=== PATIENT | male | born 1965 | race Two or more races ===

== ENCOUNTER 2018-07-27 07:04 | Emergency (ER) | payer MEDICARE, OTHER ==
[~2018-07-27] VITALS: Ht 177.8 cm; Wt 118.0 kg
--- NOTE | 2018-07-27 07:15 | NUR ---
[facility] [id number][facility] HYPERGLYCEMIA 497, PER PT "HE DID NOT GET HIS INSULIN YESTERDAY". PT DENIES PAIN. NAD NOTED. RESP EVEN AND UNLABORED. PT ON MONITOR IN BED 3. WILL CONTINUE TO MONITOR.
--- NOTE | 2018-07-27 07:25 | NUR ---
URINE COLLECTED AND SENT TO LAB
[2018-07-27] MEDS ORDERED: IV NS 0.9% 1,000 ML BAG IV ONE ×2 (07:30)
--- NOTE | 2018-07-27 07:35 | NUR ---
PHLEB AT BEDSIDE FOR LAB DRAW
[2018-07-27 07:47] LABS: APPEARANCE,URINE CLEAR (CLEAR); BILIRUBIN,URINE NEGATIVE (NEGATIVE); BLOOD, URINE NEGATIVE Ery/uL (NEGATIVE); COLOR,URINE YELLOW (YELLOW); KETONES,URINE TRACE (NEGATIVE); LEUKOCYTE ESTERASE ,URINE NEGATIVE (NEGATIVE); NITRITE, URINE NEGATIVE (NEGATIVE); PH,URINE 6.5 (5.0-8.0); PROTEIN,URINE NEGATIVE (NEGATIVE); UGLUCOSE 3+ mg/dL (NEGATIVE); UROBILINOGEN,URINE 0.2 EU/dL (0.2)
[2018-07-27 07:49] LABS: BASOPHILS % (AUTO) 0.5 % (0.0-2.0); EOSINOPHILS % (AUTO) 1.8 % (0.0-6.0); HEMATOCRIT 44 % (39-51); HEMOGLOBIN 15.1 g/dL (13.5-17.5); LYMPHOCYTES # (AUTO) 1.4 /CMM (0.8-4.8); LYMPHOCYTES % (AUTO) 23.1 % (20.0-44.0); MEAN CORPUSCULAR HGB CONC 34 g/dl (31.0-36.0); MEAN CORPUSCULAR VOLUME 91 fL (80-96); MONOCYTES # (AUTO) 0.6 /CMM (0.1-1.30); MONOCYTES % (AUTO) 9.1 % (2.0-12.0); NEUTROPHILS % (AUTO) 65.5 % (43.0-81.0); PLATELET COUNT (AUTO) 193 /CMM (150-450); RED BLOOD CELL COUNT(AUTO) 4.87 MIL/uL (4.5-6.0); WHITE BLOOD COUNT (AUTO) 6.1 K/uL (4.3-11.0)
[2018-07-27 07:54] LABS: BACTERIA,URINE Rare /HPF (None Seen); RBC,URINE 0-2 /HPF (0-2); SQUAMOUS EPITHELIAL CELL,UR Few /HPF (None Seen); WBC,URINE 0-2 /HPF (0-3)
[2018-07-27 08:02] LABS: ALBUMIN 3.1 g/dL (3.4-5.0); BILIRUBIN,DIRECT 0.1 mg/dL (0.0-0.2); BILIRUBIN,TOTAL 0.3 mg/dL (0.2-1.0); CALCIUM, SERUM 8.2 mg/dL (8.5-10.1); POTASSIUM 4.4 mmol/L (3.5-5.1); TOTAL PROTEIN, SERUM 6.7 g/dL (6.4-8.2)
[2018-07-27] MEDS ORDERED: INSULIN REGULAR, HUMAN 100 UNIT/ML 10 ML VIAL ONE ×2 (08:09→09:33)
[2018-07-27] MEDS ORDERED: METFORMIN XR 500 MG TAB.SR.24H PO ONE (08:22)
[2018-07-27] MEDS ORDERED: INSULIN REGULAR, HUMAN 100 UNIT/ML 10 ML VIAL SQ ONE (08:30)
[2018-07-27] MEDS ORDERED: METFORMIN 500 MG TABLET PO ONE (08:30)
--- NOTE | 2018-07-27 08:51 | NUR ---
BG 302. AWARE.
[2018-07-27] MEDS ORDERED: INSULIN REGULAR, HUMAN 100 UNIT/ML 3 ML VIAL IV ONE (09:30)
--- NOTE | 2018-07-27 10:15 | NUR ---
CALLED [facility] FOR TRANSPORT ETA OF [id number] WAS GIVEN. TRIP#[id number]
[2018-07-27 10:22] VITALS: BP 118/72
--- NOTE | 2018-07-27 11:40 | NUR ---
REPORT GIVEN TO TAWNYA NGUYEN FOR LEIDY
--- NOTE | 2018-07-27 11:48 | NUR ---
REPORT GIVEN TO CHARGE NURSGE IN [facility]
--- NOTE | 2018-07-27 12:15 | NUR ---
PT TRANSPORTED TO [facility] VIA PRIVATE AMBULANCE. PT LEFT IN STABLE CONDTION, GIVEN ALL PAPERWORKS TO TRANSPORT STAFF, LARON FROM [facility] AWARE.
== END 2018-07-27 13:25 ==
LOC: ER 07:06
DX: E11.65 Type 2 diabetes mellitus with hyperglycemia (principal); F20.9 Schizophrenia, unspecified; F41.9 Anxiety disorder, unspecified; Z91.19 Patient's noncompliance with other medical treatment and regimen
CPT/HCPCS: 36415; 80048-TC; 80076-TC; 81000-TC; 82010-TC; 82962-TC; 83690-TC; 85025-TC; J1815; J7030

== ENCOUNTER 2018-10-13 04:41 | Inpatient (IN) | payer MEDICARE, OTHER ==
[~2018-10-13] VITALS: Ht 180.3 cm; Wt 111.1 kg
--- NOTE | 2018-10-13 04:55 | NUR ---
BIB RA. AAOX4. NAD. NO SOB, BREATHING EVEN AND UNLABORED. CAME IN ON A WHEELCHAIR BUT ABLE TO AMBULATE ON HIS OWN. DENIES CP. CAME IN FOR C/O RFA SWELLING AND REDNESS, WARM AND DRY TO TOUCH. PT ALSO COMPLAINS OF R LOWER BACK PAIN, SHARP 01/15. TO ER BED 2. AWAITING MD FOR EVAL.
--- NOTE | 2018-10-13 05:21 | NUR ---
iv line obtained on l ac 18g. blood drawn and botany laboratory assistant at bedside. ekg done.
[2018-10-13 05:23] LABS: BASOPHILS # (AUTO) 0.1 /CMM (0.0-0.2); BASOPHILS % (AUTO) 0.6 % (0.0-2.0); HEMATOCRIT 39 % (39-51); HEMOGLOBIN 13.2 g/dL (13.5-17.5); LYMPHOCYTES # (AUTO) 0.5 /CMM (0.8-4.8); MEAN CORPUSCULAR HGB CONC 34 g/dl (31.0-36.0); MEAN CORPUSCULAR VOLUME 91 fL (80-96); MONOCYTES # (AUTO) 1.4 /CMM (0.1-1.30); NEUTROPHILS # (AUTO) 15.2 /CMM (1.8-8.9); NEUTROPHILS % (AUTO) 88.4 % (43.0-81.0); PLATELET COUNT (AUTO) 246 /CMM (150-450); WHITE BLOOD COUNT (AUTO) 17.2 K/uL (4.3-11.0)
[2018-10-13] MEDS ORDERED: PIPERACILLIN /TAZOBACTAM 3.375 G VIAL IV ONE (05:27)
[2018-10-13] MEDS ORDERED: IBUPROFEN 600 MG TABLET PO ONE ×2 (05:28→05:30)
[2018-10-13] MEDS ORDERED: VANCOMYCIN 1 GM in IV D5W 250 ML IV ONE (05:30)
[2018-10-13] MEDS ORDERED: IV NS 0.9% 1,000 ML BAG IV ONE (05:30)
[2018-10-13] MEDS ORDERED: PIPERACILLIN /TAZOBACTAM 3.375 G in IV D5W 50 ML IV ONE (05:30)
--- NOTE | 2018-10-13 05:31 | NUR ---
XRAY AT BEDSIDE
--- NOTE | 2018-10-13 05:35 | NUR ---
PAGED DR. GORDILLO FOR A PANNEL CALL.
[2018-10-13] MEDS ORDERED: VANCOMYCIN 1 GM VIAL ONE (05:43)
[2018-10-13 05:48] LABS: ALBUMIN 2.7 g/dL (3.4-5.0); BILIRUBIN,DIRECT 0.2 mg/dL (0.0-0.2); BILIRUBIN,TOTAL 0.9 mg/dL (0.2-1.0); CALCIUM, SERUM 8.9 mg/dL (8.5-10.1); CREATININE 1.4 mg/dL (0.6-1.3); POTASSIUM 4.7 mmol/L (3.5-5.1)
--- NOTE | 2018-10-13 06:17 | NUR ---
EPIC PAGED FOR PANEL CALL
--- NOTE | 2018-10-13 06:38 | NUR ---
PT IN BED SLEEPING. EASILY ARROUSABLE.
--- NOTE | 2018-10-13 06:42 | NUR ---
EPIC PAGED FOR PANEL CALL
--- NOTE | 2018-10-13 06:42 | NUR ---
Karine chakraborty in ED - 10/13/18 at 0644 by ARTIE PT PLACED ON VIA NC 2LPMFOR O2 SAT 93%.
--- NOTE | 2018-10-13 06:44 | NUR ---
PT PLACED ON 02 VIA NC 2LPMFOR O2 SAT 93%. DR. MUÑOZ MADE AWARE.
--- NOTE | 2018-10-13 07:18 | NUR ---
REPORT GIVEN TO TAWNYA ANDREWS FOR LEIDY. PT IN BED SLEEPING. EASILY ARROUSABLE. NAD NOTED.
--- NOTE | 2018-10-13 08:32 | NUR ---
report given to Trena BOWLING for idalia.
--- NOTE | 2018-10-13 08:45 | NUR ---
LABOR TRAINING MANAGER DOCTOR FROM [facility]
[2018-10-13 09:58] LABS: CREATININE, URINE 43.9 MG/DL (30.0-125.0); URINE TOTAL PROTEIN 146.1 mg/dL (0-11.9)
--- NOTE | 2018-10-13 10:00 | NUR ---
patient wheelled via gurney accompanied by emt and rn in no apparent distress noted.
[2018-10-13 10:06] LABS: APPEARANCE,URINE CLEAR (CLEAR); BILIRUBIN,URINE NEGATIVE (NEGATIVE); BLOOD, URINE 2+ Ery/uL (NEGATIVE); COLOR,URINE YELLOW (YELLOW); KETONES,URINE 2+ (NEGATIVE); LEUKOCYTE ESTERASE ,URINE NEGATIVE (NEGATIVE); NITRITE, URINE NEGATIVE (NEGATIVE); PROTEIN,URINE 2+ mg/dl (NEGATIVE); UGLUCOSE 3+ mg/dL (NEGATIVE); UROBILINOGEN,URINE 0.2 EU/dL (0.2)
--- NOTE | 2018-10-13 10:20 | NUR ---
MS ADMISSION NOTE RECEIVED PT FROM ER VIA GURNEY. PT AMBULATED WITH ASSIST TO BED. PT IS ALERT AND ORIENTED X4, DENIES CHEST PAIN, SOB, N/V. BREATHING IS EVEN AND UNLABORED ON 2L NC. PT STATES HE HAS PAIN IN THE RIGHT ARM, LOWER BACK, AND LEFT LEG RATED 10/10 AND SHARP. PT HAS A LEFT AC #18G IV THAT IS PATENT, CLEAN, DRY AND INTACT. UNIT ORIENTATION PROVIDED PER PROTOCOL. ALL BELONGINGS ACCOUNTED FOR, PT MEDICATIONS TAKEN TO PHARMACY, PACK OF CIGARETTES AND JOINT FINISHER TAKEN AND PLACED AT NURSING STATION. BED IS LOCKED AND IN LOWEST POSITION, SIDE RAILS UP X2, BED ALARM ON, CALL LIGHT AND POSSESSIONS WITHIN REACH. AWAITING ADMISSION ORDERS FROM STEPHAN CUI NP.
--- NOTE | 2018-10-13 10:27 | NUR ---
MS RN NOTE INFORMED STEPHAN CUI NP OF PT ADMISSION AND ELEVATED BLOOD SUGAR, AWAITING RESPONSE.
[2018-10-13 10:30] VITALS: BP 130/82
[2018-10-13] MEDS ORDERED: DEXTROSE 50%-WATER 50 ML DISP.SYRIN IV PRN (10:30)
--- NOTE | 2018-10-13 10:46 | NUR ---
MS RN NOTE PER STEPHAN CUI, BACK TENDER KEEP PT NPO, START AGGRESSIVE SLIDING SCALE INSULIN PROTOCOL. PER STEPHAN, NO FOOD OR SNACK WITH INSULIN ADMINISTRATION AT THIS TIME. AWAITING STATE LAB GLUCOSE LAB DRAW PER PROTOCOL.
[2018-10-13 10:51] LABS: WBC,URINE 0-2 /HPF (0-3)
[2018-10-13 10:55] LABS: BACTERIA,URINE Few /HPF (None Seen); SQUAMOUS EPITHELIAL CELL,UR Rare /HPF (None Seen)
[2018-10-13] MEDS ORDERED: ONDANSETRON HCL/PF 4 MG/2 ML VIAL IVP PRN (12:00)
--- NOTE | 2018-10-13 12:00 | NUR ---
MS RN CRITICAL LAB VALUE CRITICAL LAB VALUE OF GLUCOSE 519 REPORTED TO STEPHAN CUI NP PER PROTOCOL. ORDERS RECEIVED TO INITIATE AGRESSIVE SLIDING SCALE INSULIN AND ADMINISTER PER SLIDING SCALE. INFORMED STEPHAN THAT PT IS STILL NPO, PER STEPHAN RE CHECK BS IN 1 HOUR.
[2018-10-13] MEDS: BLOOD SUGAR DIAGNOSTIC 1 EACH STRIP IN SCH ×3 (12:15→20:54)
[2018-10-13] MEDS ORDERED: METF-440 PO (12:23)
[2018-10-13] MEDS: INSULIN REGULAR, HUMAN 100 UNIT/ML 3 ML VIAL SQ PRN ×2 (12:23→18:12)
[2018-10-13] MEDS ORDERED: ARIP5TAB10 PO (12:23)
[2018-10-13] MEDS ORDERED: FEE PK DOSING 1 MIN EA MC ONE (12:56)
[2018-10-13 13:47] LABS: EOSINOPHIL,URINE None Seen
--- NOTE | 2018-10-13 14:02 | NUR ---
MS RN NOTE INFORMED STEPHAN CUI NP THAT PT BS CHECK IS 447 AND THEN 427. PER STEPHAN NO STAT LAB DRAW NEEDED, ORDERS RECEIVED FOR 15 UNITS REGULAR INSULIN X1.
--- NOTE | 2018-10-13 14:03 | NUR ---
Social service consult requested by VILMA Barrera for homelessness. Pt. is a 52 year old male who was admitted to [facility] for sepsis and hyperglycemia. SW met with pt. bedside. Pt. is alert and oriented x 4. Pt. wears eyeglasses. Pt. had his eyes closed throughout the entire assessment. Pt. states he resides with his sister in an apartment located at [address] [place] [address]. However, pt. states he doesn't want to live there and wants to live in an assisted living/board and care facility. SW informed pt. she will inform lead case manager regarding his request. Pt's emergency contact is his mother Danielle Devi . Pt. states he is ambulatory with a walker. Pt. receives approximately $931 in [employer] money per month and states he will be getting an increase as well. Pt. denies any current alcohol use but has a history of alcohol use 20 years ago. Pt. has a history of using marijuana and "ICE" (crystal methamphetamines). Pt. is denies any current use of drugs. Pt. denies any psychiatric diagnoses. Pt. is diabetic. Pt's only complaint is that he is in pain. Pt' RN Tosha was bedside. No other social service needs are requested at this time.
[2018-10-13] MEDS ORDERED: INSULIN REGULAR, HUMAN 100 UNIT/ML 3 ML VIAL SQ ONE (14:30)
[2018-10-13] MEDS: IV NS 0.9% 1,000 ML IV PRN (14:49)
[2018-10-13 16:00] VITALS: BP 138/69
--- NOTE | 2018-10-13 16:24 | NUR ---
RN PT OFF UNIT PT OFF UNIT FOR CT SCAN.
--- NOTE | 2018-10-13 16:33 | NUR ---
MS BOWLING PT BACK ON UNIT PT BACK ON UNIT FROM CT SCAN
[2018-10-13] MEDS: HYDROCODONE/APAP 5/325MG 1 EACH TABLET PO PRN ×2 (16:51→21:56)
[2018-10-13] MEDS: PIPERACILLIN /TAZOBACTAM 3.375 G in IV D5W 50 ML IV SCH ×2 (16:52→20:54)
[2018-10-13] MEDS: VANCOMYCIN 1.25 GM in IV D5W 500 ML IV SCH (18:03)
--- NOTE | 2018-10-13 18:34 | NUR ---
MS RN CLOSING NOTE PT IN BED, RESTING WITH EYES CLOSED AND EASILY AROUSABLE. PT IS ALERT AND ORIENTED X4, DENIES CHEST PAIN, SOB, N/V. BREATHING IS EVEN AND UNLABORED ON 2L NC. PT HAS A LEFT AC #18G IV IS INFUSING ORDERED WITHOUT REDNESS OR SWELLING. UNIT ORIENTATION PROVIDED PER PROTOCOL. BED IS LOCKED AND IN LOWEST POSITION, SIDE RAILS UP X2, BED ALARM ON, CALL LIGHT AND POSSESSIONS WITHIN REACH. WILL ENDORSE TO SURVEY DIRECTOR NURSE FOR CONTINUITY OF CARE.
[2018-10-13] MEDS: ACETAMINOPHEN 325 MG TABLET PO PRN (18:39)
--- NOTE | 2018-10-13 18:39 | NUR ---
MS RN NOTE TYLENOL 650MG ADMINISTERED ORDERED FOR TEMPERATURE 100.7
[2018-10-13 20:00] VITALS: BP 143/77
--- NOTE | 2018-10-13 20:00 | NUR ---
MS/RN OPENING NOTES RECEIVED PATIENT IN BED, AWAKE, ALERT X3, ABLE TO VERBALIZE NEEDS, WITH CELLULITIS ON RIGHT UPPER ARM, RESPIRATIONS EVEN AND UNLABORED, REQUIRE ASSISTANCE AND MONITORING , BLOOD SUGAR ELEVATED AND WITH FEVER,ON ANTIBIOTIC THERAPHY, VITAL SIGNS CHECK . BED LOCKED CALL LIGHTS WITHIN REACH. INSTRUCTED TO CALL FOR ASSISTANCE, REQUESTED FOR SNACKS ONCE BLOOD SUGAR CHECK, EDUCATED ON DIET, WILL MONITOR.
[2018-10-13] MEDS: *INSULIN REGULAR(HUMULIN R)HUM 100 UNIT/ML VIAL SQ PRN (21:12)
--- NOTE | 2018-10-13 22:16 | NUR ---
MS/RN NOTES JENNIFER MCKEON MD CONTACTED LEFT MESSAGE AWAITING FOR ORDER FOR PAIN OF 9/10 LEVEL REPORTED BY PATIENT UNRELIEVED WITH NORCO 5-325 MG PO. WILL MONITOR.
[2018-10-14] MEDS: HYDROCODONE/APAP 5/325MG 1 EACH TABLET PO PRN ×3 (00:14→17:34)
--- NOTE | 2018-10-14 00:17 | NUR ---
MS/RN NOTES PATIENT REQUESTED FOR NORCO TO RELIEVE PAIN AT THIS TIME WILL MONITOR.
[2018-10-14] MEDS: ACETAMINOPHEN 325 MG TABLET PO PRN ×3 (02:12→20:21)
[2018-10-14] MEDS: PIPERACILLIN /TAZOBACTAM 3.375 G in IV D5W 50 ML IV SCH ×4 (02:40→20:24)
[2018-10-14] MEDS: BLOOD SUGAR DIAGNOSTIC 1 EACH STRIP IN SCH ×4 (06:08→21:24)
[2018-10-14] MEDS: VANCOMYCIN 1.25 GM in IV D5W 500 ML IV SCH ×3 (06:09→23:46)
[2018-10-14] MEDS: INSULIN REGULAR, HUMAN 100 UNIT/ML 3 ML VIAL SQ PRN ×3 (06:27→17:40)
--- NOTE | 2018-10-14 06:32 | NUR ---
MS/RN NOTES PATIENT BLOOD SUGAR CHECK AT 347, ADMINISTERED COVERAGE, HAD SNACK OF MILK AND CRACKERS. REPORTED BEING HUNGRY. EDUCATED REGARDING DIET RECOMMENDED. VERBALIZED.
--- NOTE | 2018-10-14 06:36 | NUR ---
313-MS/RN NOTES PATIENT ABLE TO SLEEP INTERMITENTLY WITH PAIN MONITORING, ON IV ANTIBIOTIC , ABLE TO VERBALIZE NEEDS, PROVIDED COMFORT MEASURES, MONITORED GYPO.HYPER GLYCEMIA. BED LOCKED, CLAL LIGHTS WITHIN REACH.]
--- NOTE | 2018-10-14 07:23 | NUR ---
ms/rn notes patient requested for pain medication 12/15 norco 5-325 mg po given, will monitor.
--- NOTE | 2018-10-14 07:30 | NUR ---
MS RN OPENING NOTE RECEIVED PATIENT FROM ENTRY LEVEL SOFTWARE DEVELOPER RN. PATIENT A/OX4, DENIES CHEST PAIN, SHORTNESS OF BREATH, N/V, BREATHING IS EVEN AND UNLABORED ON 2LPM N/C. PATIENT JUST RECEIVED NORCO / FROM ENTRY LEVEL SOFTWARE DEVELOPER RN FOR RIGHT SHOULDER PAIN. LEFT AC 18 GAUGE INFUSING VANCO ORDERED W/O REDNESS OR SWELLING. ALL NEEDS ATTENDED TO, BED LOCKED AND LOWEST POSITION, SIDE RAILS UPX2, SEIZURE PRECAUTIONS IN PLACE, BED ALARM ACTIVE, CALL LIGHT AND POSSESSIONS WITHIN REACH.
[2018-10-14 07:55] LABS: ALBUMIN 2.2 g/dL (3.4-5.0); BILIRUBIN,TOTAL 0.7 mg/dL (0.2-1.0); CALCIUM, SERUM 8.5 mg/dL (8.5-10.1); CREATININE 0.9 mg/dL (0.6-1.3); MAGNESIUM 1.9 mg/dL (1.8-2.4); POTASSIUM 4.4 mmol/L (3.5-5.1); TOTAL PROTEIN, SERUM 6.7 g/dL (6.4-8.2)
[2018-10-14 08:00] VITALS: BP 158/82
--- NOTE | 2018-10-14 08:10 | NUR ---
MS BOWLING CRITICAL VALUE RECEIVED CRITICAL GLUCOSE VALUE FROM LAB (367). INFORMED STEPHAN CUI NP. RECEIVED ORDERS TO REPEAT ACCUCHECK AND INFORM HER OF RESULTS.
[2018-10-14] MEDS: PANTOPRAZOLE 40 MG TABLET.DR PO SCH (08:28)
[2018-10-14] MEDS: ARIPIPRAZOLE 5 MG TABLET PO SCH (08:28)
[2018-10-14] MEDS: NICOTINE PATCH (14MG) 14 MG PATCH.TD24 TD SCH (08:28)
[2018-10-14 08:30] LABS: THYROID STIMULATING HORMONE 0.646 uIU/mL (0.358-3.74)
--- NOTE | 2018-10-14 08:35 | NUR ---
MS RN NOTE INFORMED STEPHAN CUI NP OF NEW ACCUCHECK RESULT. PER STEPHAN GIVE SCHEDULE LANTUS.
[2018-10-14] MEDS ORDERED: PANTOPRAZOLE 40 MG VIAL IV SCH (09:00)
[2018-10-14 09:19] LABS: BASOPHILS % (AUTO) 0.2 % (0.0-2.0); EOSINOPHILS % (AUTO) 0.2 % (0.0-6.0); HEMATOCRIT 40 % (39-51); HEMOGLOBIN 13.4 g/dL (13.5-17.5); LYMPHOCYTES # (AUTO) 0.4 /CMM (0.8-4.8); LYMPHOCYTES % (AUTO) 3.2 % (20.0-44.0); MEAN CORPUSCULAR HGB CONC 33 g/dl (31.0-36.0); MEAN CORPUSCULAR VOLUME 92 fL (80-96); MONOCYTES # (AUTO) 1.2 /CMM (0.1-1.30); MONOCYTES % (AUTO) 8.3 % (2.0-12.0); NEUTROPHILS # (AUTO) 12.6 /CMM (1.8-8.9); NEUTROPHILS % (AUTO) 88.1 % (43.0-81.0); PLATELET COUNT (AUTO) 191 /CMM (150-450); RED BLOOD CELL COUNT(AUTO) 4.41 MIL/uL (4.5-6.0); WHITE BLOOD COUNT (AUTO) 14.2 K/uL (4.3-11.0)
[2018-10-14] MEDS: INSULIN GLARGINE, 100 UNIT/ML CARTRIDGE SQ SCH ×2 (10:51→17:41)
[2018-10-14] MEDS ORDERED: NEUTRA PHOS 1 POWD.PACKET PO ONE (14:00)
[2018-10-14 15:51] VITALS: BP 158/74
--- NOTE | 2018-10-14 15:59 | NUR ---
MS RN NOTE PT WAS FOUND WITH LEFT AC PULLED STATING "IT FELL OUT". NO REDNESS OR SWELLING NOTED. NEW IV INSERTED #22 GAUGE LEFT FOREARM PIV. LINE PATENT, CLEAN, DRY, AND INTACT. PATIENT TOLERATED PROCEDURE WELL AND RECONNECTED TO IV ATB.
--- NOTE | 2018-10-14 16:56 | NUR ---
Patient is alert and pleasant, states he lives locally with his sister. He ambulates with a walker and independent with adl's. Patient does not want to return home. He is requesting B&C or SNF placement. Patient receives approximately $931 in SSI money per month and states he will be getting an increase. Patient denies any current alcohol use but has a history of alcohol use 20 years ago. Will refer patient to local SNF for acceptance. Addendum: 10/14/18 at 1657 by MO MARCH RN Amended: Links added.
[2018-10-14] MEDS: LACTOBACILLUS RHAMNOSUS GG 1 EACH CAP.SPRINK PO SCH (17:33)
[2018-10-14] MEDS: IV NS 0.9% 1,000 ML IV PRN (17:33)
--- NOTE | 2018-10-14 18:24 | NUR ---
MS RN CLOSING NOTE PT IN BED, RESTING WITH EYES CLOSED AND EASILY AROUSABLE. PT IS ALERT AND ORIENTED X4, DENIES CHEST PAIN, SOB, N/V. BREATHING IS EVEN AND UNLABORED ON 2L NC. PT HAS A LEFT FA #22G IV IS INFUSING ORDERED WITHOUT REDNESS OR SWELLING. UNIT ORIENTATION PROVIDED PER PROTOCOL. BED IS LOCKED AND IN LOWEST POSITION, SIDE RAILS UP X2, BED ALARM ON, CALL LIGHT AND POSSESSIONS WITHIN REACH. WILL ENDORSE TO RESOURCE COORDINATOR NURSE FOR CONTINUITY OF CARE.
--- NOTE | 2018-10-14 19:00 | NUR ---
MS RN NOTES Received patient in bed watching TV, alert, oriented x 4. Breathing even and unlabored. Not in any distress, on room air. IV antibiotic infusing well. No complaints at this time. Safety measures in place; call light within reach. Bed in low, locked position.Patient stable as endorsed by the morning RN. Will continue to monitor accordingly
[2018-10-14 20:00] VITALS: BP 168/80
--- NOTE | 2018-10-14 20:22 | NUR ---
RN NOTES Patient's temp. is 100.4. Tylenol 650mg PO given as ordered. Cooling measures initiated
[2018-10-14 20:41] VITALS: BP 168/80
[2018-10-14] MEDS: *INSULIN REGULAR(HUMULIN R)HUM 100 UNIT/ML VIAL SQ PRN (21:30)
--- NOTE | 2018-10-14 21:30 | NUR ---
RN NOTES BSL- 273mg/dL. 6units of insulin given per sliding scale. Snacks provided
[2018-10-14 21:50] VITALS: BP 139/76
--- NOTE | 2018-10-14 21:51 | NUR ---
RN NOTES Vital signs rechecked: BP- 139/76mmHg, HR-100bpm, Temp-99.0F
[2018-10-14] MEDS ORDERED: INSULIN GLARGINE, 100 UNIT/ML CARTRIDGE SQ SCH (22:00)
[2018-10-15] MEDS: HYDROCODONE/APAP 5/325MG 1 EACH TABLET PO PRN ×2 (02:37→11:11)
--- NOTE | 2018-10-15 02:38 | NUR ---
RN NOTES Patient c/o generalized pain, 01/15. Eclectic 5-325 given as ordered. Will continue to monitor
[2018-10-15] MEDS: PIPERACILLIN /TAZOBACTAM 3.375 G in IV D5W 50 ML IV SCH ×2 (02:58→10:53)
[2018-10-15] MEDS: BLOOD SUGAR DIAGNOSTIC 1 EACH STRIP IN SCH ×4 (06:33→21:07)
[2018-10-15] MEDS: INSULIN REGULAR, HUMAN 100 UNIT/ML 3 ML VIAL SQ PRN ×3 (06:35→18:00)
--- NOTE | 2018-10-15 06:40 | NUR ---
RN NOTES Patient's BSL 424mg/dL. Stat glucose lab draw done. 20 units of insulin given per sliding scale. VILMA Pinedo made aware. Awaiting for orders
[2018-10-15 06:59] LABS: BASOPHILS # (AUTO) 0.1 /CMM (0.0-0.2); BASOPHILS % (AUTO) 0.4 % (0.0-2.0); CALCIUM, SERUM 7.8 mg/dL (8.5-10.1); CREATININE 0.7 mg/dL (0.6-1.3); EOSINOPHILS % (AUTO) 0.3 % (0.0-6.0); HEMATOCRIT 35 % (39-51); HEMOGLOBIN 11.7 g/dL (13.5-17.5); LYMPHOCYTES # (AUTO) 0.7 /CMM (0.8-4.8); LYMPHOCYTES % (AUTO) 5.9 % (20.0-44.0); MAGNESIUM 1.9 mg/dL (1.8-2.4); MEAN CORPUSCULAR HGB CONC 34 g/dl (31.0-36.0); MEAN CORPUSCULAR VOLUME 90 fL (80-96); MONOCYTES # (AUTO) 1.3 /CMM (0.1-1.30); MONOCYTES % (AUTO) 9.8 % (2.0-12.0); NEUTROPHILS # (AUTO) 10.7 /CMM (1.8-8.9); NEUTROPHILS % (AUTO) 83.6 % (43.0-81.0); PHOSPHORUS 2.3 mg/dL (2.5-4.9); PLATELET COUNT (AUTO) 250 /CMM (150-450); POTASSIUM 4.1 mmol/L (3.5-5.1); RED BLOOD CELL COUNT(AUTO) 3.85 MIL/uL (4.5-6.0); WHITE BLOOD COUNT (AUTO) 12.7 K/uL (4.3-11.0)
--- NOTE | 2018-10-15 07:03 | NUR ---
RN NOTES Lab called for critical value of glucose 381. TRAUMA DIRECTOR Pankaj was already notified earlier. Still waiting for orders
--- NOTE | 2018-10-15 07:08 | NUR ---
MS RN CLOSING NOTES Patient sitting up in bed, alert, oriented x 4. Not in any distress. Peripheral IV infusing at 100mL/hr. All needs attended and met. Will endorse LEIDY to oncoming RN
--- NOTE | 2018-10-15 07:57 | NUR ---
MS RN NOTES PATIENT RESTING INSIDE ROOM. SLEEPING, EASILY AROUSABLE THROUGH VERBAL AND TACTILE STIMULI. BREATHING EVEN AND UNLABORE. NO ACUTE DISTRESS AT THIS TIME. NO CHANGES IN LOC NOTED AT THIS TIME. IV INTACT AND PATENT. WILL CONTINUE TO MONITOR. BED LOCKED AND IN LOW POSITION. BILATERAL UPPER SIDE RAILS UP AND LOCKED. CALL LIGHT WITHIN EASY REACH
[2018-10-15 08:00] VITALS: BP 145/83
[2018-10-15] MEDS: VANCOMYCIN 1.25 GM in IV D5W 500 ML IV SCH (08:37)
[2018-10-15] MEDS: IV NS 0.9% 1,000 ML IV PRN (08:38)
[2018-10-15] MEDS: INSULIN GLARGINE, 100 UNIT/ML CARTRIDGE SQ SCH ×2 (09:09→21:09)
[2018-10-15] MEDS: PANTOPRAZOLE 40 MG TABLET.DR PO SCH (09:10)
[2018-10-15] MEDS: LACTOBACILLUS RHAMNOSUS GG 1 EACH CAP.SPRINK PO SCH ×2 (09:10→18:01)
[2018-10-15] MEDS: ARIPIPRAZOLE 5 MG TABLET PO SCH (09:10)
[2018-10-15] MEDS: NICOTINE PATCH (14MG) 14 MG PATCH.TD24 TD SCH (09:10)
--- NOTE | 2018-10-15 10:47 | NUR ---
MS RN NOTES PATIENT SEEN AND EXAMINED BY STEPHAN CUI LINE CONTROLLER, WITH ORDER TO INFORM PHARMACY TO CHANGE IV ATB TO MIX WITH NS INSTEAD OF D5. PLACED CALL TO PHARMACY AND MADE AWARE. WILL CONTINUE TO MONITOR
[2018-10-15] MEDS ORDERED: VANCOMYCIN 1.25 GM in IV D5W 500 ML IV SCH (11:00)
[2018-10-15] MEDS ORDERED: K PHOS NEUTRAL 250 MG TABLET PO ONE (13:00)
[2018-10-15] MEDS: VANCOMYCIN 1.25 GM in IV NS 0.9% 500 ML IV SCH (15:10)
[2018-10-15] MEDS ORDERED: GADODIAMIDE 5 MMOL/10 ML VIAL ONE (15:59)
[2018-10-15 16:00] VITALS: BP 148/68
--- NOTE | 2018-10-15 17:02 | NUR ---
MS RN NOTES RECEIVED CALL FROM ON/CALL RADIOLOGY REGARDING SHIVAM VENOUS DOPPLER RESULT WITH REPORT OF POSITIVE DVT ON RIGHT BASILIC AND RIGHT CEPHALIC VEIN. PLACED CALL TO STEPHAN CUI PRINCIPAL SOFTWARE ARCHITECT WITH NEW ORDER TO START HEPARIN DRIP. ALSO GOT OK TO START MIDLINE INSERTION. ORDER NOTED AND CARRIED OUT. PATIENT MADE AWARE AND VERBALIZED UNDERSTANDING. PHARMACY MADE AWARE. WILL CONTINUE TO MONITOR
[2018-10-15] MEDS: PIPERACILLIN /TAZOBACTAM 3.375 G in IV NS 0.9% 50 ML IV SCH ×2 (17:35→23:29)
[2018-10-15] MEDS: ACETAMINOPHEN 325 MG TABLET PO PRN (18:01)
--- NOTE | 2018-10-15 18:26 | NUR ---
MS RN NOTES INIATED HEPARIN BOLUS 8000 UNITS IV, WITNESSED BY JUNIOR BOWLING. AWAITING FOR HEPARIN DRIP FROM PHARMACY
[2018-10-15] MEDS ORDERED: HEPARIN SODIUM, PORCINE 5000 UNITS/1 ML VIAL IV ONE (18:30)
[2018-10-15] MEDS ORDERED: HEPARIN INFUSION/D5W 500 ML IV PRN (18:30)
--- NOTE | 2018-10-15 19:00 | NUR ---
MS RN NOTES STARTED HEPARIN DRIP. PATIENT TOLERATING WELL. WILL CONTINUE TO MONITOR
--- NOTE | 2018-10-15 19:00 | NUR ---
MS RN NOTES PATIENT RESTING INSIDE ROOM. AWAKE, ALERT AND ORIENTED, VERBALLY RESPONSIVE AND RESPONDS TO VERBAL AND TACTILE STIMULI. IVF INFUSING WELL. NO S/S OF BLEEDING NOTED AT THIS TIME. WILL ENDORSE TO INCOMING SHIFT. BED LOCKED AND IN LOW POSITION. BILATERAL UPPER SIDE RAILS UP AND LOCKED. CALL LIGHT WITHIN EASY REACH
--- NOTE | 2018-10-15 19:25 | NUR ---
MS/RN OPENING NOTES PT RECEIVED AWAKE, SITTING UP IN BED. ON ROOM AIR, BREATHING EVEN AND UNLABORED. DENIES SOB AND PAIN AT THIS TIME. VAMSI MIDLINE, LFA IV AND LAC IV ALL PATENT AND INTACT RUNNING IVF ORDERED. HEPARIN GTT RUNNING AT 36ML/HR. AWAITING NEXT PTT FOR 0030. NO NEEDS EXPRESSED AT THIS TIME. BED IN LOW/LOCKED POSITION WITH HOB ELEVATED AND BILAT. UPPER SIDE RAILS IN PLACE. WILL CONTINUE TO MONITOR
[2018-10-15 20:00] VITALS: BP 146/77
[2018-10-15] MEDS: *INSULIN REGULAR(HUMULIN R)HUM 100 UNIT/ML VIAL SQ PRN (21:09)
[2018-10-16] MEDS: VANCOMYCIN 1.25 GM in IV NS 0.9% 500 ML IV SCH ×3 (00:17→16:16)
[2018-10-16] MEDS: HYDROCODONE/APAP 5/325MG 1 EACH TABLET PO PRN (02:10)
--- NOTE | 2018-10-16 02:15 | NUR ---
MS/RN NOTES SPOKE TO LAB TO FOLLOW UP ON RESULT OF PTT. AWAITING RESULT Addendum: 10/16/18 at 0300 by NAOMI KLEIN RN CRITICAL PTT = 88.2 READBACK PER PROTOCOL. DECREASED HEPARIN GTT BY 200 UNITS/KG. NOW RUNNING AT 1600 UNIT/HR (32ML/HR) QUENCHER OPERATOR NOTIFIED
--- NOTE | 2018-10-16 05:27 | NUR ---
MS/RN NOTES PT BECAME UPSET AND AGITATED. RAISING VOICE AND THREATENING TO PULL IV'S AND DEMANDING TO LEAVE AMA. UNABLE TO REDIRECT PATIENT AND CALM HIM DOWN. MIDDLE SCHOOL ASSISTANT PRINCIPAL TRIED TO DE-ESCALATE WITH NO SUCCESS. PAGED EPIC
--- NOTE | 2018-10-16 05:50 | NUR ---
MS/RN NOTES EPIC CALLED BACK. ABLE TO CALM PT DOWN AND PROVIDED SNACKS. INFORMED JENNIFER MCKEON NP OF SITUATION. WITH ORDERS FOR ATIVAN 1MG IV X ONE. ORDERS READBACK PER PROTOCOL. WILL ADMINISTER ORDERED.
[2018-10-16] MEDS ORDERED: LORAZEPAM INJ 2 MG/ML VIAL IV ONE ×2 (06:00→10:20)
[2018-10-16] MEDS: PIPERACILLIN /TAZOBACTAM 3.375 G in IV NS 0.9% 50 ML IV SCH ×4 (06:09→23:52)
[2018-10-16] MEDS: INSULIN REGULAR, HUMAN 100 UNIT/ML 3 ML VIAL SQ PRN ×4 (06:21→21:27)
[2018-10-16] MEDS: BLOOD SUGAR DIAGNOSTIC 1 EACH STRIP IN SCH ×4 (06:22→21:22)
--- NOTE | 2018-10-16 07:40 | NUR ---
MS/RN CLOSING NOTES PT AWAKE, RESTING COMFORTABLY IN BED. ON ROOM AIR, BREATHING EVEN AND UNLABORED. DENIES SOB AND PAIN AT THIS TIME. VAMSI MIDLINE, LFA IV AND LAC IV ALL PATENT AND INTACT RUNNING IVF ORDERED. HEPARIN GTT CHANGED TO 1600 UNITS/HR(32ML/HR) PER PROTOCOL. NEXT PTT TO BE DRAWN AT 0900. PT IS MORE CALM POST ADMINISTRATION OF ATIVAN. DIRECTABLE AND FOLLOWS COMMANDS. BED IN LOW/LOCKED POSITION WITH HOB ELEVATED AND BILAT. UPPER SIDE RAILS IN PLACE. ENDORSED TO DAY SHIFT RN LEIDY.
--- NOTE | 2018-10-16 07:41 | NUR ---
M/S RN OPENING NOTES RECEIVED PATIENT ON BED A/O X 3 AND ABLE TO MAKE NEEDS KNOWN, RESPONSIVE TO ALL STIMULI. RESPIRATION EVEN AND NON LABORED WITH NO ACUTE RESPIRATORY DISTRESS. ABDOMEN SOFT AND NON DISTENDED WITH ACTIVE BOWEL SOUNDS. SKIN WARM TO TOUCH AND DRY. DENIES PAIN AND DISCOMFORT. LEFT FA, LAC AND VAMSI MIDLINE WITH NS AT 100 CC/HR, HEPARIN 1600 U/HR WITH WAITING LAB DRAW AT 0900 FOR HEPARIN ADJUSTMENT. ALL CONCERNS ADDRESSED. PLACED CALL LIGHT WITHIN REACH FOR SAFETY. WILL CONTINUE TO EVALUATE CARE.
[2018-10-16 08:00] VITALS: BP 132/75
[2018-10-16] MEDS: LACTOBACILLUS RHAMNOSUS GG 1 EACH CAP.SPRINK PO SCH ×2 (08:23→16:42)
[2018-10-16] MEDS: PANTOPRAZOLE 40 MG TABLET.DR PO SCH (08:23)
[2018-10-16] MEDS: NICOTINE PATCH (14MG) 14 MG PATCH.TD24 TD SCH (08:23)
[2018-10-16] MEDS: ARIPIPRAZOLE 5 MG TABLET PO SCH (08:23)
[2018-10-16] MEDS: INSULIN GLARGINE, 100 UNIT/ML CARTRIDGE SQ SCH (08:30)
[2018-10-16 09:42] LABS: BASOPHILS # (AUTO) 0.1 /CMM (0.0-0.2); BASOPHILS % (AUTO) 1.4 % (0.0-2.0); EOSINOPHILS % (AUTO) 0.8 % (0.0-6.0); HEMATOCRIT 33 % (39-51); HEMOGLOBIN 11.1 g/dL (13.5-17.5); LYMPHOCYTES # (AUTO) 0.8 /CMM (0.8-4.8); LYMPHOCYTES % (AUTO) 8.4 % (20.0-44.0); MEAN CORPUSCULAR HGB CONC 34 g/dl (31.0-36.0); MEAN CORPUSCULAR VOLUME 91 fL (80-96); MONOCYTES # (AUTO) 0.9 /CMM (0.1-1.30); MONOCYTES % (AUTO) 9.2 % (2.0-12.0); NEUTROPHILS # (AUTO) 7.4 /CMM (1.8-8.9); NEUTROPHILS % (AUTO) 80.2 % (43.0-81.0); PLATELET COUNT (AUTO) 331 /CMM (150-450); RED BLOOD CELL COUNT(AUTO) 3.64 MIL/uL (4.5-6.0); WHITE BLOOD COUNT (AUTO) 9.2 K/uL (4.3-11.0)
[2018-10-16 09:55] LABS: ALBUMIN 1.6 g/dL (3.4-5.0); BILIRUBIN,TOTAL 0.3 mg/dL (0.2-1.0); CALCIUM, SERUM 7.4 mg/dL (8.5-10.1); CREATININE 0.8 mg/dL (0.6-1.3); MAGNESIUM 1.9 mg/dL (1.8-2.4); POTASSIUM 3.8 mmol/L (3.5-5.1); TOTAL PROTEIN, SERUM 5.7 g/dL (6.4-8.2)
--- NOTE | 2018-10-16 10:10 | NUR ---
M/S RN NOTES RECEIVED A CALL FROM KIZZY AT LAB DUE TO HIGH GLUCOSE OF 42. PAGED JANNET HORTICULTURE SUPERVISOR AND WILL SEE PATIENT ON FLOOR.
--- NOTE | 2018-10-16 10:21 | NUR ---
M/S RN NOTES PATIENT TRYING TO PULL OUT IV LINE AND GETTING OUT OF THE BED UNASSISTED, PATIENT ON HEPARIN DRIP AND VANCOMYCIN RUNNING. PROVIDED THERAPEUTIC COMMUNICATION, EXPLAIN TREATMENT PLANS AND PATIENT STILL WITH AGGRESSIVE BEHAVIOR. PATIENT PLACE OF SAFE ENVIRONMENT AT THIS TIME. CALLED JANNET ELDER COUNSELOR WITH NEW ORDER OF ATIVAN 1 MG IB ONE TIME DOSE ONLY. READ BACK ORDER, NOTED AND CARRIED OUT. WILL CONTINUE TO MONITOR CARE.
--- NOTE | 2018-10-16 10:40 | NUR ---
N/S RN NOTES PATIENT SEEN BY JANNET ESPARZA. HELD ATIVAN ORDERED. 2 MG WASTED WITNESSED BY TAWNYA CHOPRA. REFERRED TO PSYCH EVAL DISCUSSED. PROVIDED SAFETY RO PATIENT
--- NOTE | 2018-10-16 11:00 | NUR ---
M/S RN NOTED APTT RESULT 52.5, JANNET TEAM MEMBER NOTIFIED WITH NEW ORDER TO DC HEPARIN DRIP AND CHANGE TO LOVENOX 100 MG SQ Q12. ORDER READ BACK, NOTED AND CARRIED OUT. PATIENT NOTIFIED
[2018-10-16 11:10] LABS: BAND % (MANUAL) 4 % (0.0-5.0); LYMPHOCYTES % (MANUAL) 10 % (16-48); MONOCYTES % (MANUAL) 9 % (0-11.0); MYELOCYTES % 1 % (0-0); NEUTROPHILS % (MANUAL) 76 (42-76)
[2018-10-16] MEDS: IV NS 0.9% 1,000 ML IV PRN (11:37)
--- NOTE | 2018-10-16 12:21 | NUR ---
M/S RN NOTES JANNET PLAN EXAMINER WITH EZ RODER TO D/C ACCUCHECK AGGRESSIVE CHANGE TO MILD ACHS. READ BACK ORDER,NOTED AND CARRIED OUT. PATIENT NOTIFIED
[2018-10-16] MEDS: ENOXAPARIN SODIUM 100 MG/ML DISP.SYRIN SQ SCH ×2 (12:26→21:27)
[2018-10-16] MEDS ORDERED: DEXTROSE 50%-WATER 50 ML DISP.SYRIN IV PRN (12:30)
[2018-10-16] MEDS: INSULIN ASPART/LISPRO 100 UNIT/ML CARTRIDGE SQ SCH ×2 (14:04→17:39)
[2018-10-16 16:00] VITALS: BP 154/82
[2018-10-16] MEDS ORDERED: PROSOURCE / PROSTAT (PYXIS) 30 ML UDC PO SCH (17:00)
--- NOTE | 2018-10-16 18:57 | NUR ---
M/S RN CLOSING NOTES PATIENT A/O X 4 AND ABLE TO MAKE NEEDS KNOWN, SLEEPY BUT EASILY AROUSABLE. WITH BEHAVIOR OF PULLING OUT OF IV YET REDIRECTABLE. RESPIRATION EVEN AND NON LABORED WITH NO ACUTE RESPIRATORY DISTRESS. ABDOMEN SOFT AND NON DISTENDED WITH ACTIVE BOWEL SOUNDS. SKIN WARM TO TOUCH AND DRY. WITH 100.2 TEMP, TSB PERFORMED WITH PATIENT WENT DOWN TO 98.7, ADJUSTED ROOM TEMP, PATIENT COMFORTABLE VERBALIZED. REFUSED TYLENOL ORDERED WITH RISK AND BENEFITS DISCUSSED, PER PATIENT HE IS USED TO BEING WARM AND TSB IS OKAY. DENIES PAIN AND DISCOMFORT. IV SITES AT LEFT FA, LEFT AC, LEFT UA MIDLINE WITH PATENT IN FLUSHING, NS RUNNING AT 100 CC/HR. ALL CONCERNS ADDRESSED. PLACED CALL LIGHT WITHIN REACH FOR SAFETY. ENDORSED PATIENT CARE TO NEXT SHIFT.
--- NOTE | 2018-10-16 19:30 | NUR ---
MS/RN RECEIVE PATIENT IN BED AWAKE, ALERT, ORIENTED, COMFORTABLE, NO SIGNS OF DISTRESS NOTED, CALL LIGHT IN REACH. WILL MONITOR.
[2018-10-16 20:00] VITALS: BP 140/69
[2018-10-16] MEDS ORDERED: ARIPIPRAZOLE 5 MG TABLET PO SCH (22:00)
[2018-10-16] MEDS ORDERED: INSULIN GLARGINE, 100 UNIT/ML CARTRIDGE SQ SCH (22:00)
--- NOTE | 2018-10-16 22:23 | NUR ---
MS/RN PATIENT IS SLEEPING AT THIS TIME, AROUSABLE, APPEAR COMFORTABLE, NO SIGNS OF DISTRESS NOTED, CALL LIGHT IN REACH. WILL CONTINUE TO MONITOR.
[2018-10-17] MEDS: VANCOMYCIN 1.25 GM in IV NS 0.9% 500 ML IV SCH (01:07)
[2018-10-17] MEDS: HYDROCODONE/APAP 5/325MG 1 EACH TABLET PO PRN (01:15)
--- NOTE | 2018-10-17 04:14 | NUR ---
MS/RN AROUND 0300, I ANSWERED THE CALL LIGHT, PATIENT SAID HE WANTS TO TALK TO HIS NURSE. I WENT TO THE ROOM, FOUND PATIENT DRESSED UP, AWAKE, ALERT, ORIENTED, AND TOLD ME THAT HE WANTS TO GO AGAINST MEDICAL ADVICE (AMA), I ASKED THE PATIENT THE REASON WHY AT THIS VERY WELDER MACHINE OPERATOR HE SUDDENLY WANTS TO GO AMA, PATIENT REPLIED " BECAUSE I WANT TO GO", INFORMED THE PATIENT ABOUT THE RISK AND CONSEQUENCES OF GOING AMA, AMONG OTHERS, THE HOSPITAL AND THE DOCTOR WILL NOT BE RESPONSIBLE IF SOMETHING HAPPENED TO HIM, PATIENT VERBALIZED UNDERSTANDING, BUT STILL INSISTED TO GO AMA. CHARGE NURSE MADE AWARE AND SHE ALSO TALKED TO THE PATIENT BUT WAS UNABLE TO CONVINCE THE PATIENT TO STAY. CHARGE NURSE THEN CALLED THE NURSING JOURNEYMAN PRESS OPERATOR AND MADE HER AWARE ABOUT THE PATIENT'S GOING AMA. I MADE A CALL TO [employer] TO INFORM THE DOCTOR, AT AROUND 0330, LEFT MESSAGE. PATIENT SIGNED PERTINENT PAPER WORKS FOR AMA, IV LINES INCLUDING MIDLINE WERE REMOVED, ARM BAND REMOVED, BELONGINGS RETURNED TO THE PATIENT. ADVISED THE PATIENT TO RETURN TO THE E.R. HE FEELS NECESSARY, PATIENT VERBALIZED UNDERSTANDING. PATIENT HAS HOME MEDS AT THE PHARMACY BUT HE WAS VERY EAGER TO LEAVE AND THAT HE CAN NOT WAIT. PATIENT LEFT THE FLOOR AT AROUND 0355. DR. JENNIFER MCKEON CALLED BACK AT AROUND 0400 INFORMED HIM THAT THE PATIENT WENT AMA.
== END 2018-10-17 03:55 | disposition left against medical advice (07) | DRG 871 ==
LOC: ER 04:44 → TELE 08:41 → MED 10:43
PROVIDERS: ADMIT Registered Nurse; ATTEND Nurse Practitioner Acute Care
PROC: 05H633Z Insertion of Infusion Device into Left Subclavian Vein, Percutaneous Approach (ICD-10-PCS; principal; 2018-10-15)
PROC: B547ZZA Ultrasonography of Left Subclavian Vein, Guidance (ICD-10-PCS; 2018-10-15)
DX: A41.01 Sepsis due to Methicillin susceptible Staphylococcus aureus (principal); J15.9 Unspecified bacterial pneumonia; N17.0 Acute kidney failure with tubular necrosis; L03.113 Cellulitis of right upper limb; E44.0 Moderate protein-calorie malnutrition; E87.1 Hypo-osmolality and hyponatremia; I82.621 Acute embolism and thrombosis of deep veins of right upper extremity; E11.65 Type 2 diabetes mellitus with hyperglycemia; Z59.0 Homelessness; G40.909 Epilepsy, unspecified, not intractable, without status epilepticus; I10 Essential (primary) hypertension; F20.9 Schizophrenia, unspecified; F41.9 Anxiety disorder, unspecified; F17.210 Nicotine dependence, cigarettes, uncomplicated; I80.9 Phlebitis and thrombophlebitis of unspecified site; E88.09 Other disorders of plasma-protein metabolism, not elsewhere classified; Z68.34 Body mass index [BMI] 34.0-34.9, adult; F19.10 Other psychoactive substance abuse, uncomplicated; E66.9 Obesity, unspecified; J44.9 Chronic obstructive pulmonary disease, unspecified; E86.9 Volume depletion, unspecified; D72.829 Elevated white blood cell count, unspecified; E83.39 Other disorders of phosphorus metabolism; M51.26 Other intervertebral disc displacement, lumbar region; M25.429 Effusion, unspecified elbow; M77.9 Enthesopathy, unspecified; F15.159 Other stimulant abuse with stimulant-induced psychotic disorder, unspecified; Z91.81 History of falling; D64.9 Anemia, unspecified
CPT/HCPCS: 36415; 36569; 71045-TC; 71250-TC; 73223-TC; 80048-TC; 80053-TC; 80061-TC; 80076-TC; 80202-TC; 80305; 81000-TC; 82570-TC; 82947-TC; 82962-TC; 83605-TC; 83735-TC; 83935-TC; 84100-TC; 84155-TC; 84300-TC; 84443-TC; 84484-TC; 85025-TC; 85730-TC; 87040-TC; 87070-TC; 87081-TC; 93971-TC; 97116-TC; 97530-TC; A4216; A9579; G0378; J1644; J1650; J1815; J2060; J2405; J2543; J3370; J7030; J7040; J7050; J7060

== ENCOUNTER 2018-10-17 20:58 | Emergency (ER) | payer MEDICARE, OTHER ==
[~2018-10-17] VITALS: Ht 180.3 cm; Wt 108.4 kg
[~2018-10-17 20:58] MED LIST: ARIP5TAB10 PO; METF-440 PO
--- NOTE | 2018-10-17 21:13 | NUR ---
PT BIBS. C/O "I REALLY NEED HEPARIN TREATMENT FOR MY STD." -DIZZY AOX4. -N/V -SOB -ACUTE DISTRESS. AMBULATORY W.STEADY GAIT.
[2018-10-17 21:22] VITALS: BP 135/75
--- NOTE | 2018-10-17 23:45 | NUR ---
Patient is resting comfortably in bed with eyes closed. Easily aroused. VSS
--- NOTE | 2018-10-18 01:46 | NUR ---
Patient is resting comfortably in bed with eyes closed. Easily aroused. VSS
== END 2018-10-18 02:42 | disposition home or self-care (01) ==
LOC: ER 21:06
DX: F41.9 Anxiety disorder, unspecified (principal); F20.0 Paranoid schizophrenia; G40.909 Epilepsy, unspecified, not intractable, without status epilepticus; I10 Essential (primary) hypertension; E11.9 Type 2 diabetes mellitus without complications; F17.200 Nicotine dependence, unspecified, uncomplicated; Z59.0 Homelessness; Z88.9 Allergy status to unspecified drugs, medicaments and biological substances

== ENCOUNTER 2018-10-18 03:58 | Emergency (ER) | payer MEDICARE, OTHER ==
[~2018-10-18] VITALS: Ht 170.2 cm; Wt 90.7 kg
[2018-10-18 04:12] VITALS: BP 142/88
--- NOTE | 2018-10-18 04:33 | NUR ---
PT WAITING FOR RN TELE IN THE AM.
--- NOTE | 2018-10-18 10:21 | NUR ---
SW met with pt. in the waiting area since pt. was discharged earlier today. Pt. is a 52 year old male who came to [facility] ED complaining of anxiety and wanting to see a SW regarding placement. Pt. is alert and oriented x 4. Pt had his backpack next to him. Pt. states he would like to be placed at [facility] located on [facility] in [place]. Pt contacted [facility] and SW spoke with Rhea who informed SW that they do not have an opening at this time. Pt. has a history of Schizophrenia. SW offered pt. voluntary psychiatric admission, however pt. declined. SW offered pt. other homeless usp resources, but pt. declined stating he knows all about the homeless resources. Pt. requested for a TAP card which was provided to him. No other social science research assistant are needed at this time.
== END 2018-10-18 05:24 | disposition home or self-care (01) ==
LOC: ER 04:00
DX: F41.9 Anxiety disorder, unspecified (principal); F20.0 Paranoid schizophrenia; I10 Essential (primary) hypertension; E11.9 Type 2 diabetes mellitus without complications; G40.909 Epilepsy, unspecified, not intractable, without status epilepticus; F17.200 Nicotine dependence, unspecified, uncomplicated; Z59.0 Homelessness; Z88.9 Allergy status to unspecified drugs, medicaments and biological substances

== ENCOUNTER 2019-02-23 07:31 | Emergency (ER) | payer MEDICARE, OTHER ==
[~2019-02-23] VITALS: Ht 180.3 cm; Wt 99.3 kg
--- NOTE | 2019-02-23 07:37 | NUR ---
[id number], FROM HOME, C/O RLQ PAIN x 2-3 WEEKS, LAST BM 3 DAYS AGO, ALSO HAVING A HARD TIME URINATING, 02/15 PS, PATIENT ON NECK COLLAR FOR S/P SPINAL SURGERY 4 MONTHS AGO. TO ER BED 10, HOOKED TO MONITOR, CHANGED TO HOSPITAL [facility], PROVIDED W WARM BLANKET, AWAITING MD ABRAMS.
--- NOTE | 2019-02-23 07:45 | NUR ---
DR GREY AT BEDSIDE
[2019-02-23 08:09] LABS: BASOPHILS # (AUTO) 0.1 /CMM (0.0-0.2); BASOPHILS % (AUTO) 0.9 % (0.0-2.0); BILIRUBIN,URINE Negative (NEGATIVE); BLOOD, URINE Small Ery/uL (NEGATIVE); COLOR,URINE Yellow (YELLOW); HEMATOCRIT 35 % (39-51); HEMOGLOBIN 11.1 g/dL (13.5-17.5); KETONES,URINE Negative (NEGATIVE); LEUKOCYTE ESTERASE ,URINE Negative (NEGATIVE); LYMPHOCYTES # (AUTO) 1.1 /CMM (0.8-4.8); LYMPHOCYTES % (AUTO) 17.6 % (20.0-44.0); MEAN CORPUSCULAR HGB CONC 32 g/dl (31.0-36.0); MEAN CORPUSCULAR VOLUME 81 fL (80-96); MONOCYTES # (AUTO) 0.6 /CMM (0.1-1.30); NEUTROPHILS # (AUTO) 4.5 /CMM (1.8-8.9); NEUTROPHILS % (AUTO) 69.5 % (43.0-81.0); NITRITE, URINE Negative (NEGATIVE); PLATELET COUNT (AUTO) 310 /CMM (150-450); PROTEIN,URINE >=300 mg/dl (NEGATIVE); RED BLOOD CELL COUNT(AUTO) 4.32 MIL/uL (4.5-6.0); UGLUCOSE Negative (NEGATIVE); UROBILINOGEN,URINE 0.2 EU/dL (0.2); WHITE BLOOD COUNT (AUTO) 6.5 K/uL (4.3-11.0)
[2019-02-23 08:10] LABS: APPEARANCE,URINE Slightly Hazy (CLEAR)
[2019-02-23 08:18] LABS: BACTERIA,URINE None seen /HPF (None Seen); CREATININE 1.1 mg/dL (0.6-1.3); POTASSIUM 4.9 mmol/L (3.5-5.1); SQUAMOUS EPITHELIAL CELL,UR Few /HPF (None Seen); WBC,URINE 0-2 /HPF (0-3)
[2019-02-23 08:24] LABS: ALBUMIN 2.9 g/dL (3.4-5.0); BILIRUBIN,DIRECT 0.1 mg/dL (0.0-0.2); BILIRUBIN,TOTAL 0.2 mg/dL (0.2-1.0); TOTAL PROTEIN, SERUM 8.5 g/dL (6.4-8.2)
[2019-02-23] MEDS ORDERED: IOHEXOL-300 100 ML VIAL IV ONE (08:28)
[2019-02-23] MEDS ORDERED: IV NS 0.9% 250 ML IV ONE (08:28)
[2019-02-23] MEDS ORDERED: CT SWABBABLE VALVE TRANS SET 1 EA INFUS.SET MC ONE (08:28)
--- NOTE | 2019-02-23 08:30 | NUR ---
WHEELED OUT VIA RNEY FOR CT SCAN
--- NOTE | 2019-02-23 09:42 | NUR ---
Boarding Room Fixer Daphnie at bedside
[2019-02-23 09:58] VITALS: BP 146/97
--- NOTE | 2019-02-23 10:00 | NUR ---
Social service consult requested by NIC Lynn for possible homelessness. Pt. is a 53 year old male with history of seizure disorder, schizophrenia, remote cholecystectomy, and more recent spinal injury status post long-term neck brace, currently presenting with intermittent right lower quadrant abdominal pains over the prior 2 weeks. Patient states that he has had such pain intermittently and presented today for evaluation as the pain has not abated over time. SW met with pt. bedside. Pt. is alert and oriented x 4. Pt. states he is homeless as of February 04 but has been staying at his mom's house in [place]. SW offered pt. fci placement, however pt. declined staying he will go back to his mom's house located at [address] [place] [phone] in [place]. Pt. denies suicidal and homicidal ideations and visual/auditory hallucinations. Pt. is ambulatory with a steady gait using a walker. Pt. declined all resources. Homeless patient waiver form was signed by the pt. and placed in pt's chart. Pt. was provided with TAP card.
--- NOTE | 2019-02-23 10:01 | NUR ---
Patient given written and verbal discharge instructions. Patient verbalizes understanding of instructions. Patient is ambulatory using walker with steady gait. Refuses offer of half-way placement. Patient given list of available shelters in surrounding area. patient in proper clothing upon discharge, name band removed. Tapcard provided
== END 2019-02-23 10:05 | disposition home or self-care (01) ==
LOC: ER 07:39
DX: N28.89 Other specified disorders of kidney and ureter (principal); G40.909 Epilepsy, unspecified, not intractable, without status epilepticus; I10 Essential (primary) hypertension; E11.9 Type 2 diabetes mellitus without complications; F20.0 Paranoid schizophrenia; F17.200 Nicotine dependence, unspecified, uncomplicated; Z88.8 Allergy status to other drugs, medicaments and biological substances; Z59.0 Homelessness; Z79.84 Long term (current) use of oral hypoglycemic drugs; Z79.899 Other long term (current) drug therapy
CPT/HCPCS: 36415; 74177; 80048; 80076; 81001; 83605; 83690; 85025; 99284; J7050; Q9967; 81000-TC

== ENCOUNTER 2021-08-09 12:52 | Emergency (ER) | payer MEDICARE, OTHER ==
[~2021-08-09] VITALS: Ht 180.3 cm; Wt 106.6 kg
--- NOTE | 2021-08-09 13:09 | NUR ---
DR SQUIRES AT BEDSIDE
--- NOTE | 2021-08-09 13:35 | NUR ---
URINE SAMPLE COLLECTED AND SENT TO LAB
[2021-08-09 13:57] LABS: BASOPHILS % (AUTO) 0.7 % (0.0-2.0); EOSINOPHILS % (AUTO) 1.6 % (0.0-6.0); HEMATOCRIT 31 % (39-51); HEMOGLOBIN 9.8 g/dL (13.5-17.5); LYMPHOCYTES # (AUTO) 0.8 K/uL (0.8-4.8); LYMPHOCYTES % (AUTO) 12.2 % (20.0-44.0); MEAN CORPUSCULAR HGB CONC 32 g/dl (31.0-36.0); MEAN CORPUSCULAR VOLUME 83 fL (80-96); MONOCYTES # (AUTO) 0.5 K/uL (0.1-1.30); MONOCYTES % (AUTO) 8.1 % (2.0-12.0); NEUTROPHILS # (AUTO) 5.1 K/uL (1.8-8.9); NEUTROPHILS % (AUTO) 77.4 % (43.0-81.0); PLATELET COUNT (AUTO) 329 K/uL (150-450); RED BLOOD CELL COUNT(AUTO) 3.69 MIL/uL (4.5-6.0); WHITE BLOOD COUNT (AUTO) 6.6 K/uL (4.3-11.0)
[2021-08-09 13:58] LABS: BILIRUBIN,URINE NEGATIVE (NEGATIVE); COLOR,URINE YELLOW (YELLOW); LEUKOCYTE ESTERASE ,URINE NEGATIVE (NEGATIVE); NITRITE, URINE NEGATIVE (NEGATIVE); PROTEIN,URINE >=300 mg/dl (NEGATIVE); UGLUCOSE NEGATIVE (NEGATIVE); UROBILINOGEN,URINE 0.2 EU/dL (0.2)
[2021-08-09 14:19] LABS: ALCOHOL, BLOOD < 3 mg/dL (0-0)
[2021-08-09] MEDS ORDERED: IOHEXOL-300 100 ML VIAL IV ONE (14:19)
[2021-08-09 14:24] LABS: ALBUMIN 2.3 g/dL (3.4-5.0); CREATININE 1.6 mg/dL (0.6-1.3); POTASSIUM 4.5 mmol/L (3.5-5.1); TOTAL PROTEIN, SERUM 7.8 g/dL (6.4-8.2)
--- NOTE | 2021-08-09 14:53 | NUR ---
AWARE OF BLOOD PRESSURE
[2021-08-09 14:54] LABS: ACETAMINOPHEN 0 ug/ml (10-30); BACTERIA,URINE None seen /HPF (None Seen); SQUAMOUS EPITHELIAL CELL,UR Few /HPF (None Seen)
[2021-08-09 15:28] LABS: BILIRUBIN,DIRECT 0.1 mg/dL (0.0-0.2); BILIRUBIN,TOTAL 0.2 mg/dL (0.2-1.0)
--- NOTE | 2021-08-09 16:44 | NUR ---
AWARE OF BLOOD PRESSURE
--- NOTE | 2021-08-09 17:00 | NUR ---
EXPLAINED NOT TO TAKE METFORMIN 48 HOURS AFTER CONTRAST ADMINISTRATION. PATIENT VERBALIZED UNDERSTANDING. SIGNED INSTRUCTION FOR DIABETIC PATIENTS
--- NOTE | 2021-08-09 18:10 | NUR ---
IV removed. Catheter intact and site benign. Pressure and 4x4 applied to site. No bleeding noted.Patient discharged to home in stable condition. Written and verbal after care instructions given. Patient verbalizes understanding of instruction.
[2021-08-09 18:12] VITALS: BP 180/94
== END 2021-08-09 18:12 | disposition home or self-care (01) ==
LOC: ER 13:03
DX: R10.84 Generalized abdominal pain (principal); F20.0 Paranoid schizophrenia; E11.9 Type 2 diabetes mellitus without complications; I10 Essential (primary) hypertension; F17.200 Nicotine dependence, unspecified, uncomplicated; Z88.8 Allergy status to other drugs, medicaments and biological substances; Z59.00 Homelessness unspecified; Z79.84 Long term (current) use of oral hypoglycemic drugs; Z79.899 Other long term (current) drug therapy
CPT/HCPCS: 36415; 74177; 80048; 80076; 80143; 80307; 80320; 81001; 83690; 85025; 99285; Q9967; G0480

== ENCOUNTER 2024-11-22 12:22 | Inpatient (IN) | payer MEDICARE, OTHER ==
[~2024-11-22] VITALS: Ht 185.4 cm; Wt 97.1 kg
[~2024-11-22 12:22] MED LIST changes: +EPOE200011 SQ
[2024-11-22] MEDS: VANCOMYCIN 1 GM in IV D5W 250 ML IV ONE (12:30)
[2024-11-22] MEDS: CEFEPIME 1 GM in IV D5W 50 ML IV ONE (12:50)
[2024-11-22] MEDS: IV NS 0.9% 1,000 ML BAG IV ONE (12:50)
[2024-11-22 12:53] LABS: BASOPHILS # (AUTO) 0.1 K/uL (0.0-0.2); EOSINOPHILS # (AUTO) 0.2 K/uL (0.0-0.7); HEMOGLOBIN 8.2 g/dL (13.5-17.5); LYMPHOCYTES # (AUTO) 0.7 K/uL (0.8-4.8); NEUTROPHILS # (AUTO) 2.8 K/uL (1.8-8.9); WHITE BLOOD COUNT (AUTO) 4.2 K/uL (4.3-11.0)
[2024-11-22] MEDS ORDERED: ACETAMINOPHEN ES 500 MG TABLET ONE (12:54)
[2024-11-22 12:55] LABS: NEUTROPHILS % (AUTO) 67.5 % (43.0-81.0); PLATELET COUNT (AUTO) 199 K/uL (150-450)
[2024-11-22 12:58] LABS: BASOPHILS % (AUTO) 1.2 % (0.0-2.0); EOSINOPHILS % (AUTO) 4.2 % (0.0-6.0); HEMATOCRIT 26 % (39-51); LYMPHOCYTES % (AUTO) 15.7 % (20.0-44.0); MEAN CORPUSCULAR HEMOGLOBIN 29 PG (26.0-33.0); MEAN CORPUSCULAR HGB CONC 32 g/dl (31.0-36.0); MEAN CORPUSCULAR VOLUME 92 fL (80-96); MONOCYTES # (AUTO) 0.5 K/uL (0.1-1.30); MONOCYTES % (AUTO) 11.4 % (2.0-12.0); RED CELL DISTRIBUTION WIDTH 17.6 % (11.5-15.0)
[2024-11-22 13:00] LABS: APPEARANCE,URINE SLIGHTLY CLOUDY (CLEAR); BILIRUBIN,URINE Negative (NEGATIVE); BLOOD, URINE Trace-intact Ery/uL (NEGATIVE); COLOR,URINE YELLOW (YELLOW); KETONES,URINE Trace mg/dL (NEGATIVE); LEUKOCYTE ESTERASE ,URINE Small (NEGATIVE); PROTEIN,URINE >=300 mg/dl (NEGATIVE); UGLUCOSE Negative (NEGATIVE); UROBILINOGEN,URINE 0.2 EU/dL (0.2)
[2024-11-22 13:05] LABS: INR 0.96 (0.91-1.10); PARTIAL THROMBOPLASTIN TIME 34.1 SEC (24.3-34.3); PROTHROMBIN TIME 9.9 SECS (9.2-11.1)
[2024-11-22 13:08] LABS: LACTIC ACID 0.4 mmol/L (0.4-2.0)
[2024-11-22] MEDS: ACETAMINOPHEN ES 500 MG TABLET PO ONE (13:09)
[2024-11-22 13:13] LABS: CALCIUM, SERUM 8.9 mg/dL (8.5-10.1); CARBON DIOXIDE 32 mmol/L (21-32); CHLORIDE 104 mmol/L (98-107); CREATININE 3.1 mg/dL (0.6-1.3); GLUCOSE 80 mg/dL (74-106); POTASSIUM 5.6 mmol/L (3.5-5.1); SODIUM SERUM 137 mmol/L (136-145); UREA NITROGEN, BLOOD 24 mg/dL (7-18)
[2024-11-22 13:17] LABS: ALANINE AMINOTRANSFERASE 7 U/L (12-78); ALBUMIN 2.3 g/dL (3.4-5.0); ALKALINE PHOSPHATASE 83 U/L (46-116); ASPARTATE AMINOTRANSFERASE 17 U/L (15-37); BILIRUBIN,TOTAL 0.2 mg/dL (0.2-1.0); TOTAL PROTEIN, SERUM 7.7 g/dL (6.4-8.2)
[2024-11-22 13:18] LABS: BILIRUBIN,DIRECT 0.1 mg/dL (0.0-0.2)
[2024-11-22 13:24] LABS: NITRITE, URINE NEGATIVE (NEGATIVE)
[2024-11-22 13:25] LABS: ADD URINE CULTURE YES; BACTERIA,URINE Few /HPF (None Seen); SQUAMOUS EPITHELIAL CELL,UR Few /HPF (None Seen)
[2024-11-22] MEDS ORDERED: MAGNESIUM HYDROXIDE 30 ML UDC PO PRN ×2 (14:00→17:00)
[2024-11-22] MEDS ORDERED: Z GUARD REMEDY 4 OZ OINT TP PRN (14:00)
[2024-11-22] MEDS ORDERED: MAG HYDROX/AL HYDROX/SIMETH 30 ML UDC PO PRN (14:00)
[2024-11-22] MEDS ORDERED: ONDANSETRON HCL/PF 4 MG/2 ML VIAL IVP PRN (14:00)
[2024-11-22] MEDS: METOPROLOL TARTRATE 25 MG TABLET PO SCH (14:00)
[2024-11-22] MEDS ORDERED: CLONIDINE HCL 0.1 MG TABLET PO PRN ×2 (14:00→17:00)
[2024-11-22] MEDS ORDERED: ACET325T53 PO (14:28)
[2024-11-22] MEDS ORDERED: CLON0.1T PO (14:28)
[2024-11-22] MEDS ORDERED: HYDR100T27 PO (14:28)
[2024-11-22] MEDS ORDERED: MULT-213 PO (14:28)
[2024-11-22] MEDS ORDERED: ASPI-1420 PO (14:28)
[2024-11-22] MEDS ORDERED: AMLO-213 PO (14:28)
[2024-11-22] MEDS ORDERED: ALBU18HF2 IH (14:28)
[2024-11-22] MEDS ORDERED: ATOR40TA PO (14:28)
[2024-11-22] MEDS ORDERED: OLAN10TA3 PO (14:28)
[2024-11-22] MEDS ORDERED: SENN-261 PO (14:28)
[2024-11-22] MEDS ORDERED: ACET-73 PO (14:28)
[2024-11-22] MEDS ORDERED: LACT100C2 PO (14:28)
[2024-11-22] MEDS ORDERED: TAMS-12 PO (14:28)
[2024-11-22] MEDS ORDERED: HYDR-4303 PO (14:28)
[2024-11-22] MEDS ORDERED: TRAZ-182 PO (14:28)
[2024-11-22] MEDS ORDERED: DOXA1TAB2 PO (14:28)
[2024-11-22] MEDS ORDERED: ASCO500T10 PO (14:28)
[2024-11-22] MEDS ORDERED: BUME1TAB8 PO (14:28)
[2024-11-22] MEDS ORDERED: CALC-494 PO (14:28)
[2024-11-22] MEDS ORDERED: INSU100V39 SQ (14:28)
[2024-11-22] MEDS ORDERED: OMEP20CA15 PO (14:28)
[2024-11-22] MEDS ORDERED: ALLO100T PO (14:28)
[2024-11-22] MEDS ORDERED: CRAN300T PO (14:28)
[2024-11-22] MEDS ORDERED: DULO-79 PO (14:28)
[2024-11-22] MEDS ORDERED: DIVA-76 PO (14:28)
[2024-11-22] MEDS ORDERED: BISA10SU11 RC (14:28)
[2024-11-22] MEDS ORDERED: MAGN400O6 PO (14:28)
[2024-11-22] MEDS ORDERED: NICO-676 TD (14:28)
[2024-11-22] MEDS ORDERED: DOCU100C36 PO (14:28)
[2024-11-22] MEDS ORDERED: NA P133E RC (14:28)
[2024-11-22] MEDS ORDERED: SEVE800T8 PO (14:28)
[2024-11-22] MEDS ORDERED: FERR325T24 PO (14:28)
[2024-11-22] MEDS ORDERED: IPRA3AMP23 IH (14:28)
[2024-11-22 16:00] VITALS: BP 162/88; TEMP 97.7
[2024-11-22] MEDS: BLOOD SUGAR DIAGNOSTIC 1 EACH STRIP IN SCH (16:55)
[2024-11-22] MEDS: SODIUM ZIRCONIUM CYCLOSILICATE 10 GM POWD.PACK PO SCH (16:55)
[2024-11-22] MEDS ORDERED: METFORMIN 500 MG TABLET PO SCH (17:00)
[2024-11-22] MEDS ORDERED: DOXAZOSIN MESYLATE (1 MG) 1 MG TABLET PO SCH (17:00)
[2024-11-22] MEDS ORDERED: SENNOSIDES 8.6 MG TABLET PO PRN (17:00)
[2024-11-22] MEDS ORDERED: BISACODYL SUPP (10 MG) 10 MG/SUPP.RECT SUPP.RECT RC PRN (17:00)
[2024-11-22] MEDS ORDERED: LEVALBUTEROL HCL NEB 1.25 MG/0.5 ML VIAL.NEB NEB PRN (17:30)
[2024-11-22] MEDS: SEVELAMER CARBONATE 800 MG TABLET PO SCH (17:40)
[2024-11-22] MEDS: DOCUSATE SODIUM 100 MG CAPSULE PO SCH (17:40)
[2024-11-22] MEDS: DIVALPROEX SODIUM 250 MG TABLET.DR PO SCH (17:40)
[2024-11-22] MEDS: FERROUS SULFATE (325 MG) 325 MG/TAB TABLET PO SCH (17:40)
[2024-11-22] MEDS ORDERED: CEFTRIAXONE 1 G in IV D5W 50 ML IV SCH (18:00)
[2024-11-22 19:04] LABS: CALCIUM, SERUM 8.2 mg/dL (8.5-10.1); CREATININE 2.8 mg/dL (0.6-1.3); POTASSIUM 5.7 mmol/L (3.5-5.1)
[2024-11-22 20:00] VITALS: BP 150/83; TEMP 97.3
[2024-11-22] MEDS: CEFTRIAXONE 1 G in IV D5W 50 ML IV SCH (20:37)
[2024-11-22] MEDS: TAMSULOSIN 0.4 MG CAP.SR.24H PO SCH (21:54)
[2024-11-22] MEDS: ATORVASTATIN 40 MG TABLET PO SCH (21:55)
[2024-11-22] MEDS: DOXAZOSIN MESYLATE (1 MG) 1 MG TABLET PO SCH (21:56)
[2024-11-23] VITALS: BP 136/77; TEMP 98.1; O2SAT 98
[2024-11-23 04:00] VITALS: BP 150/89; TEMP 97.2; O2SAT 93
[2024-11-23 07:10] LABS: BASOPHILS # (AUTO) 0.1 K/uL (0.0-0.2); BASOPHILS % (AUTO) 1.1 % (0.0-2.0); EOSINOPHILS # (AUTO) 0.1 K/uL (0.0-0.7); EOSINOPHILS % (AUTO) 2.7 % (0.0-6.0); HEMATOCRIT 26 % (39-51); LYMPHOCYTES # (AUTO) 0.6 K/uL (0.8-4.8); LYMPHOCYTES % (AUTO) 10.5 % (20.0-44.0); MEAN CORPUSCULAR HEMOGLOBIN 29 PG (26.0-33.0); MEAN CORPUSCULAR HGB CONC 31 g/dl (31.0-36.0); MEAN CORPUSCULAR VOLUME 93 fL (80-96); MONOCYTES # (AUTO) 0.6 K/uL (0.1-1.30); MONOCYTES % (AUTO) 11.2 % (2.0-12.0); NEUTROPHILS # (AUTO) 3.9 K/uL (1.8-8.9); NEUTROPHILS % (AUTO) 74.5 % (43.0-81.0); PLATELET COUNT (AUTO) 207 K/uL (150-450); RED BLOOD CELL COUNT(AUTO) 2.76 MIL/uL (4.5-6.0); RED CELL DISTRIBUTION WIDTH 17.7 % (11.5-15.0); WHITE BLOOD COUNT (AUTO) 5.3 K/uL (4.3-11.0)
[2024-11-23 07:26] LABS: ALBUMIN 2.4 g/dL (3.4-5.0); BILIRUBIN,TOTAL 0.3 mg/dL (0.2-1.0); CALCIUM, SERUM 8.3 mg/dL (8.5-10.1); CREATININE 2.8 mg/dL (0.6-1.3); MAGNESIUM 1.9 mg/dL (1.8-2.4); PHOSPHORUS 4.8 mg/dL (2.5-4.9); POTASSIUM 5.5 mmol/L (3.5-5.1); TOTAL PROTEIN, SERUM 7.4 g/dL (6.4-8.2)
[2024-11-23] MEDS: OLANZAPINE 10 MG TABLET PO SCH (08:48)
[2024-11-23] MEDS: ARIPIPRAZOLE 5 MG TABLET PO SCH (08:49)
[2024-11-23] MEDS: ASPIRIN EC 81 MG TABLET.DR PO SCH (08:49)
[2024-11-23] MEDS: ALLOPURINOL 100 MG TABLET PO SCH (08:49)
[2024-11-23] MEDS: ASCORBIC ACID 500 MG TABLET PO SCH (08:50)
[2024-11-23] MEDS: AMLODIPINE BESYLATE 10 MG TABLET PO SCH (08:50)
[2024-11-23] MEDS: IV NS 0.9% 1,000 ML IV PRN (08:55)
[2024-11-23] MEDS: SODIUM ZIRCONIUM CYCLOSILICATE 10 GM POWD.PACK PO SCH (09:33)
[2024-11-23 12:00] VITALS: BP 154/84; TEMP 97.5; O2SAT 93
[2024-11-23 15:23] LABS: CALCIUM, SERUM 8.4 mg/dL (8.5-10.1); CREATININE 2.9 mg/dL (0.6-1.3); POTASSIUM 4.8 mmol/L (3.5-5.1)
[2024-11-23 16:00] VITALS: BP 151/85; TEMP 97.9; O2SAT 95
[2024-11-23 20:00] VITALS: BP 158/87; TEMP 99.1; O2SAT 99
[2024-11-23] MEDS: INSULIN REGULAR, HUMAN 100 UNIT/ML 3 ML VIAL SQ PRN (22:10)
[2024-11-24] VITALS: BP 154/83; TEMP 97.5; O2SAT 95
[2024-11-24 04:00] VITALS: BP 145/75; TEMP 98.6; O2SAT 94
[2024-11-24 06:07] LABS: PTH, INTACT 59 pg/mL (15-65)
[2024-11-24 07:24] LABS: BASOPHILS # (AUTO) 0.1 K/uL (0.0-0.2); BASOPHILS % (AUTO) 0.6 % (0.0-2.0); EOSINOPHILS # (AUTO) 0.2 K/uL (0.0-0.7); EOSINOPHILS % (AUTO) 1.8 % (0.0-6.0); HEMATOCRIT 28 % (39-51); HEMOGLOBIN 8.8 g/dL (13.5-17.5); LYMPHOCYTES # (AUTO) 0.6 K/uL (0.8-4.8); LYMPHOCYTES % (AUTO) 5.6 % (20.0-44.0); MEAN CORPUSCULAR HEMOGLOBIN 29 PG (26.0-33.0); MEAN CORPUSCULAR HGB CONC 32 g/dl (31.0-36.0); MEAN CORPUSCULAR VOLUME 93 fL (80-96); MONOCYTES # (AUTO) 0.7 K/uL (0.1-1.30); MONOCYTES % (AUTO) 7.5 % (2.0-12.0); NEUTROPHILS # (AUTO) 8.4 K/uL (1.8-8.9); NEUTROPHILS % (AUTO) 84.5 % (43.0-81.0); PLATELET COUNT (AUTO) 192 K/uL (150-450); RED BLOOD CELL COUNT(AUTO) 2.99 MIL/uL (4.5-6.0); RED CELL DISTRIBUTION WIDTH 17.7 % (11.5-15.0)
[2024-11-24 07:56] LABS: ALANINE AMINOTRANSFERASE < 6 U/L (12-78); ALBUMIN 2.2 g/dL (3.4-5.0); ALKALINE PHOSPHATASE 82 U/L (46-116); ASPARTATE AMINOTRANSFERASE 14 U/L (15-37); BILIRUBIN,TOTAL 0.3 mg/dL (0.2-1.0); CARBON DIOXIDE 33 mmol/L (21-32); CHLORIDE 106 mmol/L (98-107); CREATININE 2.8 mg/dL (0.6-1.3); GLUCOSE 78 mg/dL (74-106); MAGNESIUM 1.8 mg/dL (1.8-2.4); PHOSPHORUS 4.4 mg/dL (2.5-4.9); POTASSIUM 4.6 mmol/L (3.5-5.1); SODIUM SERUM 141 mmol/L (136-145); TOTAL PROTEIN, SERUM 7.1 g/dL (6.4-8.2); UREA NITROGEN, BLOOD 23 mg/dL (7-18)
[2024-11-24 08:00] VITALS: BP 145/75; TEMP 98.1; O2SAT 94
[2024-11-24 08:53] LABS: CALCIUM, SERUM 8.4 mg/dL (8.5-10.1)
[2024-11-24 12:00] VITALS: BP 143/83; TEMP 97.3; O2SAT 95
[2024-11-24 16:00] VITALS: BP 149/82; TEMP 97.3; O2SAT 98
[2024-11-24 20:00] VITALS: BP 156/86; TEMP 97.5; O2SAT 94
[2024-11-25] VITALS (14 sets, daily range): BP systolic 114–165; BP diastolic 63–86; TEMP 96.3–98; O2SAT 93–100
[2024-11-25 07:32] LABS: CALCIUM, SERUM 8.5 mg/dL (8.5-10.1); CREATININE 2.9 mg/dL (0.6-1.3); MAGNESIUM 1.7 mg/dL (1.8-2.4); PHOSPHORUS 4.5 mg/dL (2.5-4.9); POTASSIUM 4.2 mmol/L (3.5-5.1)
[2024-11-25 07:46] LABS: BASOPHILS % (AUTO) 0.5 % (0.0-2.0); EOSINOPHILS # (AUTO) 0.2 K/uL (0.0-0.7); HEMATOCRIT 27 % (39-51); HEMOGLOBIN 8.7 g/dL (13.5-17.5); LYMPHOCYTES # (AUTO) 0.5 K/uL (0.8-4.8); LYMPHOCYTES % (AUTO) 7.2 % (20.0-44.0); MEAN CORPUSCULAR HEMOGLOBIN 30 PG (26.0-33.0); MEAN CORPUSCULAR HGB CONC 32 g/dl (31.0-36.0); MEAN CORPUSCULAR VOLUME 93 fL (80-96); MONOCYTES # (AUTO) 0.5 K/uL (0.1-1.30); MONOCYTES % (AUTO) 7.5 % (2.0-12.0); NEUTROPHILS # (AUTO) 5.5 K/uL (1.8-8.9); NEUTROPHILS % (AUTO) 81.8 % (43.0-81.0); PLATELET COUNT (AUTO) 212 K/uL (150-450); RED BLOOD CELL COUNT(AUTO) 2.95 MIL/uL (4.5-6.0); RED CELL DISTRIBUTION WIDTH 17.9 % (11.5-15.0); WHITE BLOOD COUNT (AUTO) 6.7 K/uL (4.3-11.0)
[2024-11-25 11:30] LABS: COHb 0.3 % (0.5-1.5); MetHb 0.4 % (0.0-1.5); SITE, ABG RIGHT RADIAL
[2024-11-25] MEDS: ACETYLCYSTEINE 10% SOLN 400 MG/4 ML VIAL NEB SCH (12:00)
[2024-11-25] MEDS: COLCHICINE 0.6 MG TABLET PO SCH (12:14)
[2024-11-25] MEDS: Magnesium 1GM/D5W 100ML PREMIX 100 ML IV SCH (12:14)
[2024-11-25 12:28] LABS: ABG BASE EXCESS 0.1 mmol/L (-2.0-3.0); ABG OXYGEN SATURATION 91.1 % (94.0-98.0); ABG PH 7.155 (7.350-7.450); ABG PO2 67.6 mmHg (83.0-108.0); ABG TOTAL HEMOGLOBIN 9.2 G/dL (13.5-17.5); COHb 0.3 % (0.5-1.5); MetHb 0.3 % (0.0-1.5); O2Hb 90.6 % (94.0-97.0)
[2024-11-25] MEDS ORDERED: FUROSEMIDE 40 MG/4 ML VIAL IV SCH (14:00)
[2024-11-25 14:11] LABS: *SPE A/G RATIO 0.7 (0.7-1.7); *SPE ALBUMIN 2.7 g/dL (2.9-4.4); *SPE ALPHA-1-GLOBULIN 0.3 g/dL (0.0-0.4); *SPE ALPHA-2-GLOBULIN 0.7 g/dL (0.4-1.0); *SPE BETA GLOBULIN 1.1 g/dL (0.7-1.3); *SPE GLOBULIN, TOTAL 3.7 g/dL (2.2-3.9); *SPE M-SPIKE Not Observed g/dL (Not Observed); *SPE PROTEIN TOTAL 6.4 g/dL (6.0-8.5); *SPEGAMMA GLOBULIN 1.7 g/dL (0.4-1.8)
[2024-11-25 14:20] LABS: ABG BASE EXCESS 0.6 mmol/L (-2.0-3.0); ABG OXYGEN SATURATION 93.8 % (94.0-98.0); ABG PCO2 75.7 mmHg (35.0-48.0); ABG PH 7.207 (7.350-7.450); ABG PO2 73.6 mmHg (83.0-108.0); ABG TOTAL HEMOGLOBIN 8.9 G/dL (13.5-17.5); COHb 0.3 % (0.5-1.5); MetHb 0.3 % (0.0-1.5); O2Hb 93.2 % (94.0-97.0); SITE, ABG RIGHT RADIAL
[2024-11-25 16:27] LABS: ABG OXYGEN SATURATION 92.8 % (94.0-98.0); ABG PH 7.221 (7.350-7.450); ABG PO2 67.1 mmHg (83.0-108.0); ABG TOTAL HEMOGLOBIN 9.2 G/dL (13.5-17.5); COHb 0.1 % (0.5-1.5); MetHb 0.5 % (0.0-1.5); O2Hb 92.2 % (94.0-97.0); SITE, ABG RIGHT RADIAL
[2024-11-25] MEDS: IPRATROPIUM NEB FS 0.5 MG/2.5 ML AMPUL.NEB NEB PRN (23:38)
[2024-11-26] VITALS (29 sets, daily range): BP systolic 111–159; BP diastolic 59–90; TEMP 98; O2SAT 94–100
[2024-11-26 04:55] LABS: BASOPHILS % (AUTO) 0.6 % (0.0-2.0); EOSINOPHILS # (AUTO) 0.2 K/uL (0.0-0.7); EOSINOPHILS % (AUTO) 2.9 % (0.0-6.0); HEMATOCRIT 23 % (39-51); HEMOGLOBIN 7.4 g/dL (13.5-17.5); LYMPHOCYTES # (AUTO) 0.6 K/uL (0.8-4.8); LYMPHOCYTES % (AUTO) 8.3 % (20.0-44.0); MEAN CORPUSCULAR HEMOGLOBIN 29 PG (26.0-33.0); MEAN CORPUSCULAR HGB CONC 32 g/dl (31.0-36.0); MEAN CORPUSCULAR VOLUME 90 fL (80-96); MONOCYTES # (AUTO) 0.6 K/uL (0.1-1.30); MONOCYTES % (AUTO) 9.3 % (2.0-12.0); NEUTROPHILS # (AUTO) 5.3 K/uL (1.8-8.9); NEUTROPHILS % (AUTO) 78.9 % (43.0-81.0); PLATELET COUNT (AUTO) 205 K/uL (150-450); RED BLOOD CELL COUNT(AUTO) 2.55 MIL/uL (4.5-6.0); RED CELL DISTRIBUTION WIDTH 17.8 % (11.5-15.0); WHITE BLOOD COUNT (AUTO) 6.7 K/uL (4.3-11.0)
[2024-11-26 05:00] LABS: CALCIUM, SERUM 8.2 mg/dL (8.5-10.1); CREATININE 2.8 mg/dL (0.6-1.3); MAGNESIUM 1.9 mg/dL (1.8-2.4); PHOSPHORUS 3.9 mg/dL (2.5-4.9)
[2024-11-26 05:08] LABS: INR 1.1 (0.91-1.10); PROTHROMBIN TIME 11.6 SECS (9.2-11.1)
[2024-11-26] MEDS: DEXTROSE 50%-WATER 50 ML DISP.SYRIN IV PRN (05:43)
[2024-11-26 09:40] LABS: ABG BASE EXCESS 2.7 mmol/L (-2.0-3.0); ABG PH 7.305 (7.350-7.450); ABG PO2 73.2 mmHg (83.0-108.0); ABG TOTAL HEMOGLOBIN 8.2 G/dL (13.5-17.5); COHb 0.3 % (0.5-1.5); MetHb 0.4 % (0.0-1.5); O2Hb 93.3 % (94.0-97.0); SITE, ABG RIGHT RADIAL
[2024-11-26 11:36] LABS: IRON, SERUM 35 ug/dl (50-175); TOTAL IRON BINDING CAPACITY 140 ug/dl (250-450)
[2024-11-26] MEDS: CEFEPIME 2 GM in IV D5W 100 ML IV SCH (12:37)
[2024-11-26] MEDS: FUROSEMIDE 20 MG/2 ML VIAL IV SCH (12:37)
[2024-11-26] MEDS ORDERED: HALOPERIDOL 1 MG TABLET PO PRN (14:00)
[2024-11-26 17:25] LABS: PROTEIN, BODY FLUID 2.6 G/DL
[2024-11-26 19:00] LABS: APPEARANCE,URINE CLEAR (CLEAR); BILIRUBIN,URINE NEGATIVE (NEGATIVE); BLOOD, URINE 2+ Ery/uL (NEGATIVE); COLOR,URINE YELLOW (YELLOW); KETONES,URINE NEGATIVE (NEGATIVE); LEUKOCYTE ESTERASE ,URINE TRACE (NEGATIVE); NITRITE, URINE NEGATIVE (NEGATIVE); PROTEIN,URINE 2+ mg/dl (NEGATIVE); UGLUCOSE NEGATIVE (NEGATIVE); UROBILINOGEN,URINE 0.2 EU/dL (0.2)
[2024-11-26 19:07] LABS: ADD URINE CULTURE YES; BACTERIA,URINE 1+ /HPF (None Seen); RBC,URINE 21-50 /HPF (0-2)
[2024-11-26 19:26] LABS: APPEARANCE,SPUN,BODY FLUID CLEAR (CLEAR)
[2024-11-26 19:27] LABS: TOTAL VOLUME,BODY FLUID 1200 mL
[2024-11-27] VITALS (21 sets, daily range): BP systolic 111–155; BP diastolic 55–89; TEMP 97.9–98; O2SAT 95–100
[2024-11-27 00:09] LABS: MONOCYTES,BODY FLUID 22 %
[2024-11-27 04:42] LABS: BASOPHILS % (AUTO) 0.6 % (0.0-2.0); EOSINOPHILS # (AUTO) 0.2 K/uL (0.0-0.7); HEMATOCRIT 24 % (39-51); HEMOGLOBIN 7.5 g/dL (13.5-17.5); LYMPHOCYTES # (AUTO) 0.7 K/uL (0.8-4.8); LYMPHOCYTES % (AUTO) 8.7 % (20.0-44.0); MEAN CORPUSCULAR HEMOGLOBIN 29 PG (26.0-33.0); MEAN CORPUSCULAR HGB CONC 31 g/dl (31.0-36.0); MEAN CORPUSCULAR VOLUME 91 fL (80-96); MONOCYTES # (AUTO) 0.7 K/uL (0.1-1.30); MONOCYTES % (AUTO) 9.4 % (2.0-12.0); NEUTROPHILS # (AUTO) 6.2 K/uL (1.8-8.9); NEUTROPHILS % (AUTO) 79.3 % (43.0-81.0); PLATELET COUNT (AUTO) 221 K/uL (150-450); RED BLOOD CELL COUNT(AUTO) 2.64 MIL/uL (4.5-6.0); RED CELL DISTRIBUTION WIDTH 17.7 % (11.5-15.0); WHITE BLOOD COUNT (AUTO) 7.9 K/uL (4.3-11.0)
[2024-11-27 05:00] LABS: CALCIUM, SERUM 8.1 mg/dL (8.5-10.1); CREATININE 2.6 mg/dL (0.6-1.3); MAGNESIUM 1.8 mg/dL (1.8-2.4); POTASSIUM 3.7 mmol/L (3.5-5.1)
[2024-11-27 08:58] LABS: ABG BASE EXCESS 4.6 mmol/L (-2.0-3.0); ABG OXYGEN SATURATION 95.7 % (94.0-98.0); ABG PCO2 58.2 mmHg (35.0-48.0); ABG PH 7.346 (7.350-7.450); ABG PO2 81.2 mmHg (83.0-108.0); ABG TOTAL HEMOGLOBIN 8.8 G/dL (13.5-17.5); COHb 0.3 % (0.5-1.5); MetHb 0.5 % (0.0-1.5); O2Hb 94.9 % (94.0-97.0); SITE, ABG LEFT BRACHIAL
[2024-11-27] MEDS: FUROSEMIDE 20 MG/2 ML VIAL IV SCH (16:46)
[2024-11-28] VITALS (10 sets, daily range): BP systolic 127–145; BP diastolic 63–81; TEMP 97.8–98.2; O2SAT 92–100
[2024-11-28 07:15] LABS: BASOPHILS % (AUTO) 0.5 % (0.0-2.0); EOSINOPHILS # (AUTO) 0.3 K/uL (0.0-0.7); EOSINOPHILS % (AUTO) 3.4 % (0.0-6.0); HEMATOCRIT 25 % (39-51); LYMPHOCYTES # (AUTO) 0.7 K/uL (0.8-4.8); LYMPHOCYTES % (AUTO) 8.7 % (20.0-44.0); MEAN CORPUSCULAR HEMOGLOBIN 29 PG (26.0-33.0); MEAN CORPUSCULAR HGB CONC 32 g/dl (31.0-36.0); MEAN CORPUSCULAR VOLUME 90 fL (80-96); MONOCYTES # (AUTO) 0.8 K/uL (0.1-1.30); MONOCYTES % (AUTO) 10.5 % (2.0-12.0); NEUTROPHILS # (AUTO) 6.1 K/uL (1.8-8.9); NEUTROPHILS % (AUTO) 76.9 % (43.0-81.0); PLATELET COUNT (AUTO) 246 K/uL (150-450); RED BLOOD CELL COUNT(AUTO) 2.78 MIL/uL (4.5-6.0); RED CELL DISTRIBUTION WIDTH 17.9 % (11.5-15.0); WHITE BLOOD COUNT (AUTO) 7.9 K/uL (4.3-11.0)
[2024-11-28 07:24] LABS: CALCIUM, SERUM 8.3 mg/dL (8.5-10.1); CREATININE 2.6 mg/dL (0.6-1.3); MAGNESIUM 1.7 mg/dL (1.8-2.4); PHOSPHORUS 3.1 mg/dL (2.5-4.9); POTASSIUM 3.8 mmol/L (3.5-5.1)
[2024-11-28] MEDS: Magnesium 1GM/D5W 100ML PREMIX 100 ML IV SCH (11:13)
[2024-11-28 11:33] LABS: ABG BASE EXCESS 1.5 mmol/L (-2.0-3.0); ABG OXYGEN SATURATION 71.9 % (94.0-98.0); ABG PCO2 71.1 mmHg (35.0-48.0); ABG PH 7.241 (7.350-7.450); ABG PO2 35.2 mmHg (83.0-108.0); ABG TOTAL HEMOGLOBIN 9.1 G/dL (13.5-17.5); O2Hb 71.4 % (94.0-97.0)
[2024-11-29] VITALS (8 sets, daily range): BP systolic 121–138; BP diastolic 64–77; TEMP 97.7–98.2; O2SAT 93–98
[2024-11-29] MEDS: ACETAMINOPHEN 325 MG TABLET PO PRN (02:59)
[2024-11-29 07:12] LABS: BASOPHILS % (AUTO) 0.6 % (0.0-2.0); EOSINOPHILS # (AUTO) 0.4 K/uL (0.0-0.7); EOSINOPHILS % (AUTO) 4.9 % (0.0-6.0); HEMATOCRIT 25 % (39-51); HEMOGLOBIN 8.1 g/dL (13.5-17.5); LYMPHOCYTES # (AUTO) 0.8 K/uL (0.8-4.8); MEAN CORPUSCULAR HEMOGLOBIN 29 PG (26.0-33.0); MEAN CORPUSCULAR HGB CONC 32 g/dl (31.0-36.0); MEAN CORPUSCULAR VOLUME 91 fL (80-96); NEUTROPHILS # (AUTO) 6.7 K/uL (1.8-8.9); NEUTROPHILS % (AUTO) 74.5 % (43.0-81.0); PLATELET COUNT (AUTO) 243 K/uL (150-450); RED BLOOD CELL COUNT(AUTO) 2.81 MIL/uL (4.5-6.0); RED CELL DISTRIBUTION WIDTH 18.5 % (11.5-15.0)
[2024-11-29 07:32] LABS: CALCIUM, SERUM 8.3 mg/dL (8.5-10.1); CREATININE 2.6 mg/dL (0.6-1.3); MAGNESIUM 1.9 mg/dL (1.8-2.4); POTASSIUM 3.8 mmol/L (3.5-5.1)
[2024-11-30] VITALS (9 sets, daily range): BP systolic 128–140; BP diastolic 68–83; TEMP 97.4–97.7; O2SAT 95–99
[2024-11-30] MEDS ORDERED: COLC0.6T67 PO (15:59)
[2024-11-30] MEDS ORDERED: FURO-144 PO (15:59)
[2024-11-30] MEDS ORDERED: LEVO500T90 PO (16:06)
[2024-12-01] MEDS ORDERED: FUROSEMIDE 40 MG TABLET PO SCH (09:00)
== END 2024-11-30 18:45 | DRG 698 ==
LOC: ER 12:27 → TELE1 14:06 → ICU 11-25 12:55 → TELE-TD 11-27 19:06 → TELE1 11-28 09:42
PROVIDERS: ADMIT Nurse Practitioner Acute Care; ATTEND Nurse Practitioner Family
PROC: 5A09357 Assistance with Respiratory Ventilation, Less than 24 Consecutive Hours, Continuous Positive Airway Pressure (ICD-10-PCS; 2024-11-25)
PROC: 0W9B3ZZ Drainage of Left Pleural Cavity, Percutaneous Approach (ICD-10-PCS; principal; 2024-11-28)
DX: T83.511A Infection and inflammatory reaction due to indwelling urethral catheter, initial encounter (principal); I21.A1 Myocardial infarction type 2; J15.69 Pneumonia due to other Gram-negative bacteria; I50.33 Acute on chronic diastolic (congestive) heart failure; J96.21 Acute and chronic respiratory failure with hypoxia; I13.0 Hypertensive heart and chronic kidney disease with heart failure and stage 1 through stage 4 chronic kidney disease, or unspecified chronic kidney disease; N17.9 Acute kidney failure, unspecified; Z59.00 Homelessness unspecified; E66.2 Morbid (severe) obesity with alveolar hypoventilation; I31.39 Other pericardial effusion (noninflammatory); J98.11 Atelectasis; G93.49 Other encephalopathy; F20.0 Paranoid schizophrenia; E87.29 Other acidosis; J90 Pleural effusion, not elsewhere classified; N39.0 Urinary tract infection, site not specified; E11.22 Type 2 diabetes mellitus with diabetic chronic kidney disease; N18.9 Chronic kidney disease, unspecified; B96.5 Pseudomonas (aeruginosa) (mallei) (pseudomallei) as the cause of diseases classified elsewhere; D64.9 Anemia, unspecified; D72.819 Decreased white blood cell count, unspecified; E66.9 Obesity, unspecified; Z91.199 Patient's noncompliance with other medical treatment and regimen due to unspecified reason; Z79.84 Long term (current) use of oral hypoglycemic drugs; K59.00 Constipation, unspecified; M10.9 Gout, unspecified; N40.1 Benign prostatic hyperplasia with lower urinary tract symptoms; E86.9 Volume depletion, unspecified; E83.9 Disorder of mineral metabolism, unspecified; F20.9 Schizophrenia, unspecified; E87.5 Hyperkalemia; Z71.3 Dietary counseling and surveillance; I07.1 Rheumatic tricuspid insufficiency; R33.8 Other retention of urine; F17.210 Nicotine dependence, cigarettes, uncomplicated; Z99.81 Dependence on supplemental oxygen; Y84.6 Urinary catheterization as the cause of abnormal reaction of the patient, or of later complication, without mention of misadventure at the time of the procedure; Y73.8 Miscellaneous gastroenterology and urology devices associated with adverse incidents, not elsewhere classified; Y92.129 Unspecified place in nursing home as the place of occurrence of the external cause
CPT/HCPCS: 36415; 36600; 71045-TC; 71250-TC; 76770-TC; 80048-TC; 80053-TC; 80076-TC; 81001; 82550-TC; 82607-TC; 82803-TC; 82962-TC; 83540-TC; 83605-TC; 83735-TC; 83880; 83970; 84100-TC; 84155; 84165; 84484-TC; 85025-TC; 85610-TC; 85652-TC; 85730-TC; 87040-TC; 87070-TC; 87086-TC; 87102-TC; 87186-TC; 88108-TC; 88305-TC; 88312-TC; 88313-TC; 88341; 88342; 89051-TC; 93307-TC; 93308-TC; 93970-TC; 94761-TC; 94799-TC; 99082-TC; A4223; A4624; G0378; J0692; J0696; J1815; J1938; J3370; J3475; J7030; J7040; J7042; J7050; J7060

== ENCOUNTER 2024-12-06 14:30 | Inpatient (IN) | payer MEDICARE, OTHER ==
[2024-12-06] VITALS (7 sets, daily range): BP systolic 97–128; BP diastolic 57–71; TEMP 97.3–97.6; O2SAT 97–99
[~2024-12-06] VITALS: Ht 172.7 cm; Wt 107.0 kg
[~2024-12-06 14:30] MED LIST changes: +ACET-73 PO; +ACET325T53 PO; +ALBU18HF2 IH; +ALLO100T PO; +AMLO-213 PO; -ARIP5TAB10 PO; +ASCO500T10 PO; +ASPI-1420 PO; +ATOR40TA PO; +BISA10SU11 RC; +CALC-494 PO; +CLON0.1T PO; +COLC0.6T67 PO; +CRAN300T PO; +DIVA-76 PO; +DOCU100C36 PO; +DOXA1TAB2 PO; +DULO-79 PO; +FERR325T24 PO; +FURO-144 PO; +HYDR-4303 PO; +HYDR100T27 PO; +INSU100V39 SQ; +IPRA3AMP23 IH; +LACT100C2 PO; +LEVO500T90 PO; +MAGN400O6 PO; -METF-440 PO; +MULT-213 PO; +NA P133E RC; +NICO-676 TD; +OLAN10TA3 PO; +OMEP20CA15 PO; +SENN-261 PO; +SEVE800T8 PO; +TAMS-12 PO; +TRAZ-182 PO
[2024-12-06 15:32] LABS: PLATELET COUNT (AUTO) 301 K/uL (150-450); RED BLOOD CELL COUNT(AUTO) 2.93 MIL/uL (4.5-6.0); RED CELL DISTRIBUTION WIDTH 19.8 % (11.5-15.0)
[2024-12-06 15:39] LABS: WHITE BLOOD COUNT (AUTO) 33.8 K/uL (4.3-11.0)
[2024-12-06] MEDS ORDERED: PIPERACI/TAZO 3.375GM/D5W 50ML PB IV ONE (15:41)
[2024-12-06 15:44] LABS: CALCIUM, SERUM 8.5 mg/dL (8.5-10.1); CREATININE 4.0 mg/dL (0.6-1.3); SODIUM SERUM 134 mmol/L (136-145); UREA NITROGEN, BLOOD 55 mg/dL (7-18)
[2024-12-06] MEDS ORDERED: AMIN30LI66 PO (15:45)
[2024-12-06] MEDS ORDERED: BUME1TAB34 PO (15:45)
[2024-12-06] MEDS ORDERED: ZINC1CAP2 PO (15:45)
[2024-12-06] MEDS: PIPERACILLIN /TAZOBACTAM 3.375 G in IV D5W 50 ML IV ONE (15:45)
[2024-12-06] MEDS ORDERED: METRONIDAZOLE 500MG/ NS 100ML 100 ML IV ONE (15:56)
[2024-12-06 15:57] LABS: LACTIC ACID 0.7 mmol/L (0.4-2.0)
[2024-12-06 15:57] LABS: ABG BASE EXCESS -0.2 mmol/L (-2.0-3.0); ABG OXYGEN SATURATION 96.9 % (94.0-98.0); ABG PCO2 60.6 mmHg (35.0-48.0); ABG PH 7.271 (7.350-7.450); ABG PO2 96.3 mmHg (83.0-108.0); ABG TOTAL HEMOGLOBIN 9.4 G/dL (13.5-17.5); FLOW, BLOOD GAS 3.00 L/min (0.00-30.00); FRACTIONATED INSPIRED OXYGEN 32.0 %; SITE, ABG RIGHT RADIAL
[2024-12-06 15:59] LABS: ASPARTATE AMINOTRANSFERASE 17 U/L (15-37); TOTAL PROTEIN, SERUM 6.1 g/dL (6.4-8.2)
[2024-12-06] MEDS: FLAGYL/NS RTU 500 MG/100 ML PIGGYBACK IV ONE (16:00)
[2024-12-06 16:09] LABS: BAND % (MANUAL) 5 % (0.0-5.0); LYMPHOCYTES % (MANUAL) 19 % (16-48); NEUTROPHILS % (MANUAL) 76 (42-76); PLATELET ESTIMATE ADEQUATE
[2024-12-06] MEDS ORDERED: DOSING PER PHARMACY-ZOSYN IV 1 EA EA XX PRN (17:00)
[2024-12-06] MEDS ORDERED: VANCOMYCIN 1 GM /D5W 250 ML PB IV ONE (17:03)
[2024-12-06] MEDS: VANCOMYCIN 1 GM in IV D5W 250 ML IV ONE (17:05)
[2024-12-06] MEDS: SEVELAMER CARBONATE 800 MG TABLET PO SCH (18:00)
[2024-12-06] MEDS: DOCUSATE SODIUM 100 MG CAPSULE PO SCH (18:26)
[2024-12-06] MEDS: FERROUS SULFATE (325 MG) 325 MG/TAB TABLET PO SCH (18:26)
[2024-12-06] MEDS: DIVALPROEX SODIUM 250 MG TABLET.DR PO SCH (18:27)
[2024-12-06] MEDS: DOXAZOSIN MESYLATE (1 MG) 1 MG TABLET PO SCH (18:27)
[2024-12-06] MEDS: BLOOD SUGAR DIAGNOSTIC 1 EACH STRIP IN SCH (18:31)
[2024-12-06] MEDS: IV NS 0.9% 1,000 ML IV PRN (18:34)
[2024-12-06] MEDS: HEPARIN SODIUM, PORCINE 5000 UNITS/1 ML VIAL SQ SCH (18:59)
[2024-12-06] MEDS: ZOSYN IVPB 2.25 G in IV D5W 50ml IV SCH (20:38)
[2024-12-06] MEDS: VANCOMYCIN HCL 125 MG/2.5 ML ORAL.SUSP PO SCH (20:38)
[2024-12-06] MEDS: METRONIDAZOLE 500 MG TABLET PO SCH (21:13)
[2024-12-06] MEDS: TAMSULOSIN 0.4 MG CAP.SR.24H PO SCH (22:31)
[2024-12-06] MEDS: ATORVASTATIN 40 MG TABLET PO SCH (22:32)
[2024-12-07] VITALS (24 sets, daily range): BP systolic 82–133; BP diastolic 45–83; TEMP 97.3–97.9; O2SAT 91–99
[2024-12-07 04:44] LABS: PLATELET COUNT (AUTO) 324 K/uL (150-450); RED BLOOD CELL COUNT(AUTO) 2.88 MIL/uL (4.5-6.0); RED CELL DISTRIBUTION WIDTH 19.4 % (11.5-15.0)
[2024-12-07 04:57] LABS: WHITE BLOOD COUNT (AUTO) 32.1 K/uL (4.3-11.0)
[2024-12-07 05:08] LABS: CALCIUM, SERUM 8.5 mg/dL (8.5-10.1); CREATININE 4.4 mg/dL (0.6-1.3); PHOSPHORUS 4.2 mg/dL (2.5-4.9); SODIUM SERUM 138.0 mmol/L (136-145); UREA NITROGEN, BLOOD 56.0 mg/dL (7-18)
[2024-12-07 05:32] LABS: ABG BASE EXCESS -0.1 mmol/L (-2.0-3.0); ABG OXYGEN SATURATION 95.9 % (94.0-98.0); ABG PCO2 67.5 mmHg (35.0-48.0); ABG PH 7.237 (7.350-7.450); ABG PO2 86.0 mmHg (83.0-108.0); ABG TOTAL HEMOGLOBIN 9.3 G/dL (13.5-17.5); FRACTIONATED INSPIRED OXYGEN 35.0 %; SET RATE, BG 20.0; SITE, ABG RIGHT BRACHIAL
[2024-12-07 05:35] LABS: BAND % (MANUAL) 1 % (0.0-5.0); BASOPHILS % (MANUAL) 0 % (0.0-2.0); EOSINOPHILS % (MANUAL) 0 % (0-4); LYMPHOCYTES % (MANUAL) 4 % (16-48); MONOCYTES % (MANUAL) 8 % (0-11.0); NEUTROPHILS % (MANUAL) 87 (42-76); PLATELET ESTIMATE ADEQUATE
[2024-12-07] MEDS: AMLODIPINE BESYLATE 10 MG TABLET PO SCH (08:11)
[2024-12-07] MEDS: MULTIVIT W/MINERALS 1 TAB TABLET PO SCH (08:44)
[2024-12-07] MEDS: ZINC SULFATE 220 MG CAPSULE PO SCH (08:44)
[2024-12-07] MEDS: ASCORBIC ACID 500 MG TABLET PO SCH (08:44)
[2024-12-07] MEDS: ASPIRIN EC 81 MG TABLET.DR PO SCH (08:44)
[2024-12-07] MEDS: PANTOPRAZOLE 40 MG VIAL IV SCH (08:45)
[2024-12-07] MEDS: ALLOPURINOL 100 MG TABLET PO SCH (08:45)
[2024-12-07] MEDS: OLANZAPINE 5 MG TABLET PO SCH (08:59)
[2024-12-07] MEDS ORDERED: OLANZAPINE 10 MG TABLET PO SCH (09:00)
[2024-12-07] MEDS: ALBUMIN 25% 25 GM in PREMIX 1 EA IV SCH (11:57)
[2024-12-07 14:20] LABS: CALCIUM, SERUM 8.5 mg/dL (8.5-10.1); CREATININE 4.6 mg/dL (0.6-1.3); SODIUM SERUM 135.0 mmol/L (136-145); UREA NITROGEN, BLOOD 59.0 mg/dL (7-18)
[2024-12-07 20:34] LABS: PLATELET COUNT (AUTO) 308 K/uL (150-450); RED BLOOD CELL COUNT(AUTO) 2.77 MIL/uL (4.5-6.0); RED CELL DISTRIBUTION WIDTH 19.4 % (11.5-15.0); WHITE BLOOD COUNT (AUTO) 27.3 K/uL (4.3-11.0)
[2024-12-07] MEDS: ONDANSETRON HCL/PF 4 MG/2 ML VIAL IVP PRN (20:59)
[2024-12-07 21:00] LABS: BAND % (MANUAL) 3 % (0.0-5.0); LYMPHOCYTES % (MANUAL) 10 % (16-48); MONOCYTES % (MANUAL) 4 % (0-11.0); NEUTROPHILS % (MANUAL) 83 (42-76)
[2024-12-07 21:01] LABS: PLATELET ESTIMATE ADEQUATE
[2024-12-08] VITALS (33 sets, daily range): BP systolic 93–147; BP diastolic 46–87; TEMP 97–97.9; O2SAT 92–99
[2024-12-08 04:50] LABS: PLATELET COUNT (AUTO) 297 K/uL (150-450); RED BLOOD CELL COUNT(AUTO) 2.74 MIL/uL (4.5-6.0); RED CELL DISTRIBUTION WIDTH 19.2 % (11.5-15.0); WHITE BLOOD COUNT (AUTO) 27.9 K/uL (4.3-11.0)
[2024-12-08 05:08] LABS: CREATINE KINASE, TOTAL 13 U/L (39-308)
[2024-12-08 05:15] LABS: ASPARTATE AMINOTRANSFERASE 14 U/L (15-37); CALCIUM, SERUM 8.2 mg/dL (8.5-10.1); CREATININE 4.8 mg/dL (0.6-1.3); PHOSPHORUS 4.9 mg/dL (2.5-4.9); SODIUM SERUM 136 mmol/L (136-145); TOTAL PROTEIN, SERUM 6.2 g/dL (6.4-8.2); UREA NITROGEN, BLOOD 60 mg/dL (7-18)
[2024-12-08] MEDS: VANCOMYCIN HCL 125 MG/2.5 ML ORAL.SUSP PO SCH ×2 (05:48→12:03)
[2024-12-08] MEDS ORDERED: VANCOMYCIN HCL 125 MG/2.5 ML ORAL.SUSP PO SCH (08:00)
[2024-12-08] MEDS: FUROSEMIDE 100 MG/10 ML VIAL IV ONE (09:08)
[2024-12-08 12:51] LABS: CREATININE, URINE 283.0 MG/DL (30.0-125.0); URINE SODIUM, RANDOM 31.0 mmol/l (40-220); URINE TOTAL PROTEIN 538.9 mg/dL (0-11.9)
[2024-12-08 13:04] LABS: APPEARANCE,URINE SLIGHTLY CLOUDY (CLEAR); BLOOD, URINE NEGATIVE Ery/uL (NEGATIVE); LEUKOCYTE ESTERASE ,URINE TRACE (NEGATIVE); NITRITE, URINE NEGATIVE (NEGATIVE); UGLUCOSE NEGATIVE (NEGATIVE)
[2024-12-08 14:38] LABS: ADD URINE CULTURE YES; SQUAMOUS EPITHELIAL CELL,UR Few /HPF (None Seen)
[2024-12-08 15:23] LABS: EOSINOPHIL,URINE None Seen
[2024-12-08] MEDS: ALBUMIN 25% 25 GM in PREMIX 1 EA IV PRN (17:13)
[2024-12-08 20:33] LABS: PLATELET COUNT (AUTO) 270 K/uL (150-450); RED BLOOD CELL COUNT(AUTO) 2.83 MIL/uL (4.5-6.0); RED CELL DISTRIBUTION WIDTH 20.0 % (11.5-15.0); WHITE BLOOD COUNT (AUTO) 18.8 K/uL (4.3-11.0)
[2024-12-09] VITALS (27 sets, daily range): BP systolic 106–139; BP diastolic 50–77; TEMP 96.8–98.4; O2SAT 94–99
[2024-12-09 04:24] LABS: PLATELET COUNT (AUTO) 272 K/uL (150-450); RED BLOOD CELL COUNT(AUTO) 2.76 MIL/uL (4.5-6.0); RED CELL DISTRIBUTION WIDTH 20.0 % (11.5-15.0); WHITE BLOOD COUNT (AUTO) 16.8 K/uL (4.3-11.0)
[2024-12-09 04:41] LABS: CALCIUM, SERUM 8.4 mg/dL (8.5-10.1); CREATININE 4.0 mg/dL (0.6-1.3); PHOSPHORUS 3.1 mg/dL (2.5-4.9); SODIUM SERUM 136.0 mmol/L (136-145); UREA NITROGEN, BLOOD 41.0 mg/dL (7-18)
[2024-12-09 05:03] LABS: ABG BASE EXCESS -1.9 mmol/L (-2.0-3.0); ABG OXYGEN SATURATION 96.2 % (94.0-98.0); ABG PCO2 65.1 mmHg (35.0-48.0); ABG PH 7.225 (7.350-7.450); ABG PO2 85.6 mmHg (83.0-108.0); ABG TOTAL HEMOGLOBIN 9.3 G/dL (13.5-17.5); FRACTIONATED INSPIRED OXYGEN 35.0 %; SET RATE, BG 20.0; SITE, ABG RIGHT RADIAL
[2024-12-09 06:07] LABS: HEPATITIS B CORE AB, IgM Negative (Negative)
[2024-12-09 08:07] LABS: PTH, INTACT 37 pg/mL (15-65)
[2024-12-09] MEDS: PANTOPRAZOLE 40 MG TABLET.DR PO SCH (08:12)
[2024-12-10] VITALS (41 sets, daily range): BP systolic 97–147; BP diastolic 48–114; TEMP 97.6–98; O2SAT 95–100
[2024-12-10 08:03] LABS: ABG BASE EXCESS -0.2 mmol/L (-2.0-3.0); ABG OXYGEN SATURATION 94.7 % (94.0-98.0); ABG PCO2 76.2 mmHg (35.0-48.0); ABG PH 7.198 (7.350-7.450); ABG PO2 77.2 mmHg (83.0-108.0); ABG TOTAL HEMOGLOBIN 9.7 G/dL (13.5-17.5); FLOW, BLOOD GAS 3.00 L/min (0.00-30.00); FRACTIONATED INSPIRED OXYGEN 32.0 %; SITE, ABG RIGHT RADIAL
[2024-12-10 10:17] LABS: PLATELET COUNT (AUTO) 256 K/uL (150-450); RED BLOOD CELL COUNT(AUTO) 2.99 MIL/uL (4.5-6.0); RED CELL DISTRIBUTION WIDTH 19.5 % (11.5-15.0); WHITE BLOOD COUNT (AUTO) 10.3 K/uL (4.3-11.0)
[2024-12-10 10:23] LABS: ASPARTATE AMINOTRANSFERASE 29 U/L (15-37); CALCIUM, SERUM 8.1 mg/dL (8.5-10.1); CREATININE 3.7 mg/dL (0.6-1.3); PHOSPHORUS 2.8 mg/dL (2.5-4.9); SODIUM SERUM 135 mmol/L (136-145); TOTAL PROTEIN, SERUM 5.8 g/dL (6.4-8.2); UREA NITROGEN, BLOOD 35 mg/dL (7-18)
[2024-12-10 10:45] LABS: ABG BASE EXCESS -0.3 mmol/L (-2.0-3.0); ABG OXYGEN SATURATION 97.5 % (94.0-98.0); ABG PCO2 73.0 mmHg (35.0-48.0); ABG PH 7.211 (7.350-7.450); ABG PO2 100.0 mmHg (83.0-108.0); ABG TOTAL HEMOGLOBIN 10.1 G/dL (13.5-17.5); FRACTIONATED INSPIRED OXYGEN 40.0 %; SET RATE, BG 20.0; SITE, ABG RIGHT RADIAL
[2024-12-11] VITALS (26 sets, daily range): BP systolic 105–159; BP diastolic 49–99; TEMP 96.8–98.1; O2SAT 99–100
[2024-12-11 05:00] LABS: PLATELET COUNT (AUTO) 269 K/uL (150-450); RED BLOOD CELL COUNT(AUTO) 3.19 MIL/uL (4.5-6.0); RED CELL DISTRIBUTION WIDTH 19.7 % (11.5-15.0); WHITE BLOOD COUNT (AUTO) 8.8 K/uL (4.3-11.0)
[2024-12-11 05:26] LABS: ASPARTATE AMINOTRANSFERASE 44.0 U/L (15-37); CALCIUM, SERUM 7.9 mg/dL (8.5-10.1); CREATININE 3.3 mg/dL (0.6-1.3); SODIUM SERUM 136.0 mmol/L (136-145); TOTAL PROTEIN, SERUM 5.9 g/dL (6.4-8.2); UREA NITROGEN, BLOOD 25.0 mg/dL (7-18)
[2024-12-11 05:45] LABS: LYMPHOCYTES % (MANUAL) 6 % (16-48); MONOCYTES % (MANUAL) 10 % (0-11.0); NEUTROPHILS % (MANUAL) 84 (42-76)
[2024-12-11 05:46] LABS: PLATELET ESTIMATE ADEQUATE
[2024-12-11] MEDS: DEXTROSE 50%-WATER 50 ML DISP.SYRIN IV PRN (07:47)
[2024-12-11 09:23] LABS: ABG BASE EXCESS -0.1 mmol/L (-2.0-3.0); ABG OXYGEN SATURATION 97.0 % (94.0-98.0); ABG PCO2 71.9 mmHg (35.0-48.0); ABG PH 7.219 (7.350-7.450); ABG PO2 97.7 mmHg (83.0-108.0); ABG TOTAL HEMOGLOBIN 10.0 G/dL (13.5-17.5); FLOW, BLOOD GAS 4.00 L/min (0.00-30.00); FRACTIONATED INSPIRED OXYGEN 36.0 %; SITE, ABG LEFT RADIAL
[2024-12-11] MEDS: GLUCERNA 1.2 1,000 ML BOTTLE GT PRN (17:35)
[2024-12-12] VITALS (41 sets, daily range): BP systolic 84–148; BP diastolic 49–96; TEMP 97–97.8; O2SAT 95–100
[2024-12-12 05:09] LABS: PLATELET COUNT (AUTO) 237 K/uL (150-450); RED BLOOD CELL COUNT(AUTO) 3.16 MIL/uL (4.5-6.0); RED CELL DISTRIBUTION WIDTH 18.7 % (11.5-15.0); WHITE BLOOD COUNT (AUTO) 7.4 K/uL (4.3-11.0)
[2024-12-12 05:23] LABS: ASPARTATE AMINOTRANSFERASE 31.0 U/L (15-37); CALCIUM, SERUM 8.1 mg/dL (8.5-10.1); CREATININE 3.7 mg/dL (0.6-1.3); PHOSPHORUS 2.9 mg/dL (2.5-4.9); SODIUM SERUM 132.0 mmol/L (136-145); TOTAL PROTEIN, SERUM 5.7 g/dL (6.4-8.2); UREA NITROGEN, BLOOD 31.0 mg/dL (7-18)
[2024-12-12] MEDS: THERAHONEY GEL 1.5 OZ TUBE TP SCH (08:34)
[2024-12-12] MEDS ORDERED: AMIODARONE 450 MG in IV D5W 241 ML IV PRN (18:30)
[2024-12-12] MEDS: AMIODARONE 150 MG in IV D5W 100 ML IV ONE (19:26)
[2024-12-12] MEDS: AMIODARONE 450 MG in IV D5W 241 ML IV PRN (19:38)
[2024-12-13] VITALS (45 sets, daily range): BP systolic 81–129; BP diastolic 50–94; TEMP 97–98.1; O2SAT 95–100
[2024-12-13 03:07] LABS: *SPE A/G RATIO 0.8 (0.7-1.7); *SPE ALBUMIN 2.5 g/dL (2.9-4.4); *SPE ALPHA-1-GLOBULIN 0.5 g/dL (0.0-0.4); *SPE ALPHA-2-GLOBULIN 0.6 g/dL (0.4-1.0); *SPE BETA GLOBULIN 0.7 g/dL (0.7-1.3); *SPE GLOBULIN, TOTAL 3.0 g/dL (2.2-3.9); *SPE M-SPIKE Not Observed g/dL (Not Observed); *SPE PROTEIN TOTAL 5.5 g/dL (6.0-8.5); *SPEGAMMA GLOBULIN 1.2 g/dL (0.4-1.8)
[2024-12-13 04:37] LABS: PLATELET COUNT (AUTO) 268 K/uL (150-450); RED BLOOD CELL COUNT(AUTO) 2.87 MIL/uL (4.5-6.0); RED CELL DISTRIBUTION WIDTH 19.2 % (11.5-15.0); WHITE BLOOD COUNT (AUTO) 8.4 K/uL (4.3-11.0)
[2024-12-13 07:51] LABS: ABG BASE EXCESS 0.5 mmol/L (-2.0-3.0); ABG OXYGEN SATURATION 96.8 % (94.0-98.0); ABG PCO2 62.5 mmHg (35.0-48.0); ABG PH 7.270 (7.350-7.450); ABG PO2 92.8 mmHg (83.0-108.0); ABG TOTAL HEMOGLOBIN 9.2 G/dL (13.5-17.5); FLOW, BLOOD GAS 3.00 L/min (0.00-30.00); FRACTIONATED INSPIRED OXYGEN 32.0 %; SITE, ABG LEFT RADIAL
[2024-12-13] MEDS: INSULIN REGULAR, HUMAN 100 UNIT/ML 3 ML VIAL SQ PRN (12:52)
[2024-12-13 13:17] LABS: ASPARTATE AMINOTRANSFERASE 19.0 U/L (15-37); CALCIUM, SERUM 7.8 mg/dL (8.5-10.1); CREATININE 3.3 mg/dL (0.6-1.3); PHOSPHORUS 2.3 mg/dL (2.5-4.9); SODIUM SERUM 133.0 mmol/L (136-145); TOTAL PROTEIN, SERUM 5.6 g/dL (6.4-8.2); UREA NITROGEN, BLOOD 25.0 mg/dL (7-18)
[2024-12-13] MEDS: K PHOS NEUTRAL 250 MG TABLET PO ONE (15:36)
[2024-12-14] VITALS (29 sets, daily range): BP systolic 91–129; BP diastolic 49–90; TEMP 97.1–97.9; O2SAT 97–100
[2024-12-14 04:42] LABS: ASPARTATE AMINOTRANSFERASE 19.0 U/L (15-37); CALCIUM, SERUM 7.8 mg/dL (8.5-10.1); CREATININE 3.6 mg/dL (0.6-1.3); PHOSPHORUS 3.1 mg/dL (2.5-4.9); SODIUM SERUM 132.0 mmol/L (136-145); TOTAL PROTEIN, SERUM 5.4 g/dL (6.4-8.2); UREA NITROGEN, BLOOD 28.0 mg/dL (7-18)
[2024-12-14 04:43] LABS: PLATELET COUNT (AUTO) 246 K/uL (150-450); RED BLOOD CELL COUNT(AUTO) 2.73 MIL/uL (4.5-6.0); RED CELL DISTRIBUTION WIDTH 19.2 % (11.5-15.0); WHITE BLOOD COUNT (AUTO) 11.6 K/uL (4.3-11.0)
[2024-12-14] MEDS: AMIODARONE HCL 200 MG TABLET PO SCH (10:56)
[2024-12-15] VITALS: BP 109/69; TEMP 98.2; O2SAT 99
[2024-12-15 04:00] VITALS: BP 101/57; TEMP 98.4; O2SAT 92
[2024-12-15 06:52] LABS: PLATELET COUNT (AUTO) 330 K/uL (150-450); RED BLOOD CELL COUNT(AUTO) 2.78 MIL/uL (4.5-6.0); RED CELL DISTRIBUTION WIDTH 18.7 % (11.5-15.0); WHITE BLOOD COUNT (AUTO) 16.8 K/uL (4.3-11.0)
[2024-12-15 07:15] LABS: ASPARTATE AMINOTRANSFERASE 14.0 U/L (15-37); CALCIUM, SERUM 7.7 mg/dL (8.5-10.1); CREATININE 3.2 mg/dL (0.6-1.3); PHOSPHORUS 2.3 mg/dL (2.5-4.9); SODIUM SERUM 136.0 mmol/L (136-145); TOTAL PROTEIN, SERUM 5.5 g/dL (6.4-8.2); UREA NITROGEN, BLOOD 22.0 mg/dL (7-18)
[2024-12-15 08:00] VITALS: BP 99/53; TEMP 98.4; O2SAT 92
[2024-12-15 16:00] VITALS: BP 106/54; TEMP 98.6; O2SAT 92
[2024-12-15] MEDS: NEUTRA PHOS 1 POWD.PACKET PO ONE (17:29)
[2024-12-15] MEDS: VANCOMYCIN HCL 250 MG CAPSULE PO SCH (17:30)
[2024-12-15] MEDS ORDERED: VANCOMYCIN HCL 250 MG CAPSULE PO SCH (18:00)
[2024-12-15 20:00] VITALS: BP 98/49; TEMP 97.3; O2SAT 95
[2024-12-15] MEDS ORDERED: ENOX30DI5 SQ (21:17)
[2024-12-16 04:00] VITALS: BP 105/60; TEMP 98.2; O2SAT 99
[2024-12-16] MEDS: FIDAXOMICIN 200 MG TABLET PO SCH (09:01)
[2024-12-16 10:51] LABS: PLATELET COUNT (AUTO) 424 K/uL (150-450); RED BLOOD CELL COUNT(AUTO) 2.89 MIL/uL (4.5-6.0); RED CELL DISTRIBUTION WIDTH 19.1 % (11.5-15.0); WHITE BLOOD COUNT (AUTO) 17.0 K/uL (4.3-11.0)
[2024-12-16 11:11] LABS: ASPARTATE AMINOTRANSFERASE 12.0 U/L (15-37); CALCIUM, SERUM 7.9 mg/dL (8.5-10.1); CREATININE 4.0 mg/dL (0.6-1.3); PHOSPHORUS 3.3 mg/dL (2.5-4.9); SODIUM SERUM 131.0 mmol/L (136-145); TOTAL PROTEIN, SERUM 5.8 g/dL (6.4-8.2); UREA NITROGEN, BLOOD 33.0 mg/dL (7-18)
[2024-12-16 12:00] VITALS: BP 105/60; TEMP 98.2; O2SAT 99
[2024-12-16 20:00] VITALS: BP 94/51; TEMP 96.9; O2SAT 100
[2024-12-16] MEDS ORDERED: ALBUMIN 25% 100 ML IV ONE (21:55)
[2024-12-17 04:00] VITALS: BP 122/62; TEMP 97; O2SAT 95
[2024-12-17 07:46] LABS: CALCIUM, SERUM 8.1 mg/dL (8.5-10.1); CREATININE 3.3 mg/dL (0.6-1.3); SODIUM SERUM 134.0 mmol/L (136-145); UREA NITROGEN, BLOOD 25.0 mg/dL (7-18)
[2024-12-17 08:00] VITALS: BP 112/59; TEMP 97.9; O2SAT 95
[2024-12-17 16:00] VITALS: BP 106/56; TEMP 97.7; O2SAT 95
[2024-12-17 20:00] VITALS: BP 117/61; TEMP 97.7; O2SAT 95; O2SAT 97
[2024-12-17] MEDS: ACETAMINOPHEN 325 MG TABLET PO PRN (21:09)
[2024-12-18 02:00] VITALS: BP 121/62; TEMP 97.7; O2SAT 95
[2024-12-18] MEDS: MAG HYDROX/AL HYDROX/SIMETH 30 ML UDC PO PRN (03:25)
[2024-12-18 04:00] VITALS: BP 121/62; TEMP 97.7; O2SAT 96
[2024-12-18 08:00] VITALS: BP 118/67; TEMP 97.9; O2SAT 97
[2024-12-18 08:53] LABS: PLATELET COUNT (AUTO) 487 K/uL (150-450); RED BLOOD CELL COUNT(AUTO) 2.49 MIL/uL (4.5-6.0); RED CELL DISTRIBUTION WIDTH 19.3 % (11.5-15.0); WHITE BLOOD COUNT (AUTO) 13.7 K/uL (4.3-11.0)
[2024-12-18 09:12] LABS: ASPARTATE AMINOTRANSFERASE 9.0 U/L (15-37); CALCIUM, SERUM 8.0 mg/dL (8.5-10.1); CREATININE 3.9 mg/dL (0.6-1.3); PHOSPHORUS 3.6 mg/dL (2.5-4.9); SODIUM SERUM 131.0 mmol/L (136-145); TOTAL PROTEIN, SERUM 5.6 g/dL (6.4-8.2); UREA NITROGEN, BLOOD 34.0 mg/dL (7-18)
[2024-12-18 10:02] LABS: LYMPHOCYTES % (MANUAL) 4 % (16-48); NEUTROPHILS % (MANUAL) 87 (42-76)
[2024-12-18 10:03] LABS: MONOCYTES % (MANUAL) 9 % (0-11.0); PLATELET ESTIMATE INCREASED
[2024-12-18 16:00] VITALS: BP 119/67; TEMP 96.4; O2SAT 95
[2024-12-18 20:00] VITALS: BP 149/63; TEMP 98.8; O2SAT 100
[2024-12-19 04:00] VITALS: BP 108/57; TEMP 97.9; O2SAT 97
[2024-12-19 07:21] LABS: CALCIUM, SERUM 8.2 mg/dL (8.5-10.1); CREATININE 3.0 mg/dL (0.6-1.3); SODIUM SERUM 136.0 mmol/L (136-145); UREA NITROGEN, BLOOD 22.0 mg/dL (7-18)
[2024-12-19 08:00] VITALS: BP 111/55; TEMP 97.9; O2SAT 97
[2024-12-19] MEDS ORDERED: MAG HYDROX/AL HYDROX/SIMETH 30 ML UDC ONE (08:48)
[2024-12-19 08:51] LABS: PLATELET COUNT (AUTO) 465 K/uL (150-450); RED BLOOD CELL COUNT(AUTO) 2.39 MIL/uL (4.5-6.0); RED CELL DISTRIBUTION WIDTH 19.1 % (11.5-15.0); WHITE BLOOD COUNT (AUTO) 11.8 K/uL (4.3-11.0)
[2024-12-19] MEDS ORDERED: HEPARIN SODIUM, PORCINE 1,000 UNIT/ML VIAL ONE (09:08)
[2024-12-19] MEDS ORDERED: LIDOCAINE HCL/MPF 1% 30 ML VIAL IJ ONE (09:08)
[2024-12-19 10:21] LABS: LYMPHOCYTES % (MANUAL) 5 % (16-48); MONOCYTES % (MANUAL) 8 % (0-11.0); NEUTROPHILS % (MANUAL) 87 (42-76); PLATELET ESTIMATE ADEQUATE
[2024-12-19 15:35] VITALS: BP 121/80; TEMP 98
[2024-12-19 16:00] VITALS: BP 121/80; TEMP 98; O2SAT 97
[2024-12-19 17:30] VITALS: BP 106/60; TEMP 98.2
[2024-12-19] MEDS: CEFAZOLIN 1 GM in IV D5W 50 ML IV SCH (18:33)
[2024-12-19 20:00] VITALS: BP 108/60; TEMP 97.6; O2SAT 99
[2024-12-20 04:00] VITALS: BP 116/73; TEMP 97.9; O2SAT 97
[2024-12-20 07:11] LABS: PLATELET COUNT (AUTO) 420 K/uL (150-450); RED BLOOD CELL COUNT(AUTO) 2.61 MIL/uL (4.5-6.0); RED CELL DISTRIBUTION WIDTH 19.6 % (11.5-15.0); WHITE BLOOD COUNT (AUTO) 10.7 K/uL (4.3-11.0)
[2024-12-20 08:00] VITALS: BP 122/65; TEMP 97.9; O2SAT 97
[2024-12-20 08:02] LABS: ASPARTATE AMINOTRANSFERASE 10.0 U/L (15-37); CALCIUM, SERUM 8.0 mg/dL (8.5-10.1); CREATININE 2.7 mg/dL (0.6-1.3); PHOSPHORUS 3.7 mg/dL (2.5-4.9); SODIUM SERUM 137.0 mmol/L (136-145); TOTAL PROTEIN, SERUM 5.7 g/dL (6.4-8.2); UREA NITROGEN, BLOOD 20.0 mg/dL (7-18)
[2024-12-20 16:00] VITALS: BP 139/72; TEMP 97.7; O2SAT 95
[2024-12-20 16:33] VITALS: BP 139/72
== END 2024-12-20 17:51 | DRG 871 ==
LOC: ER 14:35 → ICU 17:19 → TELE1 12-14 19:43 → MEDSG1 12-15 08:57
PROVIDERS: ADMIT Nurse Practitioner Acute Care
PROC: 5A09357 Assistance with Respiratory Ventilation, Less than 24 Consecutive Hours, Continuous Positive Airway Pressure (ICD-10-PCS; principal; 2024-12-06)
PROC: 5A09357 Assistance with Respiratory Ventilation, Less than 24 Consecutive Hours, Continuous Positive Airway Pressure (ICD-10-PCS; 2024-12-08)
PROC: 05HM33Z Insertion of Infusion Device into Right Internal Jugular Vein, Percutaneous Approach (ICD-10-PCS; 2024-12-08)
PROC: B543ZZA Ultrasonography of Right Jugular Veins, Guidance (ICD-10-PCS; 2024-12-08)
PROC: 5A1D70Z Performance of Urinary Filtration, Intermittent, Less than 6 Hours Per Day (ICD-10-PCS; 2024-12-08)
PROC: 05H933Z Insertion of Infusion Device into Right Brachial Vein, Percutaneous Approach (ICD-10-PCS; 2024-12-12)
PROC: B54MZZA Ultrasonography of Right Upper Extremity Veins, Guidance (ICD-10-PCS; 2024-12-12)
PROC: 30233N1 Transfusion of Nonautologous Red Blood Cells into Peripheral Vein, Percutaneous Approach (ICD-10-PCS; 2024-12-19)
PROC: 0JH63XZ Insertion of Tunneled Vascular Access Device into Chest Subcutaneous Tissue and Fascia, Percutaneous Approach (ICD-10-PCS; 2024-12-19)
PROC: 02HV33Z Insertion of Infusion Device into Superior Vena Cava, Percutaneous Approach (ICD-10-PCS; 2024-12-19)
PROC: B518YZA Fluoroscopy of Superior Vena Cava using Other Contrast, Guidance (ICD-10-PCS; 2024-12-19)
DX: A41.9 Sepsis, unspecified organism (principal); G93.41 Metabolic encephalopathy; I50.33 Acute on chronic diastolic (congestive) heart failure; J96.21 Acute and chronic respiratory failure with hypoxia; J96.22 Acute and chronic respiratory failure with hypercapnia; A04.71 Enterocolitis due to Clostridium difficile, recurrent; N17.9 Acute kidney failure, unspecified; I13.0 Hypertensive heart and chronic kidney disease with heart failure and stage 1 through stage 4 chronic kidney disease, or unspecified chronic kidney disease; E87.1 Hypo-osmolality and hyponatremia; E87.4 Mixed disorder of acid-base balance; I31.39 Other pericardial effusion (noninflammatory); E87.3 Alkalosis; N18.4 Chronic kidney disease, stage 4 (severe); F20.0 Paranoid schizophrenia; J98.11 Atelectasis; R65.20 Severe sepsis without septic shock; E11.22 Type 2 diabetes mellitus with diabetic chronic kidney disease; E66.9 Obesity, unspecified; E78.5 Hyperlipidemia, unspecified; E86.9 Volume depletion, unspecified; I48.91 Unspecified atrial fibrillation; N40.1 Benign prostatic hyperplasia with lower urinary tract symptoms; Z87.01 Personal history of pneumonia (recurrent); Z87.440 Personal history of urinary (tract) infections; Z79.4 Long term (current) use of insulin; Z68.35 Body mass index [BMI] 35.0-35.9, adult; E83.9 Disorder of mineral metabolism, unspecified; I07.1 Rheumatic tricuspid insufficiency; D64.9 Anemia, unspecified; Z79.899 Other long term (current) drug therapy; M10.9 Gout, unspecified; L98.8 Other specified disorders of the skin and subcutaneous tissue; L90.5 Scar conditions and fibrosis of skin; S81.002A Unspecified open wound, left knee, initial encounter; X58.XXXA Exposure to other specified factors, initial encounter; Y93.9 Activity, unspecified; Y92.129 Unspecified place in nursing home as the place of occurrence of the external cause; R33.8 Other retention of urine; S50.312A Abrasion of left elbow, initial encounter; K59.00 Constipation, unspecified; Z87.891 Personal history of nicotine dependence
CPT/HCPCS: 31720; 36415; 36600; 70450-TC; 71045-TC; 71250-TC; 74018; 80048-TC; 80053-TC; 80076-TC; 81001; 82550-TC; 82570-TC; 82803-TC; 82962-TC; 83605-TC; 83735-TC; 83880; 83970; 84100-TC; 84155; 84165; 84300-TC; 84443-TC; 84484-TC; 85025-TC; 85027-TC; 86704; 86705; 86706; 86803; 86850-TC; 87040-TC; 87081-TC; 87086-TC; 87340; 90935-TC; 92526; 92611-TC; 94760-TC; 94762-TC; 94799-TC; A4216; A4223; C1750; C1752; C1769; G0378; J0282; J0690; J1644; J1815; J1938; J2405; J2470; J2543; J2704; J3370; J3490; J7030; J7050; J7060; P9016; P9047

== ENCOUNTER 2024-12-23 17:47 | Inpatient (IN) | payer MEDICARE, OTHER ==
[~2024-12-23] VITALS: Ht 188 cm; Wt 128.4 kg
[~2024-12-23 17:47] MED LIST changes: +AMIN30LI66 PO; +BUME1TAB34 PO; -COLC0.6T67 PO; +ENOX30DI5 SQ; +FIDA200T PO; -FURO-144 PO; -LEVO500T90 PO; +METR-147 PO; +ZINC1CAP2 PO
[2024-12-23 18:27] LABS: PLATELET COUNT (AUTO) 332 K/uL (150-450); RED BLOOD CELL COUNT(AUTO) 2.59 MIL/uL (4.5-6.0); RED CELL DISTRIBUTION WIDTH 19.1 % (11.5-15.0); WHITE BLOOD COUNT (AUTO) 6.8 K/uL (4.3-11.0)
[2024-12-23] MEDS ORDERED: AMIO400T5 PO (18:28)
[2024-12-23] MEDS ORDERED: POVI1MED TP (18:28)
[2024-12-23] MEDS ORDERED: PANT40TA49 PO (18:28)
[2024-12-23] MEDS ORDERED: CLOT15CR5 TP (18:28)
[2024-12-23] MEDS ORDERED: MAG-55 PO (18:28)
[2024-12-23 18:34] LABS: CALCIUM, SERUM 8.3 mg/dL (8.5-10.1); CREATININE 4.8 mg/dL (0.6-1.3); SODIUM SERUM 129 mmol/L (136-145); UREA NITROGEN, BLOOD 43 mg/dL (7-18)
[2024-12-23 18:35] LABS: INR 1.26 (0.91-1.10)
[2024-12-23 18:36] LABS: PHOSPHORUS 5.2 mg/dL (2.5-4.9)
[2024-12-23 18:39] LABS: ALCOHOL, BLOOD < 3 mg/dL (0-10); ASPARTATE AMINOTRANSFERASE 17 U/L (15-37); TOTAL PROTEIN, SERUM 5.8 g/dL (6.4-8.2)
[2024-12-23 18:40] LABS: SERUM AMMONIA 26 umol/L (11-32)
[2024-12-23 19:21] LABS: APPEARANCE,URINE CLEAR (CLEAR); BLOOD, URINE Negative Ery/uL (NEGATIVE); LEUKOCYTE ESTERASE ,URINE Negative (NEGATIVE); UGLUCOSE Negative (NEGATIVE)
[2024-12-23] MEDS: IV NS 0.9% 500 ML BAG IV ONE (19:30)
[2024-12-23 19:34] LABS: NITRITE, URINE NEGATIVE (NEGATIVE)
[2024-12-23 19:35] LABS: ADD URINE CULTURE NO; SQUAMOUS EPITHELIAL CELL,UR None Seen /HPF (None Seen)
[2024-12-23 19:36] LABS: URINE AMORPHOUS URATE Few /HPF (None Seen)
[2024-12-23 19:50] LABS: AMPHETAMINE, URINE NEGATIVE (NEGATIVE); BARBITURATE, URINE NEGATIVE (NEGATIVE); BENZODIAZEPINE, URINE NEGATIVE (NEGATIVE); CANNABINOID, URINE NEGATIVE (NEGATIVE); COCCAINE, URINE NEGATIVE (NEGATIVE); OPIATE, URINE NEGATIVE (NEGATIVE)
[2024-12-23 20:00] VITALS: BP 112/68; TEMP 97.3; O2SAT 94
[2024-12-23] MEDS ORDERED: ONDANSETRON HCL/PF 4 MG/2 ML VIAL IVP PRN (21:30)
[2024-12-23] MEDS: DEXTROSE 50%-WATER 50 ML DISP.SYRIN IVP ONE (22:06)
[2024-12-23] MEDS: IV D5/0.45 NACL 1,000 ML IV PRN (22:16)
[2024-12-23] MEDS: INSULIN REGULAR, HUMAN 100 UNIT/ML 3 ML VIAL SQ PRN (22:44)
[2024-12-23] MEDS: BLOOD SUGAR DIAGNOSTIC 1 EACH STRIP IN SCH (22:44)
[2024-12-23 23:00] VITALS: BP 112/68; O2SAT 94
[2024-12-24] VITALS (20 sets, daily range): BP systolic 77–173; BP diastolic 42–88; TEMP 97.3–99; O2SAT 90–100
[2024-12-24] MEDS: DEXTROSE 50%-WATER 50 ML DISP.SYRIN IV PRN (06:17)
[2024-12-24 06:41] LABS: PLATELET COUNT (AUTO) 338 K/uL (150-450); RED BLOOD CELL COUNT(AUTO) 2.41 MIL/uL (4.5-6.0); RED CELL DISTRIBUTION WIDTH 19.3 % (11.5-15.0); WHITE BLOOD COUNT (AUTO) 5.8 K/uL (4.3-11.0)
[2024-12-24 07:10] LABS: ASPARTATE AMINOTRANSFERASE 15 U/L (15-37); CALCIUM, SERUM 7.9 mg/dL (8.5-10.1); CREATININE 4.7 mg/dL (0.6-1.3); PHOSPHORUS 5.4 mg/dL (2.5-4.9); SODIUM SERUM 133 mmol/L (136-145); TOTAL PROTEIN, SERUM 5.7 g/dL (6.4-8.2); UREA NITROGEN, BLOOD 45 mg/dL (7-18)
[2024-12-24 07:29] LABS: SERUM AMMONIA 64 umol/L (11-32)
[2024-12-24 07:38] LABS: ABG BASE EXCESS -2.4 mmol/L (-2.0-3.0); ABG OXYGEN SATURATION 96.3 % (94.0-98.0); ABG PCO2 75.5 mmHg (35.0-48.0); ABG PH 7.164 (7.350-7.450); ABG PO2 98.7 mmHg (83.0-108.0); ABG TOTAL HEMOGLOBIN 7.9 G/dL (13.5-17.5); FLOW, BLOOD GAS 10.00 L/min (0.00-30.00); FRACTIONATED INSPIRED OXYGEN 60.0 %; SITE, ABG RIGHT RADIAL
[2024-12-24] MEDS: PANTOPRAZOLE 40 MG VIAL IV SCH (08:27)
[2024-12-24 10:30] LABS: ABG BASE EXCESS -4.4 mmol/L (-2.0-3.0); ABG OXYGEN SATURATION 93.0 % (94.0-98.0); ABG PCO2 86.4 mmHg (35.0-48.0); ABG PH 7.095 (7.350-7.450); ABG PO2 82.5 mmHg (83.0-108.0); ABG TOTAL HEMOGLOBIN 8.6 G/dL (13.5-17.5); FRACTIONATED INSPIRED OXYGEN 50.0 %; SET RATE, BG 20.0; SITE, ABG RIGHT RADIAL
[2024-12-24] MEDS ORDERED: ALBUMIN 25% 12.5 GM/50 ML BOTTLE IV ONE (10:30)
[2024-12-24] MEDS: SODIUM BICARBONATE SYR 50 MEQ/50 ML DISP.SYRIN IV ONE (10:44)
[2024-12-24] MEDS: NOREPINEPHRINE 8 MG in IV D5W 242 ML IV PRN (10:56)
[2024-12-24] MEDS ORDERED: ALBUMIN 25% 50 GM in PREMIX 1 EA IV ONE (11:00)
[2024-12-24] MEDS: PROPOFOL 100 ML IV PRN ×2 (11:29→20:28)
[2024-12-24] MEDS: LACTULOSE 10 G/15 ML UDC (PYXIS) PO SCH (12:50)
[2024-12-24 13:55] LABS: ABG BASE EXCESS -0.9 mmol/L (-2.0-3.0); ABG OXYGEN SATURATION 99.9 % (94.0-98.0); ABG PCO2 47.6 mmHg (35.0-48.0); ABG PH 7.338 (7.350-7.450); ABG PO2 326.7 mmHg (83.0-108.0); ABG TOTAL HEMOGLOBIN 8.8 G/dL (13.5-17.5); FRACTIONATED INSPIRED OXYGEN 100.0 %; PEEP,BG 5 cm H2O; SET RATE, BG 26.0; VT, ABG 500 mL
[2024-12-24 14:04] LABS: SITE, ABG RIGHT RADIAL
[2024-12-24] MEDS: ALBUTEROL HALF STRENGTH 1.25 MG/3 ML VIAL.NEB NEB SCH (14:20)
[2024-12-24] MEDS: IPRATROPIUM NEB FS 0.5 MG/2.5 ML AMPUL.NEB NEB SCH (14:20)
[2024-12-24] MEDS: IV D5 LR 1,000 ML IV SCH (15:58)
[2024-12-24] MEDS: FIDAXOMICIN 200 MG TABLET NG SCH (16:32)
[2024-12-24] MEDS ORDERED: LORAZEPAM INJ 2 MG/ML VIAL IV PRN (20:30)
[2024-12-25] VITALS (24 sets, daily range): BP systolic 126–159; BP diastolic 67–97; TEMP 98.6–102; O2SAT 96–100
[2024-12-25 04:43] LABS: PLATELET COUNT (AUTO) 342 K/uL (150-450); RED BLOOD CELL COUNT(AUTO) 2.60 MIL/uL (4.5-6.0); RED CELL DISTRIBUTION WIDTH 18.7 % (11.5-15.0); WHITE BLOOD COUNT (AUTO) 5.9 K/uL (4.3-11.0)
[2024-12-25 04:57] LABS: CALCIUM, SERUM 7.5 mg/dL (8.5-10.1); CREATININE 3.0 mg/dL (0.6-1.3); PHOSPHORUS 3.3 mg/dL (2.5-4.9); SODIUM SERUM 134.0 mmol/L (136-145); UREA NITROGEN, BLOOD 28.0 mg/dL (7-18)
[2024-12-25 05:03] LABS: SERUM AMMONIA 29.0 umol/L (11-32)
[2024-12-25 08:35] LABS: ABG BASE EXCESS 3.5 mmol/L (-2.0-3.0); ABG OXYGEN SATURATION 97.0 % (94.0-98.0); ABG PCO2 39.2 mmHg (35.0-48.0); ABG PH 7.464 (7.350-7.450); ABG PO2 94.1 mmHg (83.0-108.0); ABG TOTAL HEMOGLOBIN 8.3 G/dL (13.5-17.5); PEEP,BG 5 cm H2O; SET RATE, BG 20.0; SITE, ABG LEFT RADIAL; VT, ABG 500 mL
[2024-12-25] MEDS: ARIPIPRAZOLE 5 MG TABLET NG SCH (11:16)
[2024-12-25] MEDS: DIVALPROEX SODIUM 250 MG TABLET.DR PO SCH (13:06)
[2024-12-25] MEDS: PRECEDEX 400 MCG/100 ML BOTTLE 100 ML IV PRN (14:31)
[2024-12-25] MEDS: GABAPENTIN 100 MG CAPSULE NG SCH (17:28)
[2024-12-25] MEDS: MUPIROCIN OINT 2% 22 GM TUBE NS SCH (21:07)
[2024-12-25] MEDS: TRAZODONE 50 MG TABLET PO SCH (21:09)
[2024-12-26] VITALS (26 sets, daily range): BP systolic 114–154; BP diastolic 57–81; TEMP 97.9–99.2; O2SAT 91–100
[2024-12-26 05:54] LABS: SERUM AMMONIA 29 umol/L (11-32)
[2024-12-26 05:55] LABS: ASPARTATE AMINOTRANSFERASE 13 U/L (15-37); TOTAL PROTEIN, SERUM 6.0 g/dL (6.4-8.2)
[2024-12-26 08:57] LABS: PLATELET COUNT (AUTO) 334 K/uL (150-450); RED BLOOD CELL COUNT(AUTO) 3.10 MIL/uL (4.5-6.0); RED CELL DISTRIBUTION WIDTH 19.1 % (11.5-15.0); WHITE BLOOD COUNT (AUTO) 10.9 K/uL (4.3-11.0)
[2024-12-26] MEDS ORDERED: PANTOPRAZOLE 40 MG TABLET.DR PO SCH (09:00)
[2024-12-26 09:04] LABS: CALCIUM, SERUM 7.9 mg/dL (8.5-10.1); CREATININE 2.4 mg/dL (0.6-1.3); PHOSPHORUS 3.5 mg/dL (2.5-4.9); SODIUM SERUM 134.0 mmol/L (136-145); UREA NITROGEN, BLOOD 23.0 mg/dL (7-18)
[2024-12-26] MEDS: DIVALPROEX SODIUM 125 MG CAP.SPRINK GT SCH (10:01)
[2024-12-26] MEDS: PANTOPRAZOLE 40 MG VIAL IV SCH (10:01)
[2024-12-26 10:40] LABS: ABG BASE EXCESS 1.9 mmol/L (-2.0-3.0); ABG OXYGEN SATURATION 96.4 % (94.0-98.0); ABG PCO2 37.2 mmHg (35.0-48.0); ABG PH 7.458 (7.350-7.450); ABG PO2 89.2 mmHg (83.0-108.0); ABG TOTAL HEMOGLOBIN 9.0 G/dL (13.5-17.5); FRACTIONATED INSPIRED OXYGEN 30.0 %; PEEP,BG 5 cm H2O; SITE, ABG RIGHT RADIAL
[2024-12-26] MEDS: RIFAXIMIN 550 MG TABLET PO SCH (20:36)
[2024-12-27] VITALS (21 sets, daily range): BP systolic 105–126; BP diastolic 48–64; TEMP 97.7–98.8; O2SAT 96–100
[2024-12-27 02:07] LABS: HEPATITIS B SURFACE AB (QUAL) Non Reactive (.)
[2024-12-27 04:48] LABS: PLATELET COUNT (AUTO) 278 K/uL (150-450); RED BLOOD CELL COUNT(AUTO) 2.49 MIL/uL (4.5-6.0); RED CELL DISTRIBUTION WIDTH 19.0 % (11.5-15.0); WHITE BLOOD COUNT (AUTO) 10.8 K/uL (4.3-11.0)
[2024-12-27] MEDS: ACETAMINOPHEN 325 MG TABLET PO PRN (04:54)
[2024-12-27 04:56] LABS: CALCIUM, SERUM 7.2 mg/dL (8.5-10.1); CREATININE 1.7 mg/dL (0.6-1.3); PHOSPHORUS 4.0 mg/dL (2.5-4.9); SODIUM SERUM 137.0 mmol/L (136-145); UREA NITROGEN, BLOOD 16.0 mg/dL (7-18)
[2024-12-27] MEDS: PROSOURCE / PROSTAT (PYXIS) 30 ML UDC PO SCH (09:24)
[2024-12-27] MEDS: NEPRO VAN 237 ML CAN PO SCH (09:24)
[2024-12-27] MEDS: LEVOCARNITINE 330 MG TABLET PO SCH (09:53)
[2024-12-27] MEDS: POTASSIUM CHLORIDE 10 MEQ TABLET.SA PO SCH (12:07)
[2024-12-27] MEDS: EPOETIN ALFA (10,000 UNIT) 10,000 UNIT/ML VIAL SQ SCH (14:00)
[2024-12-28] VITALS (14 sets, daily range): BP systolic 107–147; BP diastolic 54–69; TEMP 97.7–98.6; O2SAT 94–100
[2024-12-28 07:00] LABS: PLATELET COUNT (AUTO) 278 K/uL (150-450); RED BLOOD CELL COUNT(AUTO) 2.60 MIL/uL (4.5-6.0); RED CELL DISTRIBUTION WIDTH 18.5 % (11.5-15.0); WHITE BLOOD COUNT (AUTO) 10.9 K/uL (4.3-11.0)
[2024-12-28 07:18] LABS: CALCIUM, SERUM 8.2 mg/dL (8.5-10.1); CREATININE 2.7 mg/dL (0.6-1.3); PHOSPHORUS 4.8 mg/dL (2.5-4.9); SODIUM SERUM 134.0 mmol/L (136-145); UREA NITROGEN, BLOOD 28.0 mg/dL (7-18)
[2024-12-28] MEDS: PANTOPRAZOLE 40 MG TABLET.DR PO SCH (08:56)
[2024-12-28] MEDS ORDERED: LORAZEPAM INJ 2 MG/ML VIAL IV PRN (10:00)
[2024-12-29] VITALS (12 sets, daily range): BP systolic 103–154; BP diastolic 56–73; TEMP 97.3–97.9; O2SAT 94–100
[2024-12-29 07:27] LABS: PLATELET COUNT (AUTO) 283 K/uL (150-450); RED BLOOD CELL COUNT(AUTO) 2.52 MIL/uL (4.5-6.0); RED CELL DISTRIBUTION WIDTH 18.6 % (11.5-15.0); WHITE BLOOD COUNT (AUTO) 10.8 K/uL (4.3-11.0)
[2024-12-29 08:34] LABS: CALCIUM, SERUM 8.0 mg/dL (8.5-10.1); CREATININE 2.4 mg/dL (0.6-1.3); PHOSPHORUS 3.9 mg/dL (2.5-4.9); SODIUM SERUM 135.0 mmol/L (136-145); UREA NITROGEN, BLOOD 28.0 mg/dL (7-18)
[2024-12-29] MEDS ORDERED: ARIP5TAB10 NG (08:53)
[2025-01-13] MEDS ORDERED: NEOM10DR11 EACH EAR (11:00)
== END 2024-12-30 00:11 | DRG 208 ==
LOC: ER 17:49 → TELE 20:06 → ICU 12-24 08:50 → TELE1 12-27 10:29 → MEDSG1 12-28 09:43 → TELE1 12-28 10:11 → MEDSG1 12-29 09:24
PROVIDERS: ADMIT Nurse Practitioner Family; ATTEND Internal Medicine
PROC: 5A1945Z Respiratory Ventilation, 24-96 Consecutive Hours (ICD-10-PCS; principal; 2024-12-24)
PROC: 0BH17EZ Insertion of Endotracheal Airway into Trachea, Via Natural or Artificial Opening (ICD-10-PCS; 2024-12-24)
PROC: 5A1D70Z Performance of Urinary Filtration, Intermittent, Less than 6 Hours Per Day (ICD-10-PCS; 2024-12-24)
DX: J44.1 Chronic obstructive pulmonary disease with (acute) exacerbation (principal); J96.22 Acute and chronic respiratory failure with hypercapnia; G93.41 Metabolic encephalopathy; N18.6 End stage renal disease; J96.21 Acute and chronic respiratory failure with hypoxia; I13.2 Hypertensive heart and chronic kidney disease with heart failure and with stage 5 chronic kidney disease, or end stage renal disease; E44.1 Mild protein-calorie malnutrition; E87.1 Hypo-osmolality and hyponatremia; J90 Pleural effusion, not elsewhere classified; D68.9 Coagulation defect, unspecified; F20.0 Paranoid schizophrenia; J98.11 Atelectasis; D63.1 Anemia in chronic kidney disease; E03.9 Hypothyroidism, unspecified; E11.22 Type 2 diabetes mellitus with diabetic chronic kidney disease; E11.649 Type 2 diabetes mellitus with hypoglycemia without coma; E66.9 Obesity, unspecified; E88.09 Other disorders of plasma-protein metabolism, not elsewhere classified; I48.91 Unspecified atrial fibrillation; Z79.4 Long term (current) use of insulin; Z86.19 Personal history of other infectious and parasitic diseases; Z99.2 Dependence on renal dialysis; N40.0 Benign prostatic hyperplasia without lower urinary tract symptoms; Z68.36 Body mass index [BMI] 36.0-36.9, adult; M10.9 Gout, unspecified; E83.51 Hypocalcemia; E78.5 Hyperlipidemia, unspecified; K76.82 Hepatic encephalopathy; E87.6 Hypokalemia; N25.0 Renal osteodystrophy; J32.1 Chronic frontal sinusitis
CPT/HCPCS: 31720; 36415; 36600; 70450-TC; 71045-TC; 80048-TC; 80076-TC; 81001; 82140-TC; 82803-TC; 82962-TC; 83735-TC; 84100-TC; 84439-TC; 84443-TC; 84478-TC; 84484-TC; 85025-TC; 85730-TC; 86706; 87081-TC; 87340; 90935-TC; 92526; 92611; 94002-TC; 94003-TC; 94799-TC; 97110-TC; 97116-TC; 97530-TC; A4216; A4223; A6403; G0378; G0480; J0885; J1815; J2470; J2919; J3490; J7030; J7050; J7060; P9047

== ENCOUNTER 2025-01-03 15:55 | Inpatient (IN) | payer MEDICARE, OTHER ==
[~2025-01-03] VITALS: Ht 172.7 cm; Wt 117.0 kg
[~2025-01-03 15:55] MED LIST changes: -ACET-73 PO; -AMIN30LI66 PO; +AMIO400T5 PO; +ARIP5TAB10 NG; -BUME1TAB34 PO; -CALC-494 PO; +CLOT15CR5 TP; -DULO-79 PO; -ENOX30DI5 SQ; -IPRA3AMP23 IH; +MAG-55 PO; -NICO-676 TD; -OMEP20CA15 PO; +PANT40TA49 PO; +POVI1MED TP
[2025-01-03] MEDS: IV NS 0.9% 500 ML BAG IV ONE (16:35)
[2025-01-03 16:51] LABS: PLATELET COUNT (AUTO) 375 K/uL (150-450); RED BLOOD CELL COUNT(AUTO) 2.37 MIL/uL (4.5-6.0); RED CELL DISTRIBUTION WIDTH 19.5 % (11.5-15.0); WHITE BLOOD COUNT (AUTO) 7.6 K/uL (4.3-11.0)
[2025-01-03] MEDS ORDERED: NOREPINEPHRINE 8 MG in IV D5W 242 ML IV PRN (17:00)
[2025-01-03 17:01] LABS: CALCIUM, SERUM 8.2 mg/dL (8.5-10.1); CREATININE 3.2 mg/dL (0.6-1.3); SODIUM SERUM 132 mmol/L (136-145); UREA NITROGEN, BLOOD 34 mg/dL (7-18)
[2025-01-03] MEDS ORDERED: NOREPINEPHRINE 8MG/250ML RTU 0 ML IV ONE (17:03)
[2025-01-03 17:07] LABS: ASPARTATE AMINOTRANSFERASE 9 U/L (15-37); TOTAL PROTEIN, SERUM 5.9 g/dL (6.4-8.2)
[2025-01-03] MEDS ORDERED: ARIP5TAB10 PO (17:35)
[2025-01-03] MEDS ORDERED: PETR113O TP (17:35)
[2025-01-03 17:57] LABS: APPEARANCE,URINE SLIGHTLY CLOUDY (CLEAR); BLOOD, URINE NEGATIVE Ery/uL (NEGATIVE); LEUKOCYTE ESTERASE ,URINE TRACE (NEGATIVE); NITRITE, URINE NEGATIVE (NEGATIVE); UGLUCOSE NEGATIVE (NEGATIVE)
[2025-01-03 18:13] LABS: SQUAMOUS EPITHELIAL CELL,UR Few /HPF (None Seen)
[2025-01-03 18:14] LABS: URINE AMORPHOUS URATE Moderate /HPF (None Seen)
[2025-01-03 18:15] LABS: ADD URINE CULTURE YES
[2025-01-03 19:06] LABS: LYMPHOCYTES % (MANUAL) 4 % (16-48); MONOCYTES % (MANUAL) 5 % (0-11.0); NEUTROPHILS % (MANUAL) 91 (42-76)
[2025-01-03] MEDS ORDERED: VANCOMYCIN 1 GM /D5W 250 ML PB IV ONE (19:38)
[2025-01-03] MEDS: CEFTRIAXONE 1GM BAG (ER ONLY) 1 GM/50 ML PIGGYBACK IV ONE (20:00)
[2025-01-03] MEDS: VANCOMYCIN 1 GM in IV D5W 250 ML IV ONE (20:30)
[2025-01-03] MEDS ORDERED: Z GUARD REMEDY 4 OZ OINT TP PRN (21:00)
[2025-01-03] MEDS ORDERED: MAGNESIUM HYDROXIDE 30 ML UDC PO PRN (21:00)
[2025-01-03] MEDS ORDERED: MAG HYDROX/AL HYDROX/SIMETH 30 ML UDC PO PRN (21:00)
[2025-01-03] MEDS ORDERED: ONDANSETRON HCL/PF 4 MG/2 ML VIAL IVP PRN (21:00)
[2025-01-03] MEDS: SENNOSIDES 8.6 MG TABLET PO SCH (22:00)
[2025-01-03] MEDS: TAMSULOSIN 0.4 MG CAP.SR.24H PO SCH (22:00)
[2025-01-03 22:30] VITALS: BP 102/52; TEMP 97.7; O2SAT 97
[2025-01-03] MEDS: INSULIN REGULAR, HUMAN 100 UNIT/ML 3 ML VIAL SQ PRN (23:14)
[2025-01-03] MEDS: BLOOD SUGAR DIAGNOSTIC 1 EACH STRIP IN SCH (23:14)
[2025-01-04] VITALS (14 sets, daily range): BP systolic 94–138; BP diastolic 48–73; TEMP 95–98.2; O2SAT 94–100
[2025-01-04] MEDS ORDERED: METRONIDAZOLE 500MG/ NS 100ML 100 ML IV ONE ×2 (00:12→05:22)
[2025-01-04] MEDS: METRONIDAZOLE 500MG/ NS 100ML 500 MG in PREMIX 1 EA IV SCH (00:23)
[2025-01-04 07:15] LABS: PLATELET COUNT (AUTO) 369 K/uL (150-450); RED BLOOD CELL COUNT(AUTO) 2.74 MIL/uL (4.5-6.0); RED CELL DISTRIBUTION WIDTH 18.5 % (11.5-15.0); WHITE BLOOD COUNT (AUTO) 8.9 K/uL (4.3-11.0)
[2025-01-04] MEDS: FERROUS SULFATE (325 MG) 325 MG/TAB TABLET PO SCH (07:30)
[2025-01-04] MEDS: SEVELAMER CARBONATE 800 MG TABLET PO SCH (08:00)
[2025-01-04 08:07] LABS: CALCIUM, SERUM 8.5 mg/dL (8.5-10.1); CREATININE 3.4 mg/dL (0.6-1.3); PHOSPHORUS 5.3 mg/dL (2.5-4.9); SODIUM SERUM 132.0 mmol/L (136-145); UREA NITROGEN, BLOOD 37.0 mg/dL (7-18)
[2025-01-04] MEDS: DIVALPROEX SODIUM 250 MG TABLET.DR PO SCH (09:00)
[2025-01-04] MEDS ORDERED: OLANZAPINE 10 MG TABLET PO SCH (09:00)
[2025-01-04] MEDS: AMIODARONE HCL 200 MG TABLET PO SCH (09:00)
[2025-01-04] MEDS: ASCORBIC ACID 500 MG TABLET PO SCH (09:00)
[2025-01-04] MEDS: DOCUSATE SODIUM 100 MG CAPSULE PO SCH (09:00)
[2025-01-04] MEDS: ZINC SULFATE 220 MG CAPSULE PO SCH (09:00)
[2025-01-04] MEDS: ARIPIPRAZOLE 5 MG TABLET PO SCH (09:00)
[2025-01-04] MEDS: ACIDOPHILUS/BULGARICUS 1 EACH TAB.CHEW PO SCH (09:00)
[2025-01-04 09:17] LABS: INR 1.0 (0.91-1.10)
[2025-01-04] MEDS: PANTOPRAZOLE 40 MG VIAL IV SCH (10:03)
[2025-01-04] MEDS: MINERAL OIL 133 ML (PYXIS) 1 EA ENEMA RC ONE (13:00)
[2025-01-04] MEDS ORDERED: POLYETHYLENE GLYCOL 3350 17 GM POWD.PACK PO PRN (13:00)
[2025-01-04] MEDS: IPRATROPIUM NEB FS 0.5 MG/2.5 ML AMPUL.NEB NEB SCH (13:30)
[2025-01-04] MEDS: ACETYLCYSTEINE 10% SOLN 400 MG/4 ML VIAL NEB SCH (13:30)
[2025-01-04 14:34] LABS: ABG BASE EXCESS 1.8 mmol/L (-2.0-3.0); ABG OXYGEN SATURATION 88.5 % (94.0-98.0); ABG PCO2 85.8 mmHg (35.0-48.0); ABG PH 7.179 (7.350-7.450); ABG PO2 62.0 mmHg (83.0-108.0); ABG TOTAL HEMOGLOBIN 8.6 G/dL (13.5-17.5); FLOW, BLOOD GAS 4.00 L/min (0.00-30.00); FRACTIONATED INSPIRED OXYGEN 36.0 %; SITE, ABG RIGHT RADIAL
[2025-01-04] MEDS: ALBUTEROL HALF STRENGTH 1.25 MG/3 ML VIAL.NEB NEB SCH (15:06)
[2025-01-04] MEDS ORDERED: ALBUMIN 25% 25 GM in PREMIX 1 EA IV PRN (16:30)
[2025-01-04] MEDS: DEXTROSE 50%-WATER 50 ML DISP.SYRIN IV PRN (17:50)
[2025-01-04] MEDS ORDERED: IV NS 0.9% 250 ML IV PRN (18:00)
[2025-01-04] MEDS: CEFTRIAXONE 2 G in IV D5W 100 ML IV SCH (18:17)
[2025-01-04 18:26] LABS: ABG BASE EXCESS 2.7 mmol/L (-2.0-3.0); ABG OXYGEN SATURATION 97.6 % (94.0-98.0); ABG PCO2 61.0 mmHg (35.0-48.0); ABG PH 7.305 (7.350-7.450); ABG PO2 95.0 mmHg (83.0-108.0); ABG TOTAL HEMOGLOBIN 8.0 G/dL (13.5-17.5); FRACTIONATED INSPIRED OXYGEN 45.0 %; SET RATE, BG 14.0; SITE, ABG RIGHT BRACHIAL
[2025-01-04] MEDS ORDERED: CEFTRIAXONE 1 G in IV D5W 50 ML IV SCH (19:30)
[2025-01-04] MEDS ORDERED: DOSING PER PHARMACY-GENTAMICIN IV XX PRN (22:30)
[2025-01-05] VITALS (33 sets, daily range): BP systolic 96–148; BP diastolic 52–104; TEMP 97.5–98.3; O2SAT 88–100
[2025-01-05] MEDS: NS 0.9% IV ONE (00:03)
[2025-01-05] MEDS: GENTAMICIN IV ONE (00:03)
[2025-01-05] MEDS: GENTAMICIN 80 MG/2 ML VIAL ONE ×2 (00:44)
[2025-01-05] MEDS: IV 10% DEXTROSE 1,000 ML IV SCH (00:54)
[2025-01-05] MEDS: BLOOD SUGAR DIAGNOSTIC 1 EACH STRIP IN SCH (01:27)
[2025-01-05 04:58] LABS: PLATELET COUNT (AUTO) 331 K/uL (150-450); RED BLOOD CELL COUNT(AUTO) 2.59 MIL/uL (4.5-6.0); RED CELL DISTRIBUTION WIDTH 18.3 % (11.5-15.0); WHITE BLOOD COUNT (AUTO) 9.0 K/uL (4.3-11.0)
[2025-01-05] MEDS: METRONIDAZOLE 500MG/ NS 100ML 500 MG in PREMIX 1 EA IV SCH (05:00)
[2025-01-05 06:39] LABS: ASPARTATE AMINOTRANSFERASE 15.0 U/L (15-37); CALCIUM, SERUM 8.0 mg/dL (8.5-10.1); CREATININE 2.6 mg/dL (0.6-1.3); PHOSPHORUS 3.5 mg/dL (2.5-4.9); SODIUM SERUM 134.0 mmol/L (136-145); TOTAL PROTEIN, SERUM 6.3 g/dL (6.4-8.2); UREA NITROGEN, BLOOD 24.0 mg/dL (7-18)
[2025-01-05 09:12] LABS: ABG BASE EXCESS 1.9 mmol/L (-2.0-3.0); ABG OXYGEN SATURATION 86.3 % (94.0-98.0); ABG PCO2 71.4 mmHg (35.0-48.0); ABG PH 7.242 (7.350-7.450); ABG PO2 51.3 mmHg (83.0-108.0); ABG TOTAL HEMOGLOBIN 8.3 G/dL (13.5-17.5); FLOW, BLOOD GAS 2.00 L/min (0.00-30.00); FRACTIONATED INSPIRED OXYGEN 28.0 %; SITE, ABG RIGHT RADIAL
[2025-01-05] MEDS: DOXYCYCLINE 100 MG in IV D5W 100 ML IV SCH (09:54)
[2025-01-05] MEDS: DOCUSATE SODIUM LIQ 100 MG/10 ML UDC XX ONE (12:19)
[2025-01-05] MEDS: ACETAMINOPHEN 325 MG TABLET PO PRN (16:12)
[2025-01-06] VITALS (31 sets, daily range): BP systolic 106–150; BP diastolic 51–78; TEMP 97.4–98.4; O2SAT 94–100
[2025-01-06 04:53] LABS: PLATELET COUNT (AUTO) 288 K/uL (150-450); RED BLOOD CELL COUNT(AUTO) 2.20 MIL/uL (4.5-6.0); RED CELL DISTRIBUTION WIDTH 18.6 % (11.5-15.0); WHITE BLOOD COUNT (AUTO) 5.8 K/uL (4.3-11.0)
[2025-01-06 05:08] LABS: PHOSPHORUS 2.4 mg/dL (2.5-4.9)
[2025-01-06 06:08] LABS: EOSINOPHILS % (MANUAL) 3 % (0-4); LYMPHOCYTES % (MANUAL) 6 % (16-48); MONOCYTES % (MANUAL) 10 % (0-11.0); NEUTROPHILS % (MANUAL) 81 (42-76); PLATELET ESTIMATE ADEQUATE
[2025-01-06 09:05] LABS: ABG BASE EXCESS 0.6 mmol/L (-2.0-3.0); ABG OXYGEN SATURATION 91.2 % (94.0-98.0); ABG PCO2 56.6 mmHg (35.0-48.0); ABG PH 7.303 (7.350-7.450); ABG PO2 60.7 mmHg (83.0-108.0); ABG TOTAL HEMOGLOBIN 8.8 G/dL (13.5-17.5); FLOW, BLOOD GAS 3.00 L/min (0.00-30.00); FRACTIONATED INSPIRED OXYGEN 32.0 %; SITE, ABG RIGHT RADIAL
[2025-01-06 09:24] LABS: CALCIUM, SERUM 7.9 mg/dL (8.5-10.1); CREATININE 2.1 mg/dL (0.6-1.3); SODIUM SERUM 135.0 mmol/L (136-145); UREA NITROGEN, BLOOD 14.0 mg/dL (7-18)
[2025-01-06] MEDS: MAGNESIUM OXIDE 400 MG TABLET PO ONE (11:00)
[2025-01-06] MEDS: DOCUSATE SODIUM LIQ 100 MG/10 ML UDC PO ONE (14:00)
[2025-01-06] MEDS: NEO/POLY-B/DEXAM OPHTH SUSP 5 ML BOTTLE OP SCH (14:00)
[2025-01-06] MEDS: EPOETIN ALFA (10,000 UNIT) 10,000 UNIT/ML VIAL SQ SCH (15:39)
[2025-01-06] MEDS: METRONIDAZOLE 500 MG TABLET PO SCH (21:22)
[2025-01-06] MEDS ORDERED: NS 0.9% IV SCH (23:00)
[2025-01-06] MEDS ORDERED: GENTAMICIN IV SCH (23:00)
[2025-01-07] VITALS (31 sets, daily range): BP systolic 103–151; BP diastolic 47–80; TEMP 97.3–97.8; O2SAT 91–100
[2025-01-07 05:12] LABS: PLATELET COUNT (AUTO) 242 K/uL (150-450); RED BLOOD CELL COUNT(AUTO) 2.46 MIL/uL (4.5-6.0); RED CELL DISTRIBUTION WIDTH 18.4 % (11.5-15.0); WHITE BLOOD COUNT (AUTO) 5.1 K/uL (4.3-11.0)
[2025-01-07 05:25] LABS: CALCIUM, SERUM 8.0 mg/dL (8.5-10.1); CREATININE 2.3 mg/dL (0.6-1.3); SODIUM SERUM 133.0 mmol/L (136-145); UREA NITROGEN, BLOOD 19.0 mg/dL (7-18)
[2025-01-07 05:28] LABS: PHOSPHORUS 3.1 mg/dL (2.5-4.9)
[2025-01-07 05:43] LABS: GENTAMICIN,TROUGH 2.4 ug/ml (0.2-2.0)
[2025-01-07] MEDS: PANTOPRAZOLE 40 MG TABLET.DR PO SCH (09:15)
[2025-01-07] MEDS: MAGNESIUM OXIDE 400 MG TABLET PO ONE (10:00)
[2025-01-07] MEDS: GENTAMICIN 120 MG in IV D5W 100 ML IV PRN (16:53)
[2025-01-08] VITALS (28 sets, daily range): BP systolic 87–143; BP diastolic 51–75; TEMP 97.6–98.6; O2SAT 90–100
[2025-01-08 04:54] LABS: PLATELET COUNT (AUTO) 216 K/uL (150-450); RED BLOOD CELL COUNT(AUTO) 2.41 MIL/uL (4.5-6.0); RED CELL DISTRIBUTION WIDTH 18.1 % (11.5-15.0); WHITE BLOOD COUNT (AUTO) 4.2 K/uL (4.3-11.0)
[2025-01-08 05:08] LABS: CALCIUM, SERUM 7.6 mg/dL (8.5-10.1); CREATININE 1.7 mg/dL (0.6-1.3); PHOSPHORUS 3.1 mg/dL (2.5-4.9); SODIUM SERUM 131.0 mmol/L (136-145); UREA NITROGEN, BLOOD 13.0 mg/dL (7-18)
[2025-01-08 05:19] LABS: BASOPHILS % (MANUAL) 0 % (0.0-2.0); EOSINOPHILS % (MANUAL) 1 % (0-4); LYMPHOCYTES % (MANUAL) 10 % (16-48); MONOCYTES % (MANUAL) 14 % (0-11.0); NEUTROPHILS % (MANUAL) 79 (42-76); PLATELET ESTIMATE ADEQUATE
[2025-01-08] MEDS: DOXYCYCLINE HYCLATE (100 MG) 100 MG TABLET PO SCH (08:21)
[2025-01-08 09:32] LABS: CALCIUM, SERUM 7.8 mg/dL (8.5-10.1); CREATININE 1.8 mg/dL (0.6-1.3); SODIUM SERUM 129.0 mmol/L (136-145); UREA NITROGEN, BLOOD 13.0 mg/dL (7-18)
[2025-01-08] MEDS ORDERED: MAGNESIUM OXIDE 400 MG TABLET PO ONE (10:00)
[2025-01-08] MEDS: Magnesium 1GM/D5W 100ML PREMIX 100 ML IV SCH (11:30)
[2025-01-08 12:33] LABS: ABG BASE EXCESS 2.6 mmol/L (-2.0-3.0); ABG OXYGEN SATURATION 98.3 % (94.0-98.0); ABG PCO2 59.8 mmHg (35.0-48.0); ABG PH 7.310 (7.350-7.450); ABG PO2 114.6 mmHg (83.0-108.0); ABG TOTAL HEMOGLOBIN 7.7 G/dL (13.5-17.5); FRACTIONATED INSPIRED OXYGEN 45.0 %; SET RATE, BG 14.0; SITE, ABG LEFT RADIAL
[2025-01-08] MEDS: BLOOD SUGAR DIAGNOSTIC 1 EACH STRIP IN SCH (13:15)
[2025-01-09] VITALS (37 sets, daily range): BP systolic 108–156; BP diastolic 52–81; TEMP 98.1–98.8; O2SAT 92–100
[2025-01-09 04:42] LABS: PLATELET COUNT (AUTO) 205 K/uL (150-450); RED BLOOD CELL COUNT(AUTO) 2.43 MIL/uL (4.5-6.0); RED CELL DISTRIBUTION WIDTH 18.5 % (11.5-15.0); WHITE BLOOD COUNT (AUTO) 4.4 K/uL (4.3-11.0)
[2025-01-09 05:08] LABS: CALCIUM, SERUM 8.2 mg/dL (8.5-10.1); CREATININE 2.2 mg/dL (0.6-1.3); PHOSPHORUS 3.4 mg/dL (2.5-4.9); SODIUM SERUM 132.0 mmol/L (136-145); UREA NITROGEN, BLOOD 15.0 mg/dL (7-18)
[2025-01-09 08:18] LABS: CALCIUM, SERUM 7.8 mg/dL (8.5-10.1); CREATININE 2.1 mg/dL (0.6-1.3); SODIUM SERUM 128.0 mmol/L (136-145); UREA NITROGEN, BLOOD 16.0 mg/dL (7-18)
[2025-01-09 08:56] LABS: ABG BASE EXCESS 2.4 mmol/L (-2.0-3.0); ABG OXYGEN SATURATION 92.5 % (94.0-98.0); ABG PCO2 63.2 mmHg (35.0-48.0); ABG PH 7.289 (7.350-7.450); ABG PO2 65.3 mmHg (83.0-108.0); ABG TOTAL HEMOGLOBIN 8.1 G/dL (13.5-17.5); FLOW, BLOOD GAS 2.00 L/min (0.00-30.00); FRACTIONATED INSPIRED OXYGEN 28.0 %; SITE, ABG LEFT RADIAL
[2025-01-10] VITALS (22 sets, daily range): BP systolic 116–158; BP diastolic 54–103; TEMP 97.8–98.6; O2SAT 91–100
[2025-01-10 04:20] LABS: PLATELET COUNT (AUTO) 152 K/uL (150-450); RED BLOOD CELL COUNT(AUTO) 2.49 MIL/uL (4.5-6.0); RED CELL DISTRIBUTION WIDTH 18.2 % (11.5-15.0); WHITE BLOOD COUNT (AUTO) 4.3 K/uL (4.3-11.0)
[2025-01-10 04:30] LABS: CALCIUM, SERUM 7.8 mg/dL (8.5-10.1); CREATININE 1.8 mg/dL (0.6-1.3); PHOSPHORUS 3.2 mg/dL (2.5-4.9); SODIUM SERUM 130.0 mmol/L (136-145); UREA NITROGEN, BLOOD 12.0 mg/dL (7-18)
[2025-01-10 08:19] LABS: ABG BASE EXCESS 1.3 mmol/L (-2.0-3.0); ABG OXYGEN SATURATION 92.8 % (94.0-98.0); ABG PCO2 62.0 mmHg (35.0-48.0); ABG PH 7.281 (7.350-7.450); ABG PO2 66.7 mmHg (83.0-108.0); ABG TOTAL HEMOGLOBIN 8.2 G/dL (13.5-17.5); FLOW, BLOOD GAS 2.00 L/min (0.00-30.00); FRACTIONATED INSPIRED OXYGEN 28.0 %
[2025-01-10 08:54] LABS: CALCIUM, SERUM 8.3 mg/dL (8.5-10.1); CREATININE 2.0 mg/dL (0.6-1.3); SODIUM SERUM 131.0 mmol/L (136-145); UREA NITROGEN, BLOOD 11.0 mg/dL (7-18)
[2025-01-10] MEDS: NEO/POLY-B/DEXAM OPHTH SUSP 5 ML BOTTLE OT SCH (09:49)
[2025-01-11] VITALS (11 sets, daily range): BP systolic 118–149; BP diastolic 66–90; TEMP 97.2–98.2; O2SAT 96–100
[2025-01-11 07:55] LABS: RED BLOOD CELL COUNT(AUTO) 2.54 MIL/uL (4.5-6.0); WHITE BLOOD COUNT (AUTO) 3.0 K/uL (4.3-11.0)
[2025-01-11 07:56] LABS: PLATELET COUNT (AUTO) 125 K/uL (150-450); RED CELL DISTRIBUTION WIDTH 17.7 % (11.5-15.0)
[2025-01-11 10:56] LABS: EOSINOPHILS % (MANUAL) 5 % (0-4); LYMPHOCYTES % (MANUAL) 11 % (16-48); MONOCYTES % (MANUAL) 12 % (0-11.0); NEUTROPHILS % (MANUAL) 72 (42-76)
[2025-01-11 10:57] LABS: PLATELET ESTIMATE DECREASED
[2025-01-11 11:12] LABS: ASPARTATE AMINOTRANSFERASE 12.0 U/L (15-37); CALCIUM, SERUM 8.0 mg/dL (8.5-10.1); CREATININE 2.1 mg/dL (0.6-1.3); PHOSPHORUS 3.7 mg/dL (2.5-4.9); SODIUM SERUM 130.0 mmol/L (136-145); UREA NITROGEN, BLOOD 14.0 mg/dL (7-18)
[2025-01-11 11:13] LABS: TOTAL PROTEIN, SERUM 5.4 g/dL (6.4-8.2)
[2025-01-12] VITALS (13 sets, daily range): BP systolic 128–145; BP diastolic 58–69; TEMP 97.3–98.7; O2SAT 94–100
[2025-01-12 06:38] LABS: PLATELET COUNT (AUTO) 142 K/uL (150-450); RED BLOOD CELL COUNT(AUTO) 2.53 MIL/uL (4.5-6.0); RED CELL DISTRIBUTION WIDTH 17.6 % (11.5-15.0); WHITE BLOOD COUNT (AUTO) 3.1 K/uL (4.3-11.0)
[2025-01-12 06:49] LABS: CALCIUM, SERUM 8.3 mg/dL (8.5-10.1); CREATININE 1.9 mg/dL (0.6-1.3); PHOSPHORUS 3.1 mg/dL (2.5-4.9); SODIUM SERUM 133.0 mmol/L (136-145); UREA NITROGEN, BLOOD 9.0 mg/dL (7-18)
[2025-01-12] MEDS: MAGNESIUM OXIDE 400 MG TABLET PO ONE (10:42)
[2025-01-12 14:48] LABS: ABG BASE EXCESS 1.6 mmol/L (-2.0-3.0); ABG OXYGEN SATURATION 90.6 % (94.0-98.0); ABG PCO2 55.8 mmHg (35.0-48.0); ABG PH 7.321 (7.350-7.450); ABG PO2 58.5 mmHg (83.0-108.0); ABG TOTAL HEMOGLOBIN 8.1 G/dL (13.5-17.5); FRACTIONATED INSPIRED OXYGEN 28.0 %
[2025-01-13] VITALS (14 sets, daily range): BP systolic 129–152; BP diastolic 59–77; TEMP 97.3–98.7; O2SAT 95–99
[2025-01-13] MEDS ORDERED: NEOM10DR11 EACH EAR (11:00)
== END 2025-01-13 21:49 | DRG 371 ==
LOC: ER 15:59 → TELE 22:00 → ICU 01-04 14:57 → TELE-TD 01-09 09:04 → ICU 01-09 09:53 → TELE1 01-10 12:14 → MEDSG1 01-12 09:29
PROVIDERS: ATTEND Nurse Practitioner Family
PROC: 30233N1 Transfusion of Nonautologous Red Blood Cells into Peripheral Vein, Percutaneous Approach (ICD-10-PCS; principal; 2025-01-03)
PROC: 5A09357 Assistance with Respiratory Ventilation, Less than 24 Consecutive Hours, Continuous Positive Airway Pressure (ICD-10-PCS; 2025-01-04)
PROC: 5A1D70Z Performance of Urinary Filtration, Intermittent, Less than 6 Hours Per Day (ICD-10-PCS; 2025-01-04)
PROC: 5A09357 Assistance with Respiratory Ventilation, Less than 24 Consecutive Hours, Continuous Positive Airway Pressure (ICD-10-PCS; 2025-01-06)
DX: A04.9 Bacterial intestinal infection, unspecified (principal); E43 Unspecified severe protein-calorie malnutrition; J18.9 Pneumonia, unspecified organism; G93.41 Metabolic encephalopathy; N18.6 End stage renal disease; I50.33 Acute on chronic diastolic (congestive) heart failure; J96.01 Acute respiratory failure with hypoxia; E66.2 Morbid (severe) obesity with alveolar hypoventilation; N39.0 Urinary tract infection, site not specified; D62 Acute posthemorrhagic anemia; E87.1 Hypo-osmolality and hyponatremia; J90 Pleural effusion, not elsewhere classified; J98.11 Atelectasis; I96 Gangrene, not elsewhere classified; E11.52 Type 2 diabetes mellitus with diabetic peripheral angiopathy with gangrene; J44.0 Chronic obstructive pulmonary disease with (acute) lower respiratory infection; I13.2 Hypertensive heart and chronic kidney disease with heart failure and with stage 5 chronic kidney disease, or end stage renal disease; K59.00 Constipation, unspecified; D64.9 Anemia, unspecified; E78.5 Hyperlipidemia, unspecified; F31.9 Bipolar disorder, unspecified; I48.91 Unspecified atrial fibrillation; Z79.4 Long term (current) use of insulin; Z87.440 Personal history of urinary (tract) infections; Z99.2 Dependence on renal dialysis; J32.2 Chronic ethmoidal sinusitis; J32.1 Chronic frontal sinusitis; N40.1 Benign prostatic hyperplasia with lower urinary tract symptoms; L89.156 Pressure-induced deep tissue damage of sacral region; E88.09 Other disorders of plasma-protein metabolism, not elsewhere classified; E11.22 Type 2 diabetes mellitus with diabetic chronic kidney disease; E83.9 Disorder of mineral metabolism, unspecified; Z68.39 Body mass index [BMI] 39.0-39.9, adult; L98.8 Other specified disorders of the skin and subcutaneous tissue; H60.93 Unspecified otitis externa, bilateral; H61.23 Impacted cerumen, bilateral; H91.8X3 Other specified hearing loss, bilateral; E11.649 Type 2 diabetes mellitus with hypoglycemia without coma; K62.89 Other specified diseases of anus and rectum
CPT/HCPCS: 36415; 36600; 70450-TC; 71045-TC; 71250-TC; 76604-TC; 80048-TC; 80053-TC; 80076-TC; 80170-TC; 81001; 82140-TC; 82607-TC; 82803-TC; 82962-TC; 83605-TC; 83735-TC; 84100-TC; 84484-TC; 85025-TC; 85027-TC; 85610-TC; 86850-TC; 87040-TC; 87081-TC; 87086-TC; 90935-TC; 92526; 92611; 94760-TC; 94799-TC; 97110-TC; 97116-TC; 97530-TC; A4216; A4223; G0378; J0696; J0885; J1580; J1815; J2470; J3373; J3475; J3490; J7030; J7040; J7050; J7060; P9016; P9047

== ENCOUNTER 2025-03-20 10:35 | Inpatient (IN) | payer MEDICARE, OTHER ==
[~2025-03-20] VITALS: Ht 188 cm; Wt 82.1 kg
[~2025-03-20 10:35] MED LIST changes: -ARIP5TAB10 NG; +ARIP5TAB10 PO; -CLOT15CR5 TP; -FIDA200T PO; -MAGN400O6 PO; -METR-147 PO; +NEOM10DR11 EACH EAR; +PETR113O TP
[2025-03-20 11:44] LABS: PLATELET COUNT (AUTO) 341 K/uL (150-450); RED BLOOD CELL COUNT(AUTO) 3.59 MIL/uL (4.5-6.0); RED CELL DISTRIBUTION WIDTH 19.5 % (11.5-15.0); WHITE BLOOD COUNT (AUTO) 5.0 K/uL (4.3-11.0)
[2025-03-20 11:51] LABS: CALCIUM, SERUM 8.8 mg/dL (8.5-10.1); CREATININE 3.7 mg/dL (0.6-1.3); SODIUM SERUM 138.0 mmol/L (136-145); UREA NITROGEN, BLOOD 55.0 mg/dL (7-18)
[2025-03-20] MEDS ORDERED: AIRSUPRA IH (11:52)
[2025-03-20] MEDS ORDERED: SPIR25TA6 PO (11:52)
[2025-03-20] MEDS ORDERED: FOLI0.8T2 PO (11:52)
[2025-03-20] MEDS ORDERED: OMEP20CA15 PO (11:52)
[2025-03-20] MEDS ORDERED: BISM262O28 PO (11:52)
[2025-03-20] MEDS ORDERED: NIFE90TA61 PO (11:52)
[2025-03-20] MEDS ORDERED: EPOE1VIA12 SQ (11:52)
[2025-03-20] MEDS ORDERED: MAGN400O6 PO (11:52)
[2025-03-20] MEDS ORDERED: DEXTROSE 50%-WATER 50 ML DISP.SYRIN ONE (12:18)
[2025-03-20] MEDS ORDERED: CALCIUM CHLORIDE 1,000 MG/10 ML DISP.SYRIN ONE (12:18)
[2025-03-20] MEDS ORDERED: SODIUM BICARBONATE SYR 50 MEQ/50 ML DISP.SYRIN ONE (12:18)
[2025-03-20] MEDS ORDERED: INSULIN REGULAR, HUMAN 100 UNIT/ML 10 ML VIAL ONE (12:19)
[2025-03-20] MEDS ORDERED: SODIUM ZIRCONIUM CYCLOSILICATE 10 GM POWD.PACK ONE (12:19)
[2025-03-20] MEDS: CALCIUM CHLORIDE 1,000 MG/10 ML DISP.SYRIN IV ONE (12:36)
[2025-03-20] MEDS: INSULIN REGULAR, HUMAN 100 UNIT/ML 10 ML VIAL IV ONE (12:37)
[2025-03-20] MEDS: SODIUM ZIRCONIUM CYCLOSILICATE 10 GM POWD.PACK PO ONE (12:38)
[2025-03-20] MEDS: SODIUM BICARBONATE SYR 50 MEQ/50 ML DISP.SYRIN IV ONE (12:38)
[2025-03-20] MEDS: DEXTROSE 50%-WATER 50 ML DISP.SYRIN IV ONE (12:38)
[2025-03-20] MEDS ORDERED: ALBUTEROL FS 2.5 MG/3 ML VIAL.NEB ONE (12:45)
[2025-03-20 12:50] VITALS: O2SAT 99
[2025-03-20] MEDS: ALBUTEROL FS 2.5 MG/3 ML VIAL.NEB NEB ONE (12:53)
[2025-03-20] MEDS ORDERED: MAG HYDROX/AL HYDROX/SIMETH 30 ML UDC PO PRN (13:30)
[2025-03-20] MEDS ORDERED: ACETAMINOPHEN 325 MG TABLET PO PRN ×2 (13:30)
[2025-03-20] MEDS ORDERED: NA PHOS,M-B/NA PHOS,DI-BA 1 EA ENEMA RC PRN (13:30)
[2025-03-20] MEDS ORDERED: Z GUARD REMEDY 4 OZ OINT TP PRN (13:30)
[2025-03-20] MEDS ORDERED: ONDANSETRON HCL/PF 4 MG/2 ML VIAL IVP PRN (13:30)
[2025-03-20] MEDS ORDERED: MAGNESIUM HYDROXIDE 30 ML UDC PO PRN ×2 (13:30)
[2025-03-20] MEDS: SEVELAMER CARBONATE 800 MG TABLET PO SCH (16:30)
[2025-03-20] MEDS: DOXAZOSIN MESYLATE (1 MG) 1 MG TABLET PO SCH (17:00)
[2025-03-20] MEDS: DOCUSATE SODIUM 100 MG CAPSULE PO SCH (17:00)
[2025-03-20] MEDS: DIVALPROEX SODIUM 250 MG TABLET.DR PO SCH (17:00)
[2025-03-20] MEDS: BLOOD SUGAR DIAGNOSTIC 1 EACH STRIP VI SCH (17:50)
[2025-03-20] MEDS: INSULIN REGULAR, HUMAN 100 UNIT/ML 3 ML VIAL SQ PRN (17:51)
[2025-03-20 20:00] VITALS: BP_SYST 159; BP_SYST 173; BP_DIAS 76; BP_DIAS 78; TEMP 98.1; O2SAT 98
[2025-03-20] MEDS: SENNOSIDES 8.6 MG TABLET PO SCH (21:09)
[2025-03-20] MEDS: TRAZODONE 50 MG TABLET PO SCH (21:09)
[2025-03-20] MEDS: ATORVASTATIN 40 MG TABLET PO SCH (21:09)
[2025-03-20] MEDS: TAMSULOSIN 0.4 MG CAP.SR.24H PO SCH (21:09)
[2025-03-21] VITALS (7 sets, daily range): BP systolic 122–158; BP diastolic 73–89; TEMP 97.6–99; O2SAT 94–100
[2025-03-21 05:53] LABS: PLATELET COUNT (AUTO) 330 K/uL (150-450); RED BLOOD CELL COUNT(AUTO) 3.38 MIL/uL (4.5-6.0); RED CELL DISTRIBUTION WIDTH 19.6 % (11.5-15.0); WHITE BLOOD COUNT (AUTO) 5.0 K/uL (4.3-11.0)
[2025-03-21 06:07] LABS: CALCIUM, SERUM 8.7 mg/dL (8.5-10.1); CREATININE 3.6 mg/dL (0.6-1.3); PHOSPHORUS 4.8 mg/dL (2.5-4.9); UREA NITROGEN, BLOOD 57.0 mg/dL (7-18)
[2025-03-21 06:15] LABS: SODIUM SERUM 138.0 mmol/L (136-145)
[2025-03-21] MEDS: ASPIRIN EC 81 MG TABLET.DR PO SCH (08:37)
[2025-03-21] MEDS: PANTOPRAZOLE 40 MG TABLET.DR PO SCH (08:37)
[2025-03-21] MEDS: NIFEdipine XL (30MG) 30 MG TAB PO SCH (08:38)
[2025-03-21] MEDS: ALLOPURINOL 100 MG TABLET PO SCH (08:38)
[2025-03-21] MEDS: SPIRONOLACTONE 25 MG TABLET PO SCH (08:39)
[2025-03-21] MEDS: SODIUM ZIRCONIUM CYCLOSILICATE 10 GM POWD.PACK PO ONE (10:48)
[2025-03-21] MEDS: ALTEPLASE CATHFLO 2 MG/VIAL XX STA (16:44)
[2025-03-21] MEDS: *INSULIN REGULAR(HUMULIN R)HUM 100 UNIT/ML VIAL SQ PRN (21:21)
[2025-03-22] VITALS: BP 143/85; TEMP 98.1; O2SAT 100
[2025-03-22 04:00] VITALS: BP 133/79; TEMP 98.1; O2SAT 100
[2025-03-22 07:46] LABS: PLATELET COUNT (AUTO) 316 K/uL (150-450); RED BLOOD CELL COUNT(AUTO) 3.52 MIL/uL (4.5-6.0); RED CELL DISTRIBUTION WIDTH 19.3 % (11.5-15.0); WHITE BLOOD COUNT (AUTO) 4.6 K/uL (4.3-11.0)
[2025-03-22 07:52] LABS: ASPARTATE AMINOTRANSFERASE 25.0 U/L (15-37); CALCIUM, SERUM 8.7 mg/dL (8.5-10.1); CREATININE 3.0 mg/dL (0.6-1.3); PHOSPHORUS 4.8 mg/dL (2.5-4.9); TOTAL PROTEIN, SERUM 7.1 g/dL (6.4-8.2); UREA NITROGEN, BLOOD 40.0 mg/dL (7-18)
[2025-03-22 07:56] LABS: SODIUM SERUM 136.0 mmol/L (136-145)
[2025-03-22 08:00] VITALS: BP 142/87; TEMP 98.2; O2SAT 98
[2025-03-22] MEDS: SODIUM ZIRCONIUM CYCLOSILICATE 10 GM POWD.PACK PO SCH (09:30)
[2025-03-22 09:54] LABS: EOSINOPHILS % (MANUAL) 19 % (0-4); LYMPHOCYTES % (MANUAL) 17 % (16-48); MONOCYTES % (MANUAL) 8 % (0-11.0); NEUTROPHILS % (MANUAL) 56 (42-76); PLATELET ESTIMATE ADEQUATE
[2025-03-22 16:00] VITALS: BP 144/101; TEMP 97.9; O2SAT 97
[2025-03-22 17:25] LABS: CALCIUM, SERUM 8.2 mg/dL (8.5-10.1); CREATININE 1.4 mg/dL (0.6-1.3); SODIUM SERUM 139.0 mmol/L (136-145); UREA NITROGEN, BLOOD 13.0 mg/dL (7-18)
[2025-03-22 20:00] VITALS: BP 151/100; TEMP 98.4; O2SAT 96
[2025-03-23] VITALS: BP 151/87; TEMP 98.3; O2SAT 97
[2025-03-23] MEDS: HYDROCODONE/APAP 5/325MG TABLET PO PRN (02:21)
[2025-03-23 04:00] VITALS: BP 148/84; TEMP 98.1; O2SAT 97
[2025-03-23 09:58] LABS: PLATELET COUNT (AUTO) 269 K/uL (150-450); RED BLOOD CELL COUNT(AUTO) 3.71 MIL/uL (4.5-6.0); RED CELL DISTRIBUTION WIDTH 19.3 % (11.5-15.0); WHITE BLOOD COUNT (AUTO) 5.0 K/uL (4.3-11.0)
[2025-03-23 11:01] LABS: ASPARTATE AMINOTRANSFERASE 32.0 U/L (15-37); CALCIUM, SERUM 8.6 mg/dL (8.5-10.1); CREATININE 2.6 mg/dL (0.6-1.3); PHOSPHORUS 4.7 mg/dL (2.5-4.9); SODIUM SERUM 137.0 mmol/L (136-145); TOTAL PROTEIN, SERUM 7.0 g/dL (6.4-8.2); UREA NITROGEN, BLOOD 28.0 mg/dL (7-18)
[2025-03-23] MEDS: DEXTROSE 50%-WATER 50 ML DISP.SYRIN IV PRN (11:27)
[2025-03-23 13:00] VITALS: BP 139/82
== END 2025-03-23 17:56 | DRG 640 ==
LOC: ER 10:40 → TELE 13:47 → MED 03-23 10:29
PROVIDERS: ADMIT Internal Medicine; ATTEND Internal Medicine
PROC: 5A1D70Z Performance of Urinary Filtration, Intermittent, Less than 6 Hours Per Day (ICD-10-PCS; principal; 2025-03-21)
DX: E87.5 Hyperkalemia (principal); N18.6 End stage renal disease; F20.0 Paranoid schizophrenia; J96.10 Chronic respiratory failure, unspecified whether with hypoxia or hypercapnia; I13.2 Hypertensive heart and chronic kidney disease with heart failure and with stage 5 chronic kidney disease, or end stage renal disease; G40.909 Epilepsy, unspecified, not intractable, without status epilepticus; I48.91 Unspecified atrial fibrillation; E11.22 Type 2 diabetes mellitus with diabetic chronic kidney disease; E78.5 Hyperlipidemia, unspecified; I50.9 Heart failure, unspecified; J44.9 Chronic obstructive pulmonary disease, unspecified; Z99.2 Dependence on renal dialysis; I25.2 Old myocardial infarction; R26.9 Unspecified abnormalities of gait and mobility; K21.9 Gastro-esophageal reflux disease without esophagitis; N40.0 Benign prostatic hyperplasia without lower urinary tract symptoms; F31.9 Bipolar disorder, unspecified; F41.9 Anxiety disorder, unspecified; E11.40 Type 2 diabetes mellitus with diabetic neuropathy, unspecified; Z79.899 Other long term (current) drug therapy; Z91.119 Patient's noncompliance with dietary regimen due to unspecified reason; Z88.8 Allergy status to other drugs, medicaments and biological substances; D63.8 Anemia in other chronic diseases classified elsewhere; M10.9 Gout, unspecified; Z79.4 Long term (current) use of insulin; Z79.82 Long term (current) use of aspirin; G89.29 Other chronic pain; Z87.09 Personal history of other diseases of the respiratory system; M89.8X9 Other specified disorders of bone, unspecified site
CPT/HCPCS: 36415; 80048-TC; 80053-TC; 82962-TC; 83735-TC; 84100-TC; 85025-TC; 85027-TC; 87081-TC; 90935-TC; G0378; J1815; J2997; J3490; J7030

== ENCOUNTER 2025-05-31 21:51 | Inpatient (IN) | payer MEDICARE, OTHER ==
[~2025-05-31] VITALS: Ht 205.7 cm; Wt 90.7 kg
[~2025-05-31 21:51] MED LIST changes: +AIRSUPRA IH; -ALBU18HF2 IH; -AMIO400T5 PO; -AMLO-213 PO; -ARIP5TAB10 PO; -BISA10SU11 RC; +BISM262O28 PO; -CLON0.1T PO; +EPOE1VIA12 SQ; -EPOE200011 SQ; +FOLI0.8T2 PO; -MAG-55 PO; +MAGN400O6 PO; -MULT-213 PO; -NEOM10DR11 EACH EAR; +NIFE90TA61 PO; -OLAN10TA3 PO; +OMEP20CA15 PO; -PANT40TA49 PO; -PETR113O TP; -POVI1MED TP; +SPIR25TA6 PO; -ZINC1CAP2 PO
[2025-05-31 22:44] LABS: CALCIUM, SERUM 8.5 mg/dL (8.5-10.1); CREATININE 4.4 mg/dL (0.6-1.3); SODIUM SERUM 139 mmol/L (136-145); UREA NITROGEN, BLOOD 55 mg/dL (7-18)
[2025-05-31 22:49] LABS: PLATELET COUNT (AUTO) 257 K/uL (150-450); RED BLOOD CELL COUNT(AUTO) 3.85 MIL/uL (4.5-6.0); RED CELL DISTRIBUTION WIDTH 15.5 % (11.5-15.0); WHITE BLOOD COUNT (AUTO) 4.5 K/uL (4.3-11.0)
[2025-05-31 22:52] LABS: INR 0.99 (0.91-1.10)
[2025-05-31 22:57] LABS: ASPARTATE AMINOTRANSFERASE 25 U/L (15-37); NT-PRO BNP 842 pg/mL (0-125); TOTAL PROTEIN, SERUM 7.7 g/dL (6.4-8.2)
[2025-05-31 23:42] LABS: EOSINOPHILS % (MANUAL) 3 % (0-4); MONOCYTES % (MANUAL) 9 % (0-11.0); NEUTROPHILS % (MANUAL) 70 (42-76)
[2025-05-31 23:43] LABS: LYMPHOCYTES % (MANUAL) 18 % (16-48); PLATELET ESTIMATE ADEQUATE
[2025-06-01] VITALS (9 sets, daily range): BP systolic 144–181; BP diastolic 77–93; TEMP 97.9–98.6; O2SAT 97–99
[2025-06-01] MEDS ORDERED: Z GUARD REMEDY 4 OZ OINT TP PRN (01:00)
[2025-06-01] MEDS ORDERED: HYDROCODONE/APAP 5/325MG TABLET PO PRN (01:00)
[2025-06-01] MEDS ORDERED: MAG HYDROX/AL HYDROX/SIMETH 30 ML UDC PO PRN (01:00)
[2025-06-01] MEDS ORDERED: ONDANSETRON HCL/PF 4 MG/2 ML VIAL IVP PRN (01:00)
[2025-06-01] MEDS ORDERED: MAGNESIUM HYDROXIDE 30 ML UDC PO PRN (01:00)
[2025-06-01] MEDS ORDERED: ACETAMINOPHEN 325 MG TABLET PO PRN (01:00)
[2025-06-01] MEDS ORDERED: ALBUTEROL FS 2.5 MG/3 ML VIAL.NEB NEB PRN (01:30)
[2025-06-01] MEDS ORDERED: IPRATROPIUM NEB FS 0.5 MG/2.5 ML AMPUL.NEB NEB PRN (01:30)
[2025-06-01] MEDS ORDERED: DEXTROSE 50%-WATER 50 ML DISP.SYRIN IV PRN (01:30)
[2025-06-01] MEDS: BLOOD SUGAR DIAGNOSTIC 1 EACH STRIP IN SCH (06:59)
[2025-06-01] MEDS: INSULIN REGULAR, HUMAN 100 UNIT/ML 3 ML VIAL SQ PRN (07:00)
[2025-06-01] MEDS: PANTOPRAZOLE 40 MG TABLET.DR PO SCH (09:00)
[2025-06-01] MEDS: IPRATROPIUM NEB FS 0.5 MG/2.5 ML AMPUL.NEB NEB SCH (11:00)
[2025-06-01] MEDS: ALBUTEROL HALF STRENGTH 1.25 MG/3 ML VIAL.NEB NEB SCH (11:00)
[2025-06-01] MEDS: hydrALAZINE HCL IV 20 MG VIAL IV PRN (21:19)
[2025-06-02] VITALS (12 sets, daily range): BP systolic 135–190; BP diastolic 80–89; TEMP 97.3–97.9; O2SAT 98–100
[2025-06-02 08:16] LABS: PLATELET COUNT (AUTO) 251 K/uL (150-450); RED BLOOD CELL COUNT(AUTO) 3.56 MIL/uL (4.5-6.0); RED CELL DISTRIBUTION WIDTH 15.6 % (11.5-15.0); WHITE BLOOD COUNT (AUTO) 5.7 K/uL (4.3-11.0)
[2025-06-02 08:35] LABS: CALCIUM, SERUM 8.9 mg/dL (8.5-10.1); CREATININE 4.4 mg/dL (0.6-1.3); PHOSPHORUS 4.8 mg/dL (2.5-4.9); SODIUM SERUM 138.0 mmol/L (136-145); UREA NITROGEN, BLOOD 73.0 mg/dL (7-18)
[2025-06-02 09:55] LABS: LDL 36.0 mg/dL (0-99)
[2025-06-02] MEDS: SODIUM ZIRCONIUM CYCLOSILICATE 10 GM POWD.PACK PO ONE (11:03)
[2025-06-02] MEDS ORDERED: PRED20TA PO (11:40)
[2025-06-02] MEDS: SEVELAMER CARBONATE 800 MG POWD.PACK PO SCH (13:24)
[2025-06-02] MEDS: DOXAZOSIN MESYLATE (1 MG) 1 MG TABLET PO SCH (16:21)
[2025-06-02] MEDS: DIVALPROEX SODIUM 250 MG TABLET.DR PO SCH (16:21)
[2025-06-02] MEDS ORDERED: TAMSULOSIN 0.4 MG CAP.SR.24H PO SCH (22:00)
[2025-06-02] MEDS ORDERED: ATORVASTATIN 40 MG TABLET PO SCH (22:00)
[2025-06-02] MEDS ORDERED: TRAZODONE 50 MG TABLET PO SCH (22:00)
[2025-06-03] MEDS ORDERED: SPIRONOLACTONE 25 MG TABLET PO SCH (09:00)
[2025-06-03] MEDS ORDERED: ALLOPURINOL 100 MG TABLET PO SCH (09:00)
[2025-06-03] MEDS ORDERED: NIFEdipine XL (30MG) 30 MG TAB PO SCH (09:00)
== END 2025-06-02 17:05 | disposition home health service (06) | DRG 291 ==
LOC: ER 22:02 → TELE1 06-01 01:54
PROVIDERS: ADMIT Nurse Practitioner Acute Care; ATTEND Nurse Practitioner Acute Care
PROC: 5A1D70Z Performance of Urinary Filtration, Intermittent, Less than 6 Hours Per Day (ICD-10-PCS; principal; 2025-06-02)
DX: I13.2 Hypertensive heart and chronic kidney disease with heart failure and with stage 5 chronic kidney disease, or end stage renal disease (principal); I50.33 Acute on chronic diastolic (congestive) heart failure; J96.21 Acute and chronic respiratory failure with hypoxia; N18.6 End stage renal disease; Z99.2 Dependence on renal dialysis; F20.0 Paranoid schizophrenia; J44.9 Chronic obstructive pulmonary disease, unspecified; E11.22 Type 2 diabetes mellitus with diabetic chronic kidney disease; D64.9 Anemia, unspecified; E66.9 Obesity, unspecified; E78.5 Hyperlipidemia, unspecified; I50.30 Unspecified diastolic (congestive) heart failure; I25.2 Old myocardial infarction; N40.0 Benign prostatic hyperplasia without lower urinary tract symptoms; M10.9 Gout, unspecified; I48.91 Unspecified atrial fibrillation; Z79.899 Other long term (current) drug therapy; Z86.79 Personal history of other diseases of the circulatory system; K21.9 Gastro-esophageal reflux disease without esophagitis; Z88.8 Allergy status to other drugs, medicaments and biological substances; Z79.4 Long term (current) use of insulin; Z79.82 Long term (current) use of aspirin; F31.9 Bipolar disorder, unspecified; Z68.29 Body mass index [BMI] 29.0-29.9, adult; E87.5 Hyperkalemia; M89.8X9 Other specified disorders of bone, unspecified site; F17.200 Nicotine dependence, unspecified, uncomplicated; F11.91 Opioid use, unspecified, in remission
CPT/HCPCS: 36415; 71045-TC; 78582; 80048-TC; 80061-TC; 80076-TC; 82962-TC; 83735-TC; 83880; 84100-TC; 84484-TC; 85025-TC; 85027-TC; 85378-TC; 85730-TC; 90935-TC; 93307-TC; 93970-TC; 94760-TC; 94799-TC; 97112-TC; 97116-TC; 97530-TC; A9567; G0378; J0360; J1815; J7030